=== PATIENT | male | born 1935 | race Caucasian/White ===

== ENCOUNTER → 2017-09-17 | Outpatient (CLI) | payer MEDICARE ==
[~2017-09-17] MED LIST: ASPIRIN325 MG PO; COLACE100 MG PO; CRESTOR10 MG PO; IRBESARTAN150 MG PO; JANUVIA100 MG PO; MULTIVITAMINS1 EAC7 PO; VITAMIN D1000 UNI1 PO
--- NOTE | 2017-09-17 14:45 | Diagnostic Imaging Report ---
PROCEDURE: CT ABDOMEN AND PELVIS WITHOUT CONTRAST COMPARISON:[facility], CT, CT ABDOMEN/PELVIS WO, 08/06/2016, 13:46. INDICATIONS:RIGHT FLANK PAIN. RENAL STONES TECHNIQUE: Axial CT images through the abdomen and pelvis were obtained without contrast. Coronal and sagittal reformations were created. DLP: 611.14 mGY-cm FINDINGS: Right kidney: 3 mm calculus in the upper pole measured less than 1 mm on previous exam. Pixel-sized calculus in the lower pole is new. No renal mass or hydronephrosis. Left kidney: Multiple clustered calculi in the interpolar region with the largest calculus measuring 8 mm. These are new. Lower pole calculus measures 6 x 6 mm and is larger. No hydronephrosis or perinephric inflammation. The exophytic cyst in the anterior upper pole measures 2.5 x 3.6 cm and is stable. Bladder/ureters: The ureters are normal in diameter throughout their course without calculus. The bladder is partially distended but otherwise normal. Liver: Normal attenuation. No mass. Spleen: Normal size. No mass. Biliary: Present and is normal. No biliary ductal dilatation. Pancreas: Diffuse fatty atrophy without mass or ductal dilatation. Adrenal Glands: No mass. Vasculature: The aorta is normal in diameter. Scattered calcifications are present. GI: Small hiatal hernia. The stomach appears normal. Small bowel and large bowel are normal in diameter with normal wall thickness. There are scattered diverticula in the large bowel without associated inflammation. The appendix is normal. Peritoneum/Retroperitoneum: No free fluid or fluid collection. Lymph nodes: No enlarged abdominal retroperitoneal lymph nodes. Reproductive organs: Prostate gland and seminal vesicles are normal in morphology. MSK: Median sternotomy is well healed. No focal osseous lesions. Lung bases: No mass or infiltrate. Stable bibasilar reticulation. Small pleural effusions have resolved. CONCLUSION: 1. New and enlarging calculi in each kidney. No obstructive uropathy. 2. Resolved pleural effusions. 3. Other findings as described above are stable. Dictated by: Chavez Morales M.D. on 09/17/2017 at 14:50 Electronically approved by: Chavez Morales M.D. on 09/17/2017 at 14:50
== END ==
LOC: CT 12:43
PROVIDERS: ATTEND Urology
DX: N20.0 Calculus of kidney (principal)
CPT/HCPCS: 74176

== ENCOUNTER → 2017-12-13 | Outpatient (CLI) | payer MEDICARE | LOC: RAD 08:33 | PROVIDERS: ATTEND Internal Medicine Cardiovascular Disease | DX: R07.9 Chest pain, unspecified (principal); I25.10 Atherosclerotic heart disease of native coronary artery without angina pectoris ==

== ENCOUNTER 2018-01-02 12:57 | Observation (INO) | payer MEDICARE ==
[~2018-01-02] VITALS: Ht 180.3 cm; Wt 95.3 kg
--- OUTSIDE RECORDS SUMMARY | 2018-01-02 12:59 | XMS REPORT | Summary of Care ---
Author Author INDY CHOWDHURY M.D. Organization Unknown Address [facility] Phone Unavailable Care Team Providers Care Engineering Associate Name Role Phone INDY CHOWDHURY M.D. Unavailable Unavailable HOLLAND SOTO DO Unavailable Unavailable Unavailable Unavailable Functional Status Name Dates Details Functional status health issues are not documented Status: Name Dates Details Cognitive status health issues are not documented Status: Problems Name Dates Details High blood pressure (401.9, I10) Status: Active Excessive ear wax (380.4, H61.20) Status: Active Medications Name Dates Details Aleve TABS Active Aspirin TABS * Refills: 0 Active Benadryl Allergy TABS * Refills: 0 Active Centrum TABS * Refills: 0 Active Atorvastatin Calcium TABS * Refills: 0 Active Furosemide TABS * Refills: 0 Active Valsartan TABS * Refills: 0 Active Metoprolol Tartrate TABS * Refills: 0 Active Tradjenta TABS * Refills: 0 Active Januvia TABS * Refills: 0 Active Vitamin D CAPS * Refills: 0 Active Oxybutynin Chloride TABS * Refills: 0 Active Tamsulosin HCl CAPS * Refills: 0 Active Allergies and Adverse Reactions Name Dates Details No Known Allergies (Allergy) Status: Active Past Medical History Name Dates Details History of arthritis (V13.4, Z87.39) Status: Resolved History of Depressive disorder (311, F32.9) Status: Resolved Procedures Procedure Dates Details History of Heart Surgery Completed Immunization Name Dates Details Immunizations not documented Family History Name Dates Details No pertinent family history Comments: Other Status: Active Social History Name Dates Details - Status: Name Dates Details Never smoker Vital Signs Date Test Result Details :42 BP Systolic 116 mm[Hg] Status: BP Diastolic 77 mm[Hg] Status: Height 70 in Status: Weight 205 lb Status: Body Mass Index Calculated 29.41 kg/m2 Status: Body Surface Area Calculated 2.11 m2 Status: Heart Rate 87 /min Status: Results Date Description Value Details Results not documented Plan of Care Name Dates Details Planned Observations Planned Goals not documented Planned Encounters Appointment; INDY CHOWDHURY M.D. On: 06-Jan-2018 11:00 Interventions Provided Plan* 1. Cerumen removed. Fu in 6 months. Instructions Name Dates Details Instructions not documented Encounters Appointment; INDY CHOWDHURY M.D. Encounter Diagnosis: Problem not documented On: 20-Mar-2016 13:30 Appointment; INDY CHOWDHURY M.D. Encounter Diagnosis: Problem not documented On: 18-Sep-2016 13:30 Appointment; INDY CHOWDHURY M.D. Encounter Diagnosis: Problem not documented On: 12-Oct-2016 10:30 Appointment; INDY CHOWDHURY M.D. Encounter Diagnosis: Problem not documented On: 09-Jul-2017 8:15
--- OUTSIDE RECORDS SUMMARY | 2018-01-02 12:59 | XMS REPORT ---
Author Author [facility] Address Unknown Phone Unavailable Care Team Providers Care Exchange Mechanic Name Role Phone Dion GOODEN Unavailable Unavailable HAMPEL, DISHA Unavailable Unavailable Problems This patient has no known problems. Allergies, Adverse Reactions, Alerts This patient has no known allergies or adverse reactions. Medications This patient has no known medications. Results Test Description Test Time Test Comments Text Results Atomic Results Result Comments Stress Test - Treadmill ONLY 2017-12-17 16:13:00 [place] [id number] Patient Name : GILDARDO PENA MR #: [id number] : 1935 Age/Sex: 82/M Adm Physician : RAS GOODEN MD Admit Date : Location : RAD Room/Bed : REPORT: Cardiology Report DATE OF STUDY: December 17, 2017 NUCLEAR STRESS TEST PROCEDURE INDICATIONS: Chest pain, history of CAD, preoperative evaluation. INTERPRETING AND SUPERVISING PHYSICIAN: Ras Oneal MD, Interventional Cardiology. INTERPRETATION: At rest, heart rate was 56, blood pressure 134/77. Resting EKG was normal sinus rhythm, normal EKG. After Lexiscan was administered, the heart rate nolan to a peak of 77 beats per minute, and the blood pressure decreased to 116/66. There were no significant ST changes or arrhythmias. Myocardial perfusion revealed normal rest and stress perfusion. Gated images demonstrated preserved left ventricular systolic function, normal regional wall motion, with left ventricular ejection fraction of 62%. CONCLUSIONS 1. Normal hemodynamic response to Lexiscan stress. 2. Normal electrocardiographic response to Lexiscan stress. 3. Normal myocardial perfusion at rest and at stress. 4. Preserved left ventricular systolic function with left ventricular ejection fraction of 62%. Job#: [id number] Signature Date Dictated By: RAS ANSARI MD Transcribed By: SMEDS on 12/17/17 <Electronically signed by RAS ANSARI MD><<Signature on File>>12/19/17 [id number] COPY TO: CT ABDOMEN/PELVIS WO 2017-09-17 14:50:00 [place] [id number] Patient Name: GILDARDO PENA MR #: [id number] : 1935 Age/Sex: 81/M Req #: [id number] Adm Physician: Ordered by: DISHA TAPIA MD Report #: [id number] Location: CT Room/Bed: Procedure: [id number] CT/CT ABDOMEN/PELVIS WO Exam Date: 09/17/17 Exam Time: 1326 REPORT STATUS: Signed PROCEDURE: CT ABDOMEN AND PELVIS WITHOUT CONTRAST COMPARISON: [facility], CT, CT ABDOMEN/PELVIS WO, 08/06/2016, 13:46. INDICATIONS: RIGHT FLANK PAIN. RENAL STONES TECHNIQUE: Axial CT images through the abdomen and pelvis were obtained without contrast. Coronal and sagittal reformations were created. DLP: 611.14 mGY-cm FINDINGS: Right kidney: 3 mm calculus in the upper pole measured less than 1 mm on previous exam. Pixel- sized calculus in the lower pole is new. No renal mass or hydronephrosis. Left kidney: Multiple clustered calculi in the interpolar region with the largest calculus measuring 8 mm. These are new. Lower pole calculus measures 6 x 6 mm and is larger. No hydronephrosis or perinephric inflammation. The exophytic cyst in the anterior upper pole measures 2.5 x 3.6 cm and is stable. Bladder/ureters: The ureters are normal in diameter throughout their course without calculus. The bladder is partially distended but otherwise normal. Liver: Normal attenuation. No mass. Spleen: Normal size. No mass. Biliary: Present and is normal. No biliary ductal dilatation. Pancreas: Diffuse fatty atrophy without mass or ductal dilatation. Adrenal Glands: No mass. Vasculature: The aorta is normal in diameter. Scattered calcifications are present. GI: Small hiatal hernia. The stomach appears normal. Small bowel and large bowel are normal in diameter with normal wall thickness. There are scattered diverticula in the large bowel without associated inflammation. The appendix is normal. Peritoneum/Retroperitoneum: No free fluid or fluid collection. Lymph nodes: No enlarged abdominal retroperitoneal lymph nodes. Reproductive organs: Prostate gland and seminal vesicles are normal in morphology. MSK: Median sternotomy is well healed. No focal osseous lesions. Lung bases: No mass or infiltrate. Stable bibasilar reticulation. Small pleural effusions have resolved. CONCLUSION: 1. New and enlarging calculi in each kidney. No obstructive uropathy. 2. Resolved pleural effusions. 3. Other findings as described above are stable. Dictated by: Yaima Morales M.D. on 09/17/2017 at 14:50 Electronically approved by: Yaima Morales M.D. on 09/17/2017 at 14:50 Dictated By: YAIMA MORALES MD 1450 Transcribed By: DEANNA on 09/17/17 1450 COPY TO: DISHA TAPIA MD
[2018-01-02 13:52] LABS: BASOPHILS % 0.1 % (0.0-1.0); EOSINOPHILS # (AUTO) 0.1 (0.0-0.4); EOSINOPHILS % 0.9 % (0.0-6.0); HEMATOCRIT 38.3 % (38.2-49.6); HEMOGLOBIN 12.5 g/dL (14.0-18.0); LYMPHOCYTES # (AUTO) 0.7 (1.0-3.2); MEAN CORPUSCULAR HEMOGLOBIN 29.5 pg (28-32); MEAN CORPUSCULAR HGB CONC 32.6 g/dL (31-35); MEAN CORPUSCULAR VOLUME 90.3 fL (81-99); MONOCYTES # (AUTO) 1.1 (0.2-0.8); MONOCYTES % 10.7 % (4.4-11.3); NEUTROPHILS # (AUTO) 8.6 (2.1-6.9); NEUTROPHILS % 80.9 % (38.7-80.0); PLATELET COUNT 131 x10e3/uL (140-360); RED BLOOD COUNT 4.24 x10e6/uL (4.3-5.7); RED CELL DISTRIBUTION WIDTH 13.2 % (11.7-14.4)
[2018-01-02 14:03] LABS: INR 1.06; PARTIAL THROMBOPLASTIN TIME 34.8 seconds (23.8-35.5); PROTHROMBIN TIME 14.8 seconds (11.9-14.5)
[2018-01-02 14:10] LABS: ALBUMIN 3.7 g/dL (3.5-5.0); ANION GAP 13.2 mmol/L (8-16); CREATININE, SERUM 2.09 mg/dL (0.72-1.25); POTASSIUM 4.2 mmol/L (3.5-5.1)
[2018-01-02 14:17] LABS: CREATINE KINASE MB 1.9 ng/mL (0-5.0)
--- NOTE | 2018-01-02 14:32 | Diagnostic Imaging Report ---
EXAMINATION: CHEST SINGLE (PORTABLE) COMPARISON: None INDICATION: Leg swelling, stone DISCUSSION: Frontal view of the chest obtained at 1410 hours. HEART AND MEDIASTINUM: The heart is enlarged. The aorta is mildly ectatic. There are postoperative changes suggestive of bypass LINES: None. LUNGS: Mild hyperinflation. No mass or infiltrate. No pneumonia or pulmonary edema. PLEURA: No pleural effusion or pneumothorax. BONES AND SOFT TISSUES: Median sternotomy wires are intact. The soft tissues are normal. IMPRESSION: Cardiomegaly without vascular congestion. No acute pulmonary process. Signed by: Dr. Chavez Morales MD on 01/02/2018 2:28 PM
[2018-01-02] MEDS ORDERED: KETOROLAC TROMETHAMINE 30 MG/ML VIAL IV ONE (15:00)
--- NOTE | 2018-01-02 15:00 | Diagnostic Imaging Report ---
CT Abdomen and Pelvis without contrast INDICATION: Renal stones, abdominal pain TECHNIQUE: Thin collimation axial images obtained from the diaphragm to the level of the pubic symphysis without nonionic intravenous contrast. RADIATION DOSE: Total DLP: 612.7 mGy*cm Estimated effective dose: (DLP x 0.015 x size factor) mSv CTDIvol has been reviewed. It is below the limits set by the Radiation Protocol Committee (RPC). COMPARISON: CT abdomen/pelvis 09/17/2017. ABDOMEN FINDINGS: Lung Bases: Mild hyperinflation. Reticulation of the middle lobe is stable. New subsegmental atelectasis of the left lung base. There is a small hiatal hernia. Liver: Normal in attenuation without mass. Gallbladder: Present and appears normal. No ductal dilatation. Pancreas: Diffusely atrophic. No mass or ductal dilatation. Spleen: Measures 13 cm in length. No mass. Adrenal Glands: No evidence for mass. Kidneys: Right: Calculus in the upper pole measures 4 mm. No collecting system dilatation. No cortical mass. Left: Diffusely edematous with perinephric inflammation. Multiple intrarenal calculi, the largest measuring 10 mm. Upper pole cyst measures 3.3 cm and is stable. The collecting system is dilated. Lymph Nodes: No enlarged abdominal or retroperitoneal lymph nodes.. Aorta: Normal in diameter. PELVIS FINDINGS: Bowel: Stomach: Normal. Small Bowel: Normal in caliber with normal wall thickness. Large Bowel: Scattered diverticula. No associated inflammation. Mild to moderate stool burden. Appendix: Normal. Bladder: Normal. Ureters: Calculus in the proximal/mid left ureter measures 8 mm. No calculus in the remainder of the ureter. Right ureter is normal in diameter throughout its course without calculus. Prostate gland and seminal vesicles are normal. No free fluid or fluid collection. Bones: Mild degenerative changes of the spine. No compression fractures. Trace anterolisthesis of L4 on L5 is stable without pars defects. Bone island in the L4 vertebral body is stable. Soft tissues: Unremarkable. IMPRESSION: 1. Obstructing calculus in the proximal/mid left ureter. 2. Bilateral intrarenal calculi, the largest in the left kidney. Stable left renal cyst. 3. Diverticulosis coli. Small hiatal hernia. Signed by: Dr. Chavez Morales MD on 01/02/2018 2:56 PM
[2018-01-02] MEDS ORDERED: MORPHINE SULFATE 2 MG/ML SYR IV PRN (16:00)
[2018-01-02] MEDS: SODIUM CHLORIDE 0.9% 1000ML 1,000 ML IV SCH (17:10)
[2018-01-02] MEDS: CEFTRIAXONE SOD 1 GM VIAL IV SCH (17:10)
[2018-01-02 17:43] LABS: BILIRUBIN,URINE NEGATIVE (NEGATIVE); CLARITY,URINE CLEAR (CLEAR); COLOR,URINE YELLOW (YELLOW); KETONES,URINE NEGATIVE (NEGATIVE); LEUKOCYTE ESTERASE ,URINE NEGATIVE (NEGATIVE); NITRITE,URINE NEGATIVE (NEGATIVE); PROTEIN,URINE DIPSTICK 1+ (NEGATIVE); URINE UROBILINOGEN 0.2 mg/dL (0.2 - 1)
[2018-01-02 17:46] LABS: AMORPHOUS SEDIMENT,URINE MODERATE (FEW); EPITHELIAL CELLS,URINE RARE /LPF; RBC,URINE 0-5 /HPF (0-5); WBC,URINE (MAN) 0-5 /HPF (0-5)
[2018-01-02 20:00] VITALS: BP 148/64
[2018-01-02 21:00] VITALS: BP 148/64
[2018-01-03] VITALS (9 sets, daily range): BP systolic 102–176; BP diastolic 55–77
[2018-01-03] MEDS: SODIUM CHLORIDE 0.9% 1000ML 1,000 ML IV SCH ×3 (01:15→12:30)
[2018-01-03 06:16] LABS: BASOPHILS % 0.2 % (0.0-1.0); EOSINOPHILS # (AUTO) 0.2 (0.0-0.4); EOSINOPHILS % 1.7 % (0.0-6.0); HEMATOCRIT 34.7 % (38.2-49.6); HEMOGLOBIN 11.3 g/dL (14.0-18.0); LYMPHOCYTES # (AUTO) 0.7 (1.0-3.2); LYMPHOCYTES % 8.2 % (18.0-39.1); MEAN CORPUSCULAR HEMOGLOBIN 29.6 pg (28-32); MEAN CORPUSCULAR HGB CONC 32.6 g/dL (31-35); MEAN CORPUSCULAR VOLUME 90.8 fL (81-99); MONOCYTES % 11.8 % (4.4-11.3); NEUTROPHILS # (AUTO) 6.7 (2.1-6.9); NEUTROPHILS % 77.6 % (38.7-80.0); PLATELET COUNT 110 x10e3/uL (140-360); RED BLOOD COUNT 3.82 x10e6/uL (4.3-5.7); RED CELL DISTRIBUTION WIDTH 13.2 % (11.7-14.4)
[2018-01-03 06:38] LABS: ANION GAP 12.9 mmol/L (8-16); CALCIUM 8.8 mg/dL (8.4-10.2); CREATININE, SERUM 1.9 mg/dL (0.72-1.25); POTASSIUM 3.9 mmol/L (3.5-5.1)
[2018-01-03] MEDS ORDERED: IOPAMIDOL 610MG/1ML 300 MG/ML VIAL IV ONE (06:53)
--- NOTE | 2018-01-03 07:50 | History and Physical ---
PRIMARY CARE PHYSICIAN: Dr. Packer CHIEF COMPLAINT: Left flank pain. HISTORY OF PRESENT ILLNESS: This is an 82-year-old man with a history of ureterolithiasis, now developing left flank pain in addition to severe deconditioning and difficulty with walking requiring assistance with even standing. The patient has increased fluid retention in his lower extremities combined with the flank pain. He came to the hospital for further evaluation and management. Here he was found to have an 8 mm left ureteral stone, which is in the midproximal region and obstructive. Urology was consulted. He was admitted for further evaluation and management. The patient also had a fall 3 days ago due to his ambulatory dysfunction and difficulties. PAST MEDICAL HISTORY: Hypertension, hyperlipidemia, coronary artery disease, status post coronary artery bypass grafting, diabetes mellitus, type 2, unstable angina, obesity, sepsis secondary to urinary tract infection in May of 2016, acute kidney injury, complicated urinary tract infection with left ureteral stone, left ureterolithiasis, left hydroureter and hydronephrosis, overweight state. PAST SURGICAL HISTORY: Coronary artery bypass grafting and right wrist. ALLERGIES: PER ELECTRONIC MEDICAL RECORD. FAMILY HISTORY/SOCIAL HISTORY: Patient is single. He has 3 children. No alcohol, illicits or cigarettes. MEDICATIONS: Per electronic medical record. REVIEW OF SYSTEMS: Denies any dizziness, chest pain, shortness of breath. Denies any fever, chills, sweats. Denies any headache, vision changes, leg pain. PHYSICAL EXAMINATION VITAL SIGNS: Have been reviewed. GENERAL: A tired-appearing man resting in bed. HEENT: Anicteric. His left eye is opaque. CARDIOVASCULAR: Normal S1 and S2. LUNGS: Moderate breath sounds. ABDOMEN: Soft and nondistended. Minimal tenderness in the left abdominal region. EXTREMITIES: He has 1+ leg edema bilaterally. SKIN: Dry. PSYCHIATRIC: Flat affect. NEUROLOGIC: He is alert and appropriate. He moves all extremities. LABS: Reviewed. MEDICATIONS: Reviewed. ASSESSMENT: An 82-year-old man with: 1. Left ureterolithiasis. 2. Left flank pain. 3. Diabetes mellitus, type 2. 4. Coronary artery disease. 5. Acute kidney injury. 6. Hyperbilirubinemia. 7. Obstructive uropathy. 8. Hyperbilirubinemia. 9. Diverticulosis. 10. Hiatal hernia. PLAN 1. Urology consultation. 2. Rehydrate the patient. 3. Ambulate the patient. 4. Physical therapy consultation. 5. Skilled facility placement consultation per family request. 6. Will continue with SCDs. Will continue with antibiotics empirically. Follow up urology recommendations. Job#: [id number] RI
[2018-01-03] MEDS ORDERED: FENTANYL CITRATE/PF 100MCG/2 ML INJ ONE ×2 (08:38→17:14)
[2018-01-03] MEDS: PHENAZOPYRIDINE HCL 100 MG TAB PO SCH ×3 (10:42→17:48)
[2018-01-03] MEDS: MORPHINE SULFATE INJ 4 MG/ML INJ IV PRN ×2 (14:10→19:17)
[2018-01-03] MEDS: ONDANSETRON HCL INJ 2 MG/ML VIAL IV PRN (14:11)
[2018-01-03] MEDS ORDERED: SEVOFLURANE INHAL SOLN 250 ML PEN BTL ONE (17:09)
[2018-01-03] MEDS ORDERED: LIDOCAINE HCL 2% LOCAL INJ 5 ML SDV VIAL INJ ONE (17:09)
[2018-01-03] MEDS ORDERED: ONDANSETRON HCL INJ 2 MG/ML VIAL ONE (17:09)
[2018-01-03] MEDS ORDERED: PROPOFOL IV EMULSION 10 MG/ML 20 ML VIAL ONE (17:09)
[2018-01-03] MEDS ORDERED: DEXAMETHASONE SOD PHOS INJ 4 MG/ML VIAL ONE (17:09)
[2018-01-03] MEDS: CEFTRIAXONE SOD 1 GM VIAL IV SCH (17:48)
[2018-01-04] VITALS (8 sets, daily range): BP systolic 127–164; BP diastolic 58–85
[2018-01-04] MEDS: MORPHINE SULFATE INJ 4 MG/ML INJ IV PRN (01:21)
[2018-01-04 06:24] LABS: BASOPHILS % 0.3 % (0.0-1.0); EOSINOPHILS # (AUTO) 0.1 (0.0-0.4); EOSINOPHILS % 0.8 % (0.0-6.0); HEMATOCRIT 33.6 % (38.2-49.6); HEMOGLOBIN 11.2 g/dL (14.0-18.0); LYMPHOCYTES # (AUTO) 0.8 (1.0-3.2); LYMPHOCYTES % 10.2 % (18.0-39.1); MEAN CORPUSCULAR HEMOGLOBIN 29.7 pg (28-32); MEAN CORPUSCULAR HGB CONC 33.3 g/dL (31-35); MEAN CORPUSCULAR VOLUME 89.1 fL (81-99); MONOCYTES # (AUTO) 0.7 (0.2-0.8); MONOCYTES % 9.9 % (4.4-11.3); NEUTROPHILS # (AUTO) 5.8 (2.1-6.9); NEUTROPHILS % 78.5 % (38.7-80.0); PLATELET COUNT 110 x10e3/uL (140-360); RED BLOOD COUNT 3.77 x10e6/uL (4.3-5.7); RED CELL DISTRIBUTION WIDTH 12.9 % (11.7-14.4)
[2018-01-04 06:41] LABS: CALCIUM 8.8 mg/dL (8.4-10.2); CREATININE, SERUM 1.41 mg/dL (0.72-1.25)
[2018-01-04] MEDS: PHENAZOPYRIDINE HCL 100 MG TAB PO SCH ×3 (08:40→17:15)
[2018-01-04] MEDS: SODIUM CHLORIDE 0.9% 1000ML 1,000 ML IV SCH ×3 (08:40→16:00)
--- NOTE | 2018-01-04 09:44 | Diagnostic Imaging Report ---
PROCEDURE:X-RAY ABDOMEN - KUB COMPARISON:CT scan of the abdomen and pelvis dated 1027 2017. INDICATIONS:CALCULUS OF KIDNEY FINDINGS: There is a double-J ureteral stent overlying the left kidney with the inferior portion not visualized due to positioning. There is a non-obstructed bowel-gas pattern. Several calcifications overlie the left kidney. There are no acute osseous abnormalities. CONCLUSION: Left renal lithiasis with a partially visualized left double-J ureteral stent. Dawson Hernandez D.O. Dictated by: Dawson Hernandez D.O. on 01/04/2018 at 9:53 Electronically approved by: Dawson Hernandez D.O. on 01/04/2018 at 9:53
[2018-01-04] MEDS ORDERED: MAGNESIUM HYDROXIDE 30 ML UDC PO ONE (12:00)
[2018-01-04] MEDS: HYDRALAZINE HCL 25 MG TAB PO SCH ×2 (15:00→21:46)
[2018-01-04] MEDS: SENNA-S TABLET PO SCH (17:00)
[2018-01-04] MEDS: CEFTRIAXONE SOD 1 GM VIAL IV SCH (17:15)
[2018-01-05] MEDS: SODIUM CHLORIDE 0.9% 1000ML 1,000 ML IV SCH (00:01)
[2018-01-05 00:28] VITALS: BP 159/78
[2018-01-05] MEDS: ONDANSETRON HCL INJ 2 MG/ML VIAL IV PRN (02:36)
[2018-01-05] MEDS: MORPHINE SULFATE INJ 4 MG/ML INJ IV PRN (02:37)
[2018-01-05 05:15] VITALS: BP 151/73
[2018-01-05 07:31] LABS: ANION GAP 10.7 mmol/L (8-16); BLOOD UREA NITROGEN 20 mg/dL (7-26); BUN/CREATININE RATIO 19 (6-25); CALCIUM 8.6 mg/dL (8.4-10.2); CARBON DIOXIDE 27 mmol/L (22-29); CHLORIDE 105 mmol/L (98-107); CREATININE, SERUM 1.05 mg/dL (0.72-1.25); EST GLOMERULAR FILTRATION RATE > 60 ML/MIN (60-); GLUCOSE 99 mg/dL (74-118); POTASSIUM 3.7 mmol/L (3.5-5.1); SODIUM 139 mmol/L (136-145)
[2018-01-05 08:29] VITALS: BP 149/76
[2018-01-05 08:48] VITALS: BP 149/76
[2018-01-05] MEDS: HYDRALAZINE HCL 25 MG TAB PO SCH ×2 (08:48→16:40)
[2018-01-05] MEDS: PHENAZOPYRIDINE HCL 100 MG TAB PO SCH ×3 (08:48→17:10)
[2018-01-05] MEDS: SENNA-S TABLET PO SCH ×2 (08:48→17:09)
[2018-01-05] MEDS ORDERED: DOCUSATE SODIUM 100 MG CAP PO SCH (09:00)
[2018-01-05 12:39] VITALS: BP 139/58
[2018-01-05 17:05] VITALS: BP 134/95
[2018-01-05] MEDS: CEFTRIAXONE SOD 1 GM VIAL IV SCH (17:10)
[2018-01-14] MEDS ORDERED: PHENAZOPYRIDIN100 MG PO (06:49)
[2018-01-14] MEDS ORDERED: [UNRECOGNIZED DRUG - OTHER] PO (06:49)
[2018-01-14] MEDS ORDERED: NORCO 10-325 T1 EACH PO (06:49)
[2018-01-14] MEDS ORDERED: HYDRALAZINE HCL25 MG PO (06:49)
[2018-01-14] MEDS ORDERED: COMBIVENT RESPIM4 GM IH (06:49)
[2018-01-14] MEDS ORDERED: POTASSIUM CHLO10 ME1 PO (06:49)
[2018-01-14] MEDS ORDERED: DOCUSATE SODIU100 MG PO (06:49)
[2018-01-14] MEDS ORDERED: MULTI-VITAMIN1 EACH (06:49)
[2018-01-14] MEDS ORDERED: LASIX20 MG PO (06:49)
[2018-01-14] MEDS ORDERED: SENNA LAX8.6 MG PO (06:49)
--- NOTE | 2018-02-10 02:51 | Operative Report ---
DATE OF PROCEDURE: January 03, 2018 PREOPERATIVE DIAGNOSES 1. Left hydronephrosis due to stone. 2. Acute renal insufficiency. POSTOPERATIVE DIAGNOSES 1. Left hydronephrosis due to stone. 2. Acute renal insufficiency. OPERATIONS PERFORMED 1. Cystourethroscopy with bilateral ureteral catheterization and retrograde ureteropyelography (separate procedure performed for the renal failure). 2. Interpretation of retrograde ureteropyelography. 3. Supervision of fluoroscopy. No radiologist present. 4. Cystourethroscopy with insertion of left indwelling ureteral stent (separate procedure performed to relieve the hydronephrosis). ANESTHESIA: General. COMPLICATIONS: None. CLINICAL SUMMARY: Alex Leiva is an 82-year-old man with complicated urological history. He has an obstructing stone in the left ureter and hydronephrosis. He needs multiple additional procedures. He is an ill man and requires fairly significant monitoring. He is aware of the risks of bleeding infection injury to adjacent structures, need for additional procedures and elected to proceed. OPERATIVE PROCEDURE IN DETAIL: Informed consent was verified. Alex Leiva was properly identified, taken to operating room, placed on the cystoscopy table in supine position. Anesthesia was uneventfully begun. The patient was then carefully and gently repositioned in dorsal lithotomy position with all pressure points well padded. His genitalia were prepared and draped in usual sterile fashion. The 22.5-Hungarian cystoscope sheath with the visual obturator in place was atraumatically inserted into the patient's urethra. It was guided down to the relatively unremarkable urethra through the normal sphincteric region through the prostate bed, which exhibited BPH. We entered the patient's bladder. We identified yellowish sand within the bladder. Normally positioned and configured ureteral orifices were identified. There were trabeculations noted. A ureteral catheter was used to cannulate each ureter and retrograde ureteropyelography was performed. Interpretation of retrograde ureteropyelography: Contrast was instilled in retrograde fashion bilaterally. There were no tumors, no stones, no diverticula on the right hand side. The left hand side exhibited a left ureteral stone that was obstructing. There were multiple left-sided renal filling defects consistent with radiolucent stones or at least poorly calcified stones. With the utilization of a hydrophilic guidewire, we were able to pass by the ureteral stone. Subsequently, were able to negotiate an indwelling ureteral stent. It was coiled in patient's kidney, as well as patient's bladder. The retaining suture was cut short. The patient's bladder was then drained. The cystoscope was withdrawn and the patient was uneventfully reversed from anesthesia and taken to recovery room in stable condition. Plans will be to proceed with routine postoperative care once the patient is stable, will plan on performing next stage of his stone management. It will include either an ESWL or a ureteroscopic procedure. Job#: [id number] CQ
== END 2018-01-05 18:31 ==
LOC: ER 12:57 → ERHOLD 16:00 → MED/SURG 18:50
PROVIDERS: ADMIT Internal Medicine; ATTEND Internal Medicine
DX: N13.2 Hydronephrosis with renal and ureteral calculous obstruction (principal); I25.10 Atherosclerotic heart disease of native coronary artery without angina pectoris; Z95.1 Presence of aortocoronary bypass graft; E11.9 Type 2 diabetes mellitus without complications; E78.5 Hyperlipidemia, unspecified; Z82.49 Family history of ischemic heart disease and other diseases of the circulatory system; Z91.81 History of falling; I10 Essential (primary) hypertension; N17.9 Acute kidney failure, unspecified; E80.6 Other disorders of bilirubin metabolism; N13.9 Obstructive and reflux uropathy, unspecified; K57.90 Diverticulosis of intestine, part unspecified, without perforation or abscess without bleeding; K44.9 Diaphragmatic hernia without obstruction or gangrene; D64.9 Anemia, unspecified; N40.0 Benign prostatic hyperplasia without lower urinary tract symptoms
CPT/HCPCS: 36415 ×4; 51700; 52332; 71045; 74018; 74176; 74420; 80048 ×3; 80053; 81001; 82550; 82553; 82948 ×4; 83880; 83970; 84484; 84550; 85025 ×3; 85610; 85730; 87086 ×2; 93005; 97116 ×3; 97139 ×3; 97161; 99284; C2617; G0378 ×4; G8978; G8979; J0696 ×4; J1100; J1885; J2001; J2270 ×4; J2405 ×2; J2704; J7030 ×4; Q9967

== ENCOUNTER → 2018-01-14 | Day surgery (SDC) | payer MEDICARE ==
[~2018-01-14] MED LIST changes: +CEFTRIAXONE SOD 1 GM VIAL ONE; +COMBIVENT RESPIM4 GM IH; +DEXAMETHASONE SOD PHOS INJ 4 MG/ML VIAL ONE; +DOCUSATE SODIU100 MG PO; +EPHEDRINE SULFATE INJ 50 MG/10 ML SYR ONE; +FENTANYL CITRATE/PF 100MCG/2 ML INJ ONE; +HYDRALAZINE HCL25 MG PO; +IOPAMIDOL 610MG/1ML 300 MG/ML VIAL IV ONE; +LASIX20 MG PO; +LIDOCAINE HCL 2% LOCAL INJ 5 ML SDV VIAL INJ ONE; +MIDAZOLAM HCL 2 MG/2 ML VIAL ONE; +MULTI-VITAMIN1 EACH; +NORCO 10-325 T1 EACH PO; +ONDANSETRON HCL INJ 2 MG/ML VIAL ONE; +PHENAZOPYRIDIN100 MG PO; +POTASSIUM CHLO10 ME1 PO; +PROPOFOL IV EMULSION 10 MG/ML 20 ML VIAL ONE; +SENNA LAX8.6 MG PO; +SEVOFLURANE INHAL SOLN 250 ML PEN BTL ONE; +[UNRECOGNIZED DRUG - OTHER] PO
--- NOTE | 2018-01-14 07:43 | Diagnostic Imaging Report ---
Abdomen, 2 views dated 01/14/2018. History: Renal stones Comparison: KUB dated 01/04/[address] of the abdomen and pelvis dated 01/02/2018 Findings: The small intrarenal stones visualized on the prior CT are not readily apparent on this study due to overlying bowel gas interference. There is a left double-J ureteral stent present. Stones around the pigtail within the renal pelvis are noted. The intestinal gas pattern is nonobstructive. There no masses. The osseous structures are intact. IMPRESSION: 1. No acute abdominal abnormality. 2. Left double-J ureteral stent has been placed with apparent stones around the pigtail in the renal pelvis. Signed by: Dr. Dawson Hernandez DO on 01/14/2018 7:39 AM
[2018-01-14 12:40] VITALS: BP 155/82
--- NOTE | 2018-02-14 06:47 | Operative Report ---
DATE OF PROCEDURE: January 14, 2018 PREOPERATIVE DIAGNOSIS: Left nephrolithiasis. POSTOPERATIVE DIAGNOSIS: Left nephrolithiasis. OPERATIONS PERFORMED 1. Left-sided extracorporeal shock wave lithotripsy (staged procedure). 2. Supervision of fluoroscopy. No radiologist presents. ANESTHESIA: General. COMPLICATIONS: None. CLINICAL SUMMARY: Alex Leiva is an 82-year-old complicated patient. He has a stent in place. He is brought for lithotripsy. He is aware of the risks of bleeding, infection, injury to adjacent structures, need for additional procedures, and elected proceed. OPERATIVE PROCEDURE IN DETAIL: Informed consent was verified. Alex Leiva was properly identified and taken to the operating room and placed on the lithotripsy table in the supine position. Anesthesia was uneventfully begun. The patient's left midpole stone was identified by biplanar fluoroscopy, and 2000 shocks were delivered to this 10-mm stone with excellent fragmentation. I could not visualize a stone in the lower pole, and I could not visualize a stone within the ureter. The stent was in good position. The patient was then uneventfully reversed from anesthesia and taken to the recovery room in stable condition. There were no complications to the procedure. He tolerated the procedure well. Plans will be to return the patient to the operating room to perform a left ureteroscopy with laser standing by, and remove his stent. Job#: [id number] KENNETH
== END | disposition home or self-care (01) ==
LOC: OR 05:36
PROVIDERS: ATTEND Urology
DX: N20.0 Calculus of kidney (principal); Z96.0 Presence of urogenital implants; I25.709 Atherosclerosis of coronary artery bypass graft(s), unspecified, with unspecified angina pectoris; I10 Essential (primary) hypertension; E11.9 Type 2 diabetes mellitus without complications; E03.9 Hypothyroidism, unspecified; E78.5 Hyperlipidemia, unspecified; Z79.82 Long term (current) use of aspirin; Z79.84 Long term (current) use of oral hypoglycemic drugs; Z95.1 Presence of aortocoronary bypass graft
CPT/HCPCS: 36415; 50590; 74018; 82948; J0696; J1100; J2001; J2250; J2405; J2704

== ENCOUNTER 2018-02-06 16:05 | Emergency (ER) | payer MEDICARE ==
[~2018-02-06] VITALS: Ht 180.3 cm; Wt 95.3 kg
[~2018-02-06 16:05] MED LIST changes: -CEFTRIAXONE SOD 1 GM VIAL ONE; -DEXAMETHASONE SOD PHOS INJ 4 MG/ML VIAL ONE; -EPHEDRINE SULFATE INJ 50 MG/10 ML SYR ONE; -FENTANYL CITRATE/PF 100MCG/2 ML INJ ONE; -IOPAMIDOL 610MG/1ML 300 MG/ML VIAL IV ONE; -LIDOCAINE HCL 2% LOCAL INJ 5 ML SDV VIAL INJ ONE; -MIDAZOLAM HCL 2 MG/2 ML VIAL ONE; -ONDANSETRON HCL INJ 2 MG/ML VIAL ONE; -PROPOFOL IV EMULSION 10 MG/ML 20 ML VIAL ONE; -SEVOFLURANE INHAL SOLN 250 ML PEN BTL ONE
--- NOTE | 2018-02-06 17:37 | Diagnostic Imaging Report ---
Examination: CT head without contrast Clinical Indication: Fall. Head injury. Technique: Transaxial noncontrast images from the skull base through the vertex were obtained. Sagittal and coronal reformatted images were done. Dose modulation, iterative reconstruction, and/or weight based adjustment of the mA/kV was utilized to reduce the radiation dose to as low as reasonably achievable. Comparison: None. Findings: Scalp: There is a small left frontal scalp hematoma. Bones: Intact. No fractures. No blastic or lytic lesions. Brain sulci: Mild volume loss for patient's age. Ventricles: No hydrocephalus. Extra-axial space: No abnormalities. Parenchyma: There are confluent areas of low-attenuation within subcortical and periventricular white matter, nonspecific, but could represent microvascular ischemic disease. A chronic lacunar infarct is demonstrated in the right thalamus. No masses, hemorrhage, or acute or chronic cortical based vascular insults. Suprasellar region: No abnormalities. Craniocervical junction: The foramen magnum is patent. No Chiari one malformation. Incidental findings: Atherosclerotic calcification of the cavernous and supraclinoid internal carotid and V4 segments of the bilateral vertebral arteries. Impression: 1. Small left frontal scalp hematoma. 2. No associated fracture or acute intracranial hemorrhage. 3. Mild chronic microvascular ischemic change and mild volume loss. 4. 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 Signed by: Dr. Martha Saleem M.D. on 02/06/2018 5:34 PM
--- NOTE | 2018-02-06 17:39 | Diagnostic Imaging Report ---
Examination: CT CERVICAL SPINE WITHOUT HISTORY:Neck injury after fall. COMPARISON:None. TECHNIQUE: Multidetector helical axial images were obtained without contrast from the foramen magnum to T1. Coronal and sagittal reformatted images were done. Bone and soft tissue windows were evaluated. Dose modulation, iterative reconstruction, and/or weight based adjustment of the mA/kV was utilized to reduce the radiation dose to as low as reasonably achievable. FINDINGS: Alignment:Normal alignment and lordosis. Vertebrae: Normal height and density. No acute fracture, infection or neoplasm. Disc space heights: Normal height. Caliber of spinal canal: Developmentally normal. Posterior fossa and craniocervical junction: Foramen magnum patent. No Chiari 1 malformation. Soft tissues: Atherosclerotic calcification of the bilateral carotid bifurcations. Degenerative changes: Severe joint space narrowing at C1-C2. No disc bulge/ herniation or foraminal or canal stenosis. IMPRESSION: No acute abnormalities. Signed by: Dr. Matrha Saleem M.D. on 02/06/2018 5:35 PM
[2018-02-06 19:15] VITALS: BP 160/85
== END 2018-02-06 18:30 | disposition home or self-care (01) ==
LOC: ER 16:05
DX: S00.81XA Abrasion of other part of head, initial encounter (principal); S50.312A Abrasion of left elbow, initial encounter; S80.212A Abrasion, left knee, initial encounter; S80.211A Abrasion, right knee, initial encounter; W01.0XXA Fall on same level from slipping, tripping and stumbling without subsequent striking against object, initial encounter; Y93.01 Activity, walking, marching and hiking; Y92.480 Sidewalk as the place of occurrence of the external cause; I10 Essential (primary) hypertension; E11.9 Type 2 diabetes mellitus without complications; I25.10 Atherosclerotic heart disease of native coronary artery without angina pectoris
CPT/HCPCS: 70450; 72125; 99283

== ENCOUNTER → 2018-03-02 | Day surgery (SDC) | payer MEDICARE ==
[2018-02-25 12:50] LABS: BASOPHILS % 0.3 % (0.0-1.0); EOSINOPHILS # (AUTO) 0.1 (0.0-0.4); EOSINOPHILS % 1.9 % (0.0-6.0); HEMATOCRIT 38.6 % (38.2-49.6); HEMOGLOBIN 12.5 g/dL (14.0-18.0); LYMPHOCYTES # (AUTO) 0.9 (1.0-3.2); LYMPHOCYTES % 16.3 % (18.0-39.1); MEAN CORPUSCULAR HEMOGLOBIN 29.3 pg (28-32); MEAN CORPUSCULAR HGB CONC 32.4 g/dL (31-35); MEAN CORPUSCULAR VOLUME 90.4 fL (81-99); MONOCYTES # (AUTO) 0.6 (0.2-0.8); MONOCYTES % 9.5 % (4.4-11.3); NEUTROPHILS # (AUTO) 4.1 (2.1-6.9); NEUTROPHILS % 71.7 % (38.7-80.0); PLATELET COUNT 147 x10e3/uL (140-360); RED BLOOD COUNT 4.27 x10e6/uL (4.3-5.7); RED CELL DISTRIBUTION WIDTH 13.3 % (11.7-14.4)
--- NOTE | 2018-02-25 13:35 | Diagnostic Imaging Report ---
EXAM: Abdomen 2 Views INDICATION: ^PRE OP ^[id number] ^[id number] ^ ORDERS COMPARISON: KUB dated 01/14/2018 FINDINGS: Nonobstructive bowel gas pattern. Mild gaseous distention of bowel loops throughout the abdomen. Left nephroureteral stent in unchanged position. Unchanged left pelvic phlebolith. Partially seen median sternotomy wires and surgical clips overlying left lung base. Degenerative changes of spine. IMPRESSION: 1. Nonobstructive bowel gas pattern. 2. No significant interval change from prior exam. 3. Stable position of double-J left nephroureteral stent. Signed by: Dr. Hai Casey MD on 02/25/2018 1:32 PM
[2018-02-25 13:46] LABS: ALANINE AMINOTRANSFERASE 16 IU/L (0-55); ALBUMIN 3.6 g/dL (3.5-5.0); ALKALINE PHOSPHATASE 92 IU/L (40-150); ANION GAP 15.1 mmol/L (8-16); BLOOD UREA NITROGEN 17 mg/dL (7-26); BUN/CREATININE RATIO 18 (6-25); CALCIUM 9.2 mg/dL (8.4-10.2); CARBON DIOXIDE 26 mmol/L (22-29); CHLORIDE 103 mmol/L (98-107); CREATININE, SERUM 0.92 mg/dL (0.72-1.25); EST GLOMERULAR FILTRATION RATE > 60 ML/MIN (60-); GLUCOSE 87 mg/dL (74-118); POTASSIUM 4.1 mmol/L (3.5-5.1); SODIUM 140 mmol/L (136-145)
[~2018-03-02] MED LIST changes: +ATORVASTATIN CA80 MG PO; +BELLADONNA/OPIUM 30 MG SUPP RC ONE; +BENADRYL25 M1 PO; +DEXAMETHASONE SOD PHOS INJ 4 MG/ML VIAL ONE; +EPHEDRINE SULFATE INJ 50 MG/10 ML SYR ONE; +FENTANYL CITRATE/PF 100MCG/2 ML INJ ONE; +FISH OIL GUMMIES PO; +FLOMAX0.4 MG PO; +FLUOCINONIDE15 GM TOP; +GLYCOPYRROLATE INJ 1MG/ 5 ML SYR ONE; +IOPAMIDOL 610MG/1ML 300 MG/ML VIAL IV ONE; +LIDOCAINE HCL 2% LOCAL INJ 5 ML SDV VIAL INJ ONE; +METOPROLOL SUCC50 MG PO; +ONDANSETRON HCL INJ 2MG/ML 2ML 2 MG/ML VIAL ONE; +OXYBUTYNIN CHLO15 MG PO; +PIPERACILLIN/TAZO 2.25 GM 50 ML IV ONE; +PROPOFOL IV EMULSION 10 MG/ML 20 ML VIAL ONE; +SEVOFLURANE INHAL SOLN 250 ML PEN BTL ONE; +TRADJENTA5 MG PO; +ZETIA10 MG PO
--- NOTE | 2018-03-02 07:15 | NUR ---
SPIRITUAL CARE - Pre-Surgery Assessment: Pt in bed. Pt's partner at bedside. Pt reported supportive attention from family and friends. Intervention: I provided pastoral presence, hospitality, and sympathetic listening. I acquainted pt with availability of livestock nutrition territory manager while hospitalized. Outcome: Pt expressed appreciation for visit. No need for follow up indicated at this time. GORDON Loulain Spiritual Care Department O: [phone] Pager: [phone] ([phone] number calling from)
[2018-03-02 10:50] VITALS: BP 160/73
--- NOTE | 2018-04-19 05:00 | Operative Report ---
DATE OF PROCEDURE: March 02, 2018 PREOPERATIVE DIAGNOSES 1. Left nephrolithiasis. 2. Left indwelling ureteral stent. POSTOPERATIVE DIAGNOSES 1. Left nephrolithiasis. 2. Left indwelling ureteral stent. OPERATIONS PERFORMED: Note these are all staged procedures as part of multistage, multistep process of managing the patient's urolithiasis. 1. Cystourethroscopy with complicated removal of left indwelling ureteral stent (separate procedure performed for the diagnosis of stent). 2. Left ureteroscopy with extensive Holmium laser lithotripsy and extraction of stones (separate procedure performed for the very large residual amount of left nephrolithiasis done with insertion of a stent). 3. Radiological services for interpretation of ureteroscopy. 4. Interpretation of retrograde ureteropyelography. 5. Supervision of fluoroscopy. No radiologist present. ANESTHESIA: General. COMPLICATIONS: None. CLINICAL SUMMARY: Alex Leiva is an 82-year-old man with nephrolithiasis. He underwent ureteral stenting and underwent ESWL. He has residual stones and is brought for management. He is aware of the risks of bleeding, infection, injury to adjacent structures, need for additional procedures and elected to proceed. OPERATIVE PROCEDURE IN DETAIL: Informed consent was verified. Alex Leiva was properly identified and taken to the operating room and placed on the cystoscopy table in the supine position. Anesthesia was uneventfully begun. The patient was then carefully and gently repositioned in the dorsal lithotomy position with all pressure points well-padded. His genitalia were prepared and draped in the usual sterile fashion. The 22.5-Samoan cystoscope sheath with the visual obturator in place was atraumatically inserted in the patient's urethra. It was guided down the unremarkable urethra, through the normal sphincteric region, through the prostate bed, which was significant for visually obstructing BPH and into the patient's bladder. We identified sand throughout the bladder and a stent that was mildly encrusted emerging from left ureteral orifice. A guidewire was then placed alongside the stent and guided to the level of the patient's kidney. The stent was then grasped, completely removed and discarded. Semi-rigid ureteroscopy was then performed. The ureteroscope was brought into the left distal ureter. No stones were identified. A secondary guidewire was placed. Utilizing the a flexible ureteroscopy sheath, we brought the flexile urethroscope up into the level of the patient's kidney. We identified numerous stones. Some of these stones were very large. We performed Holmium laser lithotripsy. This was a rather extensive procedure on numerous smaller stones. Once we whittled all the stones down to a smaller size, we utilized a Nitinol tipless basket to extract the largest of the stones. We had a copious amount of fine sand remaining. The sand cannot be extracted with the basket because it is too small. Once all stone burden was pulverized and extracted, with cystoscopic and fluoroscopic guidance, an indwelling ureteral stent was then placed. It was coiled in the patient's kidney, as well as the patient's bladder. The retaining suture was cut short. Interpretation of retrograde ureteropyelography. Contrast was instilled in a retrograde fashion via the ureteroscope. There was chronic appearing mild fullness of the collecting system. There was no extravasation. The ureter was sharp and delicate. There were no obvious lesions noted. The stent was in good position, coiled in the patient's kidney, as well as the patient's bladder at the end of the case. Patient's bladder was drained. Cystoscope was withdrawn. A belladonna and opium suppository was placed. The patient was uneventfully reversed from anesthesia and taken to the recovery room in stable condition. Explicit postoperative instructions were given. Will plan to return the patient back to the operating room in several weeks to remove his stent, perform ureteroscopy and hopefully render the patient stent-free and stone-free at that time. Job#: [id number] KENNETH
== END | disposition home or self-care (01) ==
LOC: OR 06:06
PROVIDERS: ATTEND Urology
DX: N20.0 Calculus of kidney (principal); Z46.6 Encounter for fitting and adjustment of urinary device; N40.1 Benign prostatic hyperplasia with lower urinary tract symptoms; N13.8 Other obstructive and reflux uropathy; I25.709 Atherosclerosis of coronary artery bypass graft(s), unspecified, with unspecified angina pectoris; J44.9 Chronic obstructive pulmonary disease, unspecified; E11.9 Type 2 diabetes mellitus without complications; E78.6 Lipoprotein deficiency; E03.9 Hypothyroidism, unspecified; Z01.812 Encounter for preprocedural laboratory examination; Z79.82 Long term (current) use of aspirin; Z95.1 Presence of aortocoronary bypass graft
CPT/HCPCS: 36415 ×2; 52356; 74018; 74420; 80053; 82948; 85025; 87086; 88300; C1766; C2617; J1100; J2001; J2405; J2543; J2704; J3490; Q9967

== ENCOUNTER → 2018-04-13 | Day surgery (SDC) | payer MEDICARE ==
[~2018-04-13] MED LIST changes: +CEFTRIAXONE SOD 1 GM/NS 50 ML 50 ML IV ONE; -GLYCOPYRROLATE INJ 1MG/ 5 ML SYR ONE; -PIPERACILLIN/TAZO 2.25 GM 50 ML IV ONE
--- NOTE | 2018-04-13 09:10 | Diagnostic Imaging Report ---
EXAM: Abdomen 2 Views INDICATION: Pre-op COMPARISON: KUB 02/25/2018, CT Abdomen/Pelvis 01/02/18. FINDINGS: Left internal ureteral stent with proximal pigtail overlying the left kidney and distal pigtail overlying the bladder. The kidneys are partially obscured by bowel gas. The renal stones noted on CT abdomen from 01/02/18 are not well visualized by radiograph. Nonobstructive bowel gas pattern. No acute osseous abnormality. Degenerative changes of the lower lumbar spine. IMPRESSION: Left internal ureteral stent in place. The kidneys are partially obscured by bowel gas. The renal stones noted on CT abdomen from 01/02/18 are not well visualized by radiograph. Signed by: Dr. Cirilo Browning MD on 04/13/2018 9:06 AM
[2018-04-13 11:20] VITALS: BP 145/91
--- NOTE | 2018-05-02 11:28 | Operative Report ---
DATE OF PROCEDURE: 04/13/2018 SURGEON: Dre Ellis MD PREOPERATIVE DIAGNOSES: 1. Left nephrolithiasis. 2. Left indwelling ureteral stents. POSTOPERATIVE DIAGNOSES: 1. Left nephrolithiasis. 2. Left indwelling ureteral stents. OPERATIONS PERFORMED: Note, these were all staged procedures as part of a multi-stage and multi-step process in managing the patient's urolithiasis. 1. Cystourethroscopy with complicated removal of left indwelling ureteral stents (surgery performed for the diagnosis of the stent). 2. Left ureteroscopy with stone manipulation (surgery performed for the left nephrolithiasis). 3. Radiological services for supervision and interpretation of ureteroscopy. 4. Interpretation of retrograde ureteropyelography. 5. Supervision of fluoroscopy, no radiologist is present. ANESTHESIA: General. COMPLICATIONS: None. CLINICAL SUMMARY: Alex Leiva is an 82-year-old man with a stent in place. He has undergone multiple procedures. He is brought to the operating room in hopes of rendering him stent free and stone free. He and his are aware of the risks of bleeding, infection, injury to the adjacent structures, need for additional procedures, and elected to proceed. PROCEDURE IN DETAIL: Informed consent was verified. Alex Leiva was properly identified, taken to the operating room, and placed on the cystoscopy table in the supine position. Anesthesia was uneventfully begun. The patient was then carefully and gently repositioned in a dorsal lithotomy position with all pressures points well padded. His genitalia were prepared and draped in the usual sterile fashion. A 22.5 Stateless cystoscope sheath with the visual obturator in place was atraumatically inserted into the patient's urethra. It was guided on a normal distal urethra significant bulbous urethral stricture and through the normal sphincteric region and through the prostate bed with significant with small median lobe and into the patient's bladder where we identified a stent emerging from the left ureteral orifice and there was some encrustation on the stent. A guidewire was in place alongside of the stent and guided to the level of the patient's kidney. was then grasped, completely removed, and discarded. Semi-rigid uteroscope was then placed alongside of the guidewire and guided into the distal left ureter. There was some sand noted within the ureter, but no stones. We utilized a basket to sweep down the ureter and in hopes of catching and clearing any significantly sized stone, but all the stones manipulated were below the threshold of what the basket could capture. Flexible ureteroscope was then placed over the guidewire and guided at the level of the patient's kidney. Panendoscopy revealed sand in the kidney as well. No significantly sized stones were identified. We utilized the basket to try to sweep out the sand that we identified. We also vigorously irrigated in order to loosen any sand that was present. No significantly sized stones remained. We carefully reexamined the ureters have exited. There were no obstructing stones. There was sand present that we irrigated. Interpretation of Retrograde Ureteropyelography: Contrast was instilled in a retrograde fashion on the left hand side. There was chronic appearing fullness of the collecting system. There were no obvious filling defects. Unobstructed drainage was observed fluoroscopically. The patient's bladder was drained and cystoscope was withdrawn. Belladonna and Opium suppository was placed revealing a larger than 40 g prostate that is smooth, nonfunctional without any nodules. The patient was then uneventfully reversed from anesthesia and taken to the recovery room in stable condition. There were no complications during the procedure. He tolerated the procedure well. Exclusive postoperative instructions were given and we will follow the patient up in the office at which point in time we will plan on performing sonography. MD NITIN Mccurdy/ANDRES /[id number]
== END | disposition home or self-care (01) ==
LOC: OR 07:31
PROVIDERS: ATTEND Urology
DX: N20.0 Calculus of kidney (principal); Z46.6 Encounter for fitting and adjustment of urinary device; N35.912 Unspecified bulbous urethral stricture, male; I25.810 Atherosclerosis of coronary artery bypass graft(s) without angina pectoris; R25.1 Tremor, unspecified; E78.5 Hyperlipidemia, unspecified; E03.9 Hypothyroidism, unspecified; E11.9 Type 2 diabetes mellitus without complications; I51.7 Cardiomegaly; R03.0 Elevated blood-pressure reading, without diagnosis of hypertension; Z79.82 Long term (current) use of aspirin; Z95.1 Presence of aortocoronary bypass graft
CPT/HCPCS: 36415; 52352; 74420; 82948; 88300; C1758; J0696; J1100; J2001; J2405; J2704; Q9967; 74018

== ENCOUNTER 2018-07-27 15:21 | Emergency (ER) | payer MEDICARE ==
[~2018-07-27] VITALS: Ht 180.3 cm; Wt 90.3 kg
[~2018-07-27 15:21] MED LIST changes: -BELLADONNA/OPIUM 30 MG SUPP RC ONE; -CEFTRIAXONE SOD 1 GM/NS 50 ML 50 ML IV ONE; -DEXAMETHASONE SOD PHOS INJ 4 MG/ML VIAL ONE; -EPHEDRINE SULFATE INJ 50 MG/10 ML SYR ONE; -FENTANYL CITRATE/PF 100MCG/2 ML INJ ONE; -IOPAMIDOL 610MG/1ML 300 MG/ML VIAL IV ONE; -LIDOCAINE HCL 2% LOCAL INJ 5 ML SDV VIAL INJ ONE; -ONDANSETRON HCL INJ 2MG/ML 2ML 2 MG/ML VIAL ONE; -PROPOFOL IV EMULSION 10 MG/ML 20 ML VIAL ONE; -SEVOFLURANE INHAL SOLN 250 ML PEN BTL ONE
--- NOTE | 2018-07-27 18:09 | Diagnostic Imaging Report ---
EXAMINATION: Bilateral hands, 3 views each. CLINICAL HISTORY: Status post fall, hand pain. COMPARISON: None. . DISCUSSION: Right hand: There is normal bone mineralization. Negative for acute, displaced fracture or dislocation. Joint spaces are preserved. Well-corticated 2.5 mm bony fragment projecting in the ulnar aspect of the distal metaphysis of the third finger proximal phalanx likely represents ligamentous calcification. No cystic erosive changes.No soft tissue swelling. Left hand: There is normal bone mineralization. Negative for acute, displaced fracture or dislocation. Joint spaces are relatively preserved. Minimal ulnar subluxation of the fifth metacarpophalangeal joint. No cystic erosive changes.No soft tissue swelling. IMPRESSION: No acute abnormalities. The staff physician below has personally reviewed this exam on the date of dictation. Signed by: Dr. Garyson Lr M.D. on 07/27/2018 6:05 PM
--- NOTE | 2018-07-27 18:11 | Diagnostic Imaging Report ---
EXAMINATION: Bilateral Hip Films CLINICAL HISTORY:Status post fall, hip pain COMPARISON: None. DISCUSSION: Right: The bones are well-mineralized. No acute, displaced fractures or dislocations. Mild degenerative changes in the right hip joint. No gross soft tissue abnormalities. No osteolytic or osteoblastic lesions. Soft tissues are unremarkable. Left: The bones are well-mineralized. No acute, displaced fractures or dislocations. Mild degenerative changes in the left hip joint. No gross soft tissue abnormalities. No osteolytic or osteoblastic lesions. Soft tissues are unremarkable. AP pelvis shows vascular calcifications and pelvic phleboliths. No acute, displaced fracture or dislocation. IMPRESSION: 1. No acute abnormalities. Signed by: Dr. Grayson Lr M.D. on 07/27/2018 6:07 PM
== END 2018-07-27 20:05 | disposition home or self-care (01) ==
LOC: ER 15:21
DX: S70.01XA Contusion of right hip, initial encounter (principal); W01.0XXA Fall on same level from slipping, tripping and stumbling without subsequent striking against object, initial encounter; Y93.01 Activity, walking, marching and hiking; Y92.008 Other place in unspecified non-institutional (private) residence as the place of occurrence of the external cause
CPT/HCPCS: 73523; 99283

== ENCOUNTER → 2018-10-11 | Outpatient (CLI) | payer MEDICARE ==
[~2018-10-11] MED LIST changes: +TYLENOL WITH C1 EACH PO
--- NOTE | 2018-10-11 11:57 | Diagnostic Imaging Report ---
EXAM: CT Abdomen and Pelvis WITHOUT intravenous contrast INDICATION: Renal calculi COMPARISON: CT abdomen pelvis of 01/02/2018 TECHNIQUE: Abdomen and pelvis were scanned utilizing a multidetector helical scanner from the lung base to the pubic symphysis without administration of IV contrast. Coronal and sagittal reformations were obtained. IV CONTRAST: None ORAL CONTRAST: None COMPLICATIONS: None RADIATION DOSE: Total DLP: 578.9 mGy*cm Dose modulation, iterative reconstruction, and/or weight based adjustment of the mA/kV was utilized to reduce the radiation dose to as low as reasonably achievable. FINDINGS: LOWER THORAX: Bibasilar dependent subsegmental atelectasis. Patulous fluid containing distal esophagus. HEPATOBILIARY: No focal hepatic lesions. No biliary ductal dilatation. The gallbladder appears unremarkable. SPLEEN: No splenomegaly. PANCREAS: No focal masses or ductal dilatation. ADRENALS: No adrenal nodules. KIDNEYS/URETERS: Nonobstructive renal calculi measure up to 6 mm at the left renal upper pole, 7 mm at the left renal lower pole, and 1 mm at the right renal lower pole. Previously visualized left ureteral calculus is no longer seen. No hydronephrosis. PELVIC ORGANS/BLADDER: Unremarkable. PERITONEUM / RETROPERITONEUM: No free air or fluid. LYMPH NODES: No lymphadenopathy. VESSELS: Scattered atherosclerotic calcifications of the nonaneurysmal abdominal aorta and major branches. GI TRACT: Colonic diverticulosis. No CT evidence of diverticulitis. No abnormal bowel wall thickening. No bowel obstruction. Normal appendix. BONES AND SOFT TISSUES: Diffuse osteopenia. No acute osseous injury. No suspicious lytic or blastic lesions. Mild degenerative changes of the visualized spine. IMPRESSION: Non-obstructive 6mm left upper pole and 7mm left lower pole renal calculi. 1mm right lower pole non-obstructive calculus. No hydronephrosis. Signed by: Joey Merritt MD on 10/11/2018 11:54 AM
== END ==
LOC: CT 10:11
PROVIDERS: ATTEND Urology
DX: N20.0 Calculus of kidney (principal)
CPT/HCPCS: 74176

== ENCOUNTER 2018-10-13 05:46 | Inpatient (IN) | payer MEDICARE ==
[~2018-10-13] VITALS: Ht 177.8 cm; Wt 90.3 kg
[~2018-10-13 05:46] MED LIST changes: -TYLENOL WITH C1 EACH PO
--- NOTE | 2018-10-13 08:26 | Diagnostic Imaging Report ---
EXAMINATION: HIP RIGHT 2-3 VW (+/- PELVIS) INDICATION: Fall COMPARISON: None FINDINGS: 3 views of the right hip and pelvis demonstrate no acute fracture or dislocation. Alignment is anatomic. Moderate degenerative changes of both right and left hip joints with joint space narrowing and osteophyte formation. Degenerative changes of the lower lumbar spine. Phleboliths in the pelvis. Stool and air throughout the visualized colon. IMPRESSION: No acute osseous injury. Moderate degenerative changes of both hip joints. Signed by: Joey Merritt MD on 10/13/2018 8:22 AM
[2018-10-13 08:47] LABS: BASOPHILS % 0.1 % (0.0-1.0); EOSINOPHILS # (AUTO) 0.1 (0.0-0.4); EOSINOPHILS % 1.7 % (0.0-6.0); HEMATOCRIT 41.6 % (38.2-49.6); HEMOGLOBIN 13.9 g/dL (14.0-18.0); LYMPHOCYTES # (AUTO) 0.8 (1.0-3.2); LYMPHOCYTES % 10.8 % (18.0-39.1); MEAN CORPUSCULAR HEMOGLOBIN 29.3 pg (28-32); MEAN CORPUSCULAR HGB CONC 33.4 g/dL (31-35); MEAN CORPUSCULAR VOLUME 87.6 fL (81-99); MONOCYTES # (AUTO) 0.6 (0.2-0.8); MONOCYTES % 8.9 % (4.4-11.3); NEUTROPHILS # (AUTO) 5.5 (2.1-6.9); NEUTROPHILS % 78.1 % (38.7-80.0); PLATELET COUNT 150 x10e3/uL (140-360); RED BLOOD COUNT 4.75 x10e6/uL (4.3-5.7); RED CELL DISTRIBUTION WIDTH 12.8 % (11.7-14.4)
[2018-10-13 08:57] LABS: INR 0.95; PROTHROMBIN TIME 13.2 seconds (11.9-14.5)
[2018-10-13 08:58] LABS: PARTIAL THROMBOPLASTIN TIME 31.6 seconds (23.8-35.5)
--- NOTE | 2018-10-13 09:00 | NUR ---
Pt changed into a gown and cortisone cream applied to left shoulder blade for itch that he has on his back that he is taking the cortisone for.
[2018-10-13 09:09] LABS: ALANINE AMINOTRANSFERASE 14 IU/L (0-55); ALBUMIN 3.7 g/dL (3.5-5.0); ALBUMIN/GLOBULIN RATIO 1.1 (0.8-2.0); ALKALINE PHOSPHATASE 91 IU/L (40-150); ANION GAP 15.6 mmol/L (8-16); BLOOD UREA NITROGEN 14 mg/dL (7-26); BUN/CREATININE RATIO 13 (6-25); CALCIUM 9.3 mg/dL (8.4-10.2); CARBON DIOXIDE 27 mmol/L (22-29); CHLORIDE 100 mmol/L (98-107); CREATINE KINASE 195 IU/L (30-200); CREATININE, SERUM 1.09 mg/dL (0.72-1.25); EST GLOMERULAR FILTRATION RATE > 60 ML/MIN (60-); GLUCOSE 100 mg/dL (74-118); MAGNESIUM 2.4 MG/DL (1.3-2.1); POTASSIUM 3.6 mmol/L (3.5-5.1); SODIUM 139 mmol/L (136-145)
--- NOTE | 2018-10-13 09:10 | Diagnostic Imaging Report ---
EXAMINATION: CHEST SINGLE (PORTABLE) INDICATION: Fall, shortness of breath COMPARISON: None FINDINGS: LINES/TUBES:Sternotomy wires intact. LUNGS:Patient had positioning obscures evaluation of the left lung apex. The lungs are moderately inflated. No focal consolidation or pulmonary edema. PLEURA:No pleural effusion or pneumothorax. MEDIASTINUM:The cardiomediastinal silhouette appears normal in size and shape. BONES/SOFT TISSUES:No displaced rib fractures. ABDOMEN:No free air under the diaphragm. IMPRESSION: No evidence of acute traumatic injury to the thorax. No focal pneumonia or pulmonary edema. Signed by: Joey Merritt MD on 10/13/2018 9:06 AM
[2018-10-13 09:28] LABS: THYROID STIMULATING HORMONE 0.827 uIU/mL (0.350-4.940)
[2018-10-13 10:09] LABS: BILIRUBIN,URINE NEGATIVE (NEGATIVE); CLARITY,URINE CLEAR (CLEAR); COLOR,URINE YELLOW (YELLOW); KETONES,URINE NEGATIVE (NEGATIVE); LEUKOCYTE ESTERASE ,URINE NEGATIVE (NEGATIVE); NITRITE,URINE NEGATIVE (NEGATIVE); PROTEIN,URINE DIPSTICK NEGATIVE (NEGATIVE); URINE UROBILINOGEN 2 mg/dL (0.2 - 1)
[2018-10-13 10:31] LABS: BACTERIA,URINE FEW /HPF; EPITHELIAL CELLS,URINE RARE /LPF; RBC,URINE 0-5 /HPF (0-5); WBC,URINE (MAN) 0-5 /HPF (0-5)
[2018-10-13] MEDS ORDERED: FUROSEMIDE INJ 10 MG/ML 4 ML VIAL IV NR (11:15)
[2018-10-13] MEDS ORDERED: DEXTROSE 50% SYRINGE 50 ML IV PRN (11:15)
[2018-10-13] MEDS ORDERED: ONDANSETRON HCL INJ 2MG/ML 2ML 2 MG/ML VIAL IV PRN (11:15)
[2018-10-13] MEDS: INSULIN LISPRO 100 UNIT/1 ML 3ML VIAL SQ SCH ×3 (11:38→21:00)
[2018-10-13] MEDS ORDERED: MORPHINE SULFATE INJ 4 MG/ML INJ 1ML IV PRN ×2 (11:45→19:45)
[2018-10-13 13:48] VITALS: BP 134/75
--- NOTE | 2018-10-13 14:30 | NUR ---
Pt given turkey sandwich tray, tolerating well at this time, informed primary nurse JINA Méndez; will continue to monitor.
--- NOTE | 2018-10-13 15:37 | NUR ---
Report to JINA Cobos
--- NOTE | 2018-10-13 17:35 | NUR ---
pt arrived to room resp even and unlabored at this time, pt has no c/o pain when asked, pt was oriented to room and call light, call light in reach, bed in lowest position, rails up x2.
[2018-10-13] MEDS: FUROSEMIDE 40 MG TAB PO SCH (17:39)
[2018-10-13] MEDS ORDERED: HYDROCORTISONE 1% CREAM 30 GM TUBE TOP PRN (18:00)
[2018-10-13] MEDS ORDERED: DIPHENHYDRAMINE HCL 30 GM TUBE TOP PRN (18:00)
[2018-10-13] MEDS ORDERED: MORPHINE SULFATE 2 MG/ML SYR 1ML IV PRN (18:15)
[2018-10-13 19:05] LABS: CREATINE KINASE MB 2.7 ng/mL (0-5.0)
--- NOTE | 2018-10-13 19:26 | NUR ---
report given to oncoming nurse, pt stable at this time.
--- NOTE | 2018-10-13 19:35 | NUR ---
Patient received lying in bed. AAO x 3. Admission history obtained. Initial physical assessment performed. Patient had no complaints of pain. Respirations even and non-labored. Patient oriented to room, call light and plan of care. Fall precautions implemented. Patient instructed to call for assistance when needed. Call light within reach.
[2018-10-13 20:00] VITALS: BP 179/90
--- NOTE | 2018-10-13 20:45 | NUR ---
Dr. Oneal called to confirm being placed as a 'Consult' for patient. informed of elevated BP (179/90). New order received for Metoprolol Succinate 50 mg (PO) once.
[2018-10-13 21:00] VITALS: BP 179/90
[2018-10-13] MEDS ORDERED: NON-FORMULARY MEDICATION (Atorvastatin Calcium 80 MG) PO SCH (21:00)
[2018-10-13] MEDS ORDERED: METOPROLOL SUCCINATE 50 MG TAB XL PO ONE (21:00)
[2018-10-13] MEDS: ATORVASTATIN 40 MG TAB PO SCH (21:16)
[2018-10-14] VITALS (9 sets, daily range): BP systolic 111–158; BP diastolic 54–80
[2018-10-14 03:42] LABS: BASOPHILS % 0.2 % (0.0-1.0); EOSINOPHILS # (AUTO) 0.1 (0.0-0.4); EOSINOPHILS % 1.2 % (0.0-6.0); HEMATOCRIT 41.9 % (38.2-49.6); HEMOGLOBIN 13.9 g/dL (14.0-18.0); LYMPHOCYTES # (AUTO) 0.7 (1.0-3.2); LYMPHOCYTES % 9.1 % (18.0-39.1); MEAN CORPUSCULAR HEMOGLOBIN 29.1 pg (28-32); MEAN CORPUSCULAR HGB CONC 33.2 g/dL (31-35); MEAN CORPUSCULAR VOLUME 87.7 fL (81-99); MONOCYTES # (AUTO) 0.6 (0.2-0.8); MONOCYTES % 7.6 % (4.4-11.3); NEUTROPHILS # (AUTO) 6.6 (2.1-6.9); NEUTROPHILS % 81.5 % (38.7-80.0); PLATELET COUNT 136 x10e3/uL (140-360); RED BLOOD COUNT 4.78 x10e6/uL (4.3-5.7); RED CELL DISTRIBUTION WIDTH 12.7 % (11.7-14.4)
[2018-10-14 03:56] LABS: ALANINE AMINOTRANSFERASE 13 IU/L (0-55); ALBUMIN 3.4 g/dL (3.5-5.0); ALBUMIN/GLOBULIN RATIO 1.1 (0.8-2.0); ALKALINE PHOSPHATASE 91 IU/L (40-150); ANION GAP 12.7 mmol/L (8-16); BLOOD UREA NITROGEN 15 mg/dL (7-26); BUN/CREATININE RATIO 16 (6-25); CARBON DIOXIDE 28 mmol/L (22-29); CHLORIDE 101 mmol/L (98-107); CREATININE, SERUM 0.91 mg/dL (0.72-1.25); EST GLOMERULAR FILTRATION RATE > 60 ML/MIN (60-); GLUCOSE 118 mg/dL (74-118); POTASSIUM 3.7 mmol/L (3.5-5.1); SODIUM 138 mmol/L (136-145)
[2018-10-14 04:27] LABS: CREATINE KINASE 111 IU/L (30-200)
[2018-10-14] MEDS ORDERED: TYLENOL WITH C1 EACH PO (04:40)
[2018-10-14] MEDS: FUROSEMIDE 40 MG TAB PO SCH ×2 (05:46→17:22)
--- NOTE | 2018-10-14 07:00 | NUR ---
Patient resting comfortably . Walking rounds done. Shift report given to oncoming nurse.
--- NOTE | 2018-10-14 07:00 | NUR ---
BEDSIDE SHIFT REPORT RECEIVED FROM THE ATTENDANT SALES RN. PT DENIES NEEDS AT THIS TIME. BED IS AT THE LOWEST POSITION AND LOCKED. BED ALARM IS ON. INSTRUCTED PT TO USE CALL LIGHT FOR ANY NEEDS.
[2018-10-14] MEDS: INSULIN LISPRO 100 UNIT/1 ML 3ML VIAL SQ SCH ×4 (07:30→21:10)
[2018-10-14 07:43] LABS: LYMPHOCYTES % (MANUAL) 10 % (19-48); MONOCYTES % (MANUAL) 8 % (3.4-9.0); NEUTROPHILS % (MANUAL) 82 % (40-74); PLATELET ESTIMATE SLIGHTLY DECREASED; PLATELET MORPHOLOGY COMMENT NORMAL; RBC MORPHOLOGY COMMENT NORMAL
[2018-10-14] MEDS: FAMOTIDINE 20 MG TAB PO SCH ×2 (08:15→17:22)
[2018-10-14] MEDS: LINAGLIPTIN 5 MG PO SCH (08:57)
[2018-10-14] MEDS: ASPIRIN 325 MG TAB PO SCH (08:58)
[2018-10-14] MEDS: DIPHENHYDRAMINE HCL 25 MG CAP PO SCH (08:59)
[2018-10-14] MEDS: DOCUSATE SODIUM 100 MG CAP PO SCH ×2 (08:59→17:22)
[2018-10-14] MEDS: TAMSULOSIN HCL 0.4 MG CAP PO SCH (09:00)
[2018-10-14] MEDS: EZETIMIBE 10 MG TAB PO SCH (09:00)
[2018-10-14] MEDS ORDERED: FUROSEMIDE 20 MG TAB PO SCH (09:00)
[2018-10-14] MEDS: OXYBUTYNIN CHLORIDE 5 MG TAB PO SCH (09:00)
[2018-10-14] MEDS ORDERED: ASPIRIN 81 MG ENTERIC COATED PO SCH (09:00)
[2018-10-14] MEDS: POTASSIUM CHLORIDE 10MEQ EA PO SCH (09:01)
[2018-10-14] MEDS: METOPROLOL SUCCINATE 50 MG TAB XL PO SCH (09:01)
--- NOTE | 2018-10-14 10:00 | NUR ---
INFORMED PT REGARDING PT STATUS AND THE NEED FOR EVALUATION.
--- NOTE | 2018-10-14 10:34 | NUR ---
EDUCATED ABOUT HALL, SIGNED, FILED IN CHART, WITH COPY LEFT WITH FAMILY AT BEDSIDE.
--- NOTE | 2018-10-14 12:00 | NUR ---
PT LOOKS CONFUSED AND INFORMED DARÍO ARMENTA REGARDING PT STATUS.
--- NOTE | 2018-10-14 13:26 | NUR ---
Informed PT in barrier rounds that pt's discharge is pending their recommendations. Informed that pt is in observation status.
--- NOTE | 2018-10-14 14:00 | NUR ---
PT AT BEDSIDE TO EVALUATE THE PT.
--- NOTE | 2018-10-14 14:45 | NUR ---
RENAL NURSE AT BEDSIDE. PT CAREGIVER VOICED CONCERN REGARDING PT CONFUSED STATUS. INFORMED THE SAME TO DARÍO ARMENTA
--- NOTE | 2018-10-14 15:57 | NUR ---
FAXED CLINICALS TO [facility]
[2018-10-14 16:35] LABS: CREATINE KINASE MB 1.8 ng/mL (0-5.0)
--- NOTE | 2018-10-14 19:00 | NUR ---
BEDSIDE SHIFT REPORT GIVEN TO THE LEARNING AND DEVELOPMENT ADMINISTRATOR RN. PT DENIES NEEDS AT THIS TIME.
--- NOTE | 2018-10-14 19:10 | NUR ---
URINE CULTURE GIVEN TO THE LAB
--- NOTE | 2018-10-14 19:48 | Diagnostic Imaging Report ---
EXAMINATION: Head CT without contrast. HISTORY:Confusion. COMPARISON:CT head from 02/06/2018. TECHNIQUE: Multidetector axial images were obtained from the foramen magnum to the vertex without contrast. The images were reconstructed using brain and bone algorithms. Thin section brain images were reformatted into coronal and sagittal planes. Dose modulation, iterative reconstruction, and/or weight based adjustment of the mA/kV was utilized to reduce the radiation dose to as low as reasonably achievable. Intravenous contrast: None IMAGE QUALITY: Suboptimal evaluation due to motion artifacts. FINDINGS: Skull/scalp: No lytic or blastic. lesions. No surgical changes. Parenchyma: Nonspecific few, scattered supratentorial white matter patchy hypodensity are likely related to small vessel ischemic changes. 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 No acute hemorrhage, mass or acute major vascular territorial infarct. Arteries: No density suggestive of thrombosis. Atherosclerotic calcification in bilateral carotid siphon and V4 segment of vertebral arteries. Dural sinuses: No abnormal density suggestive of thrombosis. Ventricles: No hydrocephalus or displacement. Mild compensated dilatation due to volume loss. Extra-axial spaces: No abnormal density. Brain volume: Generalized age-related cerebral volume loss. Craniocervical junction: No mass, Chiari malformation, or basilar invagination. Sella: No mass. Paranasal/mastoid sinuses: Small polyp/retention cyst in right maxillary sinus. IMPRESSION: Suboptimal evaluation due to motion artifacts, despite the limitation no gross acute intracranial abnormality. Mild supratentorial white matter microvascular ischemic changes. Generalized age-related cerebral volume loss. Signed by: Dr. Consuelo Schroeder M.D. on 10/14/2018 7:45 PM
[2018-10-14 20:02] LABS: BILIRUBIN,URINE NEGATIVE (NEGATIVE); CLARITY,URINE SL CLOUDY (CLEAR); COLOR,URINE YELLOW (YELLOW); KETONES,URINE NEGATIVE (NEGATIVE); LEUKOCYTE ESTERASE ,URINE NEGATIVE (NEGATIVE); NITRITE,URINE NEGATIVE (NEGATIVE); PROTEIN,URINE DIPSTICK NEGATIVE (NEGATIVE); URINE UROBILINOGEN 1 mg/dL (0.2 - 1)
--- NOTE | 2018-10-14 20:18 | NUR ---
Seen by Jah Garcia covering for Dr. Oneal. New order for Bilateral Carotid Doppler received and suggested to have neuro consult if ok with attending. notified of CT scan result and Project Management Director suggestion for Neuro consult. New orders received.
[2018-10-14 20:24] LABS: EPITHELIAL CELLS,URINE RARE /LPF
[2018-10-14 20:25] LABS: AMORPHOUS SEDIMENT,URINE RARE (FEW)
--- NOTE | 2018-10-14 20:25 | NUR ---
Message left via voicemail for Dr. Lemus regarding this consultation.
[2018-10-14] MEDS: ATORVASTATIN 40 MG TAB PO SCH (21:09)
[2018-10-15] VITALS (7 sets, daily range): BP systolic 99–166; BP diastolic 56–77
--- NOTE | 2018-10-15 01:45 | Consultation ---
DATE OF CONSULTATION: 10/14/2018 Cardiology Consultation HISTORY OF PRESENT ILLNESS: The patient is an 83-year-old gentleman with several comorbidities including coronary artery disease, status post CABG; hypertension; diabetes; hyperlipidemia; and kidney stones, who initially presented after a fall and hip injury. The patient was scheduled to go home earlier this morning, however, he was noted to be altered by family and nursing staff, so discharge was held. The patient is unable to provide detailed history and history was obtained from care trainer at bedside. She reports the patient has never behaved in this manner and is still confused and also at present where he is grabbing and hallucinating; grabbing at things in the air and speaking incoherently. Unable to assess if the patient has any symptoms of chest pain or shortness of breath. The patient is unable to follow commands or provide any additional history at this time. PAST MEDICAL HISTORY: 1. Significant for coronary artery disease, status post CABG 3 years ago. 2. Hypertension. 3. Diabetes. 4. Hyperlipidemia. 5. Kidney stones. PAST SURGICAL HISTORY: Coronary artery bypass 3 years ago. ALLERGIES: NO KNOWN DRUG ALLERGIES. MEDICATIONS: Cardiac mediations include; 1. Lasix 40 mg. 2. Potassium chloride 20 mEq daily. 3. Metoprolol succinate 50 mg daily. 4. Zetia 10 mg daily. 5. Aspirin 325 mg daily. 6. Lipitor 80 mg q.h.s. SOCIAL HISTORY: Unable to obtain. FAMILY HISTORY: Noncontributory. OBJECTIVE FINDINGS: VITAL SIGNS: Temperature 98.1, heart rate 68, blood pressure is 138/61, respirations 16, and he is satting 95% on room air. GENERAL: The patient is mildly agitated and confused. HEENT: EOMI. PERRLA. Moist mucous membranes. NECK: Flat neck veins. CARDIOVASCULAR: Regular rate and rhythm with occasional ectopy. Normal S1 and S2. LUNGS: Shallow respirations otherwise clear. ABDOMEN: Soft, nontender, and nondistended. Positive bowel sounds. EXTREMITIES: Trace lower extremity edema. SKIN: Clean, dry, and intact. LABORATORY DATA: First set of troponins are negative. Hemoglobin is 13.9, white count is 8.15, and platelets are 136. Echo completed showing preserved ejection fraction with EF of 60% to 65% with impaired relaxation and mild concentric hypertrophy. Arslan CT showed that it was a suboptimal exam with significant motion artifact, however, no acute intracranial abnormality noted. Mild supratentorial white matter microvascular ischemic changes was seen along with generalized age related cerebral volume loss. ASSESSMENT AND PLAN: 1. The patient is an 83-year-old man with acute altered mental status. 2. Possible transient ischemic attack versus stroke versus metabolic encephalopathy. 3. Coronary artery disease, status post coronary artery bypass graft. 4. Hypertension. 5. Diabetes. 6. Hyperlipidemia. 7. Kidney stones. RECOMMENDATIONS: 1. Consider Neurology consult for possible MRI if indicated. We will obtain bilateral carotid dopplers to exclude obstructive disease. Check labs in the a.m. to exclude metabolic derangements. 2. Echocardiogram completed showing preserved LVEF and mild concentric hypertrophy. 3. Continue supportive care for fall and hip pain noted on admission. 4. DVT prophylaxis. Further recommendations to follow as clinical course progresses. Thank you for consult. We will continue to follow the patient with you. Cross cover for Dr. Ras Perales. MD WILFRID Miranda/ANDRES /[id number]
[2018-10-15] MEDS: FUROSEMIDE 40 MG TAB PO SCH ×2 (05:43→18:00)
--- NOTE | 2018-10-15 06:31 | NUR ---
Dr. Lemus Notified that the consultation has been cancelled by the attending.
[2018-10-15 06:42] LABS: BASOPHILS % 0.3 % (0.0-1.0); EOSINOPHILS # (AUTO) 0.2 (0.0-0.4); EOSINOPHILS % 2.2 % (0.0-6.0); HEMATOCRIT 40.1 % (38.2-49.6); HEMOGLOBIN 13.6 g/dL (14.0-18.0); LYMPHOCYTES # (AUTO) 0.8 (1.0-3.2); LYMPHOCYTES % 10.3 % (18.0-39.1); MEAN CORPUSCULAR HEMOGLOBIN 29.8 pg (28-32); MEAN CORPUSCULAR HGB CONC 33.9 g/dL (31-35); MEAN CORPUSCULAR VOLUME 87.7 fL (81-99); MONOCYTES # (AUTO) 0.7 (0.2-0.8); MONOCYTES % 9.6 % (4.4-11.3); NEUTROPHILS # (AUTO) 5.6 (2.1-6.9); NEUTROPHILS % 77.2 % (38.7-80.0); PLATELET COUNT 139 x10e3/uL (140-360); RED BLOOD COUNT 4.57 x10e6/uL (4.3-5.7); RED CELL DISTRIBUTION WIDTH 12.7 % (11.7-14.4)
[2018-10-15 06:54] LABS: ANION GAP 12.6 mmol/L (8-16); BLOOD UREA NITROGEN 17 mg/dL (7-26); BUN/CREATININE RATIO 15 (6-25); CALCIUM 9.2 mg/dL (8.4-10.2); CARBON DIOXIDE 31 mmol/L (22-29); CHLORIDE 99 mmol/L (98-107); CREATININE, SERUM 1.15 mg/dL (0.72-1.25); EST GLOMERULAR FILTRATION RATE > 60 ML/MIN (60-); GLUCOSE 130 mg/dL (74-118); POTASSIUM 3.6 mmol/L (3.5-5.1); SODIUM 139 mmol/L (136-145)
[2018-10-15 06:57] LABS: CHOL/HDL RATIO 3.6 (3.9-4.7)
--- NOTE | 2018-10-15 07:00 | NUR ---
BEDSIDE SHIFT REPORT RECEIVED FROM THE RECORD LABEL INTERNSHIP RN. BED IS AT THE LOWEST POSITION AND LOCKED. BED ALARM IS ON. FALL SAFETY PRECAUTIONS IMPLEMENTED. EDUCATED PT ABOUT FALL PRECAUTIONS. FALL PREVENTION YELLOW SOCKS ARE ON WITH PT . CALL LIGHT WITH IN EASY REACH. INSTRUCTED PT TO USE CALL LIGHT FOR ANY NEEDS. PT VERBALIZED UNDERSTANDING. PT DENIES NEEDS AT THIS TIME.
[2018-10-15 07:01] LABS: B-TYPE NATRIURETIC PEPTIDE2 83.1 pg/mL (0-100)
[2018-10-15] MEDS: INSULIN LISPRO 100 UNIT/1 ML 3ML VIAL SQ SCH ×4 (08:15→21:00)
[2018-10-15] MEDS: FAMOTIDINE 20 MG TAB PO SCH ×2 (08:20→17:30)
[2018-10-15] MEDS: LINAGLIPTIN 5 MG PO SCH (09:00)
[2018-10-15] MEDS: ASPIRIN 325 MG TAB PO SCH (09:06)
[2018-10-15] MEDS: DIPHENHYDRAMINE HCL 25 MG CAP PO SCH (09:06)
[2018-10-15] MEDS: TAMSULOSIN HCL 0.4 MG CAP PO SCH (09:07)
[2018-10-15] MEDS: DOCUSATE SODIUM 100 MG CAP PO SCH ×2 (09:07→18:00)
[2018-10-15] MEDS: OXYBUTYNIN CHLORIDE 5 MG TAB PO SCH (09:07)
[2018-10-15] MEDS: METOPROLOL SUCCINATE 50 MG TAB XL PO SCH (09:09)
[2018-10-15] MEDS: EZETIMIBE 10 MG TAB PO SCH (09:09)
[2018-10-15] MEDS: POTASSIUM CHLORIDE 10MEQ EA PO SCH (09:10)
--- NOTE | 2018-10-15 12:30 | NUR ---
DR. KIDD AT BEDSIDE. PT FAMILY VOICED CONCERN OF PT MENTAL STATUS. INFORMED THE SAME TO DARÍO ARMENTA. NEW ORDER FOR MRI BRAIN RECEIVED.
--- NOTE | 2018-10-15 13:17 | Progress Note ---
DATE: 10/15/2018 Cardiology Progress Note SUBJECTIVE: The patient's mentation is much improved today. Caregiver is at bedside and believes that morphine caused the patient's confusion and increased agitation, however, the patient is not completely back to baseline. OBJECTIVE: VITAL SIGNS: Temperature 95.8, heart rate 81, blood pressure 166/77, and respirations 18. GENERAL: No acute distress. The patient is calm and follows commands. HEENT: EOMI. PERRLA. Moist mucous membranes. NECK: Flat neck veins. CARDIOVASCULAR: Regular rate and rhythm with occasional ectopy. Normal S1 and S2. LUNGS: Shallow inspirations, otherwise clear. ABDOMEN: Soft, nontender, and nondistended. Positive bowel sounds. EXTREMITIES: Trace lower extremity edema. SKIN: Clean, dry, and intact. LABORATORY DATA: Hemoglobin is 13.6. Echocardiogram completed showing preserved ejection fraction with EF of 60% to 65% with impaired relaxation and mild concentric hypertrophy. Brain CT showed that it was a suboptimal exam with significant motion artifact, however, no acute intracranial abnormality was noted. Mild supratentorial white matter microvascular ischemic change was seen along with generalized age-related cerebral volume loss. ASSESSMENT AND PLAN: 83-year-old man with acute altered mental status. 1. Possible transient ischemic attack versus stroke versus metabolic encephalopathy versus adverse reaction to morphine. 2. Coronary artery disease, status post coronary artery bypass graft. 3. Hypertension. 4. Diabetes. 5. Hyperlipidemia. 6. Kidney stones. RECOMMENDATIONS: 1. Consider neurology consult for possible MRI if indicated. Avoid morphine and continue to monitor mentation. Carotid Dopplers are pending to exclude obstructive disease. 2. Echocardiogram completed showing preserved LVEF and mild concentric hypertrophy. Continue current medications. 3. Continue supportive care for fall and hip pain noted on admission. 4. DVT prophylaxis. 5. We will continue to follow patient with you. Cross cover for Dr. Ras Oneal. MD WILFRID Miranda/ANDRES /[id number]
--- NOTE | 2018-10-15 14:44 | Diagnostic Imaging Report ---
MRI BRAIN WO HISTORY: Altered mental status COMPARISON: Head CT 10/14/2018 TECHNIQUE: Axial T2, multiplanar T1, axial T2/FLAIR, axial gradient echo (or susceptibility weighted), and axial diffusion weighted MR images of the brain were obtained without contrast. Motion, alias, and noise artifacts obscure some details. DISCUSSION: Scalp/bone marrow: Unremarkable. Brain sulci: Prominent. Ventricles: Compensatory dilatation. Extra-axial spaces: No masses or fluid collections. Parenchyma: Scattered T2/FLAIR hyperintense foci throughout the supratentorial white matter are likely chronic microvascular ischemic changes. Otherwise, no mass, hemorrhage, or acute vascular insults. Vessels: Normal flow voids in major arteries and veins. Sellar/Suprasellar region: No abnormalities. Craniocervical junction: No abnormalities. Incidental findings: The right ocular lens is thinned. IMPRESSION: 1. No acute intracranial abnormalities. 2. Mild supratentorial chronic microvascular ischemic change. 3. Mild generalized cerebral volume loss. Signed by: Dr. Braeden Franco M.D. on 10/15/2018 2:40 PM
--- NOTE | 2018-10-15 19:00 | NUR ---
BEDSIDE SHIFT REPORT GIVEN TO THE FOREIGN LANGUAGE TEACHER RN. PT FAMILY AT BEDSIDE. PT DENIED FURTHER NEEDS.
[2018-10-15] MEDS: ATORVASTATIN 40 MG TAB PO SCH (22:15)
[2018-10-16] VITALS (7 sets, daily range): BP systolic 94–135; BP diastolic 57–62
[2018-10-16 03:34] LABS: BASOPHILS % 0.3 % (0.0-1.0); EOSINOPHILS # (AUTO) 0.2 (0.0-0.4); EOSINOPHILS % 3.4 % (0.0-6.0); HEMATOCRIT 38.7 % (38.2-49.6); HEMOGLOBIN 13.1 g/dL (14.0-18.0); LYMPHOCYTES # (AUTO) 0.7 (1.0-3.2); LYMPHOCYTES % 9.8 % (18.0-39.1); MEAN CORPUSCULAR HEMOGLOBIN 29.2 pg (28-32); MEAN CORPUSCULAR HGB CONC 33.9 g/dL (31-35); MEAN CORPUSCULAR VOLUME 86.4 fL (81-99); MONOCYTES # (AUTO) 0.6 (0.2-0.8); MONOCYTES % 8.8 % (4.4-11.3); NEUTROPHILS # (AUTO) 5.5 (2.1-6.9); NEUTROPHILS % 77.3 % (38.7-80.0); PLATELET COUNT 135 x10e3/uL (140-360); RED BLOOD COUNT 4.48 x10e6/uL (4.3-5.7); RED CELL DISTRIBUTION WIDTH 12.8 % (11.7-14.4)
[2018-10-16 03:51] LABS: ANION GAP 13.8 mmol/L (8-16); BLOOD UREA NITROGEN 22 mg/dL (7-26); BUN/CREATININE RATIO 22 (6-25); CALCIUM 8.9 mg/dL (8.4-10.2); CARBON DIOXIDE 28 mmol/L (22-29); CHLORIDE 101 mmol/L (98-107); CREATININE, SERUM 1.01 mg/dL (0.72-1.25); EST GLOMERULAR FILTRATION RATE > 60 ML/MIN (60-); GLUCOSE 124 mg/dL (74-118); POTASSIUM 3.8 mmol/L (3.5-5.1); SODIUM 139 mmol/L (136-145)
[2018-10-16] MEDS ORDERED: ACETAMINOPHEN/CODEINE 300MG - 30MG TAB PO PRN (05:00)
[2018-10-16] MEDS: FUROSEMIDE 40 MG TAB PO SCH ×2 (05:22→17:26)
--- NOTE | 2018-10-16 07:00 | NUR ---
RCD PT AT BED PT IS ALERT AND ORIENTED RESTING ON BED NO SIGNS OF ANY DISTRESS NOTED IV PATENT BY SALINE FLUSH BED LOW AND LOCKED CALL LIGHT IN REACH
[2018-10-16] MEDS: INSULIN LISPRO 100 UNIT/1 ML 3ML VIAL SQ SCH ×4 (07:30→21:00)
[2018-10-16] MEDS: FAMOTIDINE 20 MG TAB PO SCH ×2 (07:30→16:30)
[2018-10-16] MEDS: EZETIMIBE 10 MG TAB PO SCH (09:00)
[2018-10-16] MEDS: DOCUSATE SODIUM 100 MG CAP PO SCH ×2 (09:00→17:00)
[2018-10-16] MEDS: LINAGLIPTIN 5 MG PO SCH (09:00)
[2018-10-16] MEDS: TAMSULOSIN HCL 0.4 MG CAP PO SCH (09:00)
[2018-10-16] MEDS: OXYBUTYNIN CHLORIDE 5 MG TAB PO SCH (09:00)
[2018-10-16] MEDS: ASPIRIN 325 MG TAB PO SCH (09:00)
[2018-10-16] MEDS: METOPROLOL SUCCINATE 50 MG TAB XL PO SCH (09:00)
[2018-10-16] MEDS: POTASSIUM CHLORIDE 10MEQ EA PO SCH (09:00)
--- NOTE | 2018-10-16 12:27 | Progress Note ---
DATE: 10/16/2018 Cardiology Progress Note SUBJECTIVE: The patient was stable overnight and his mentation continues to improve. OBJECTIVE: VITAL SIGNS: Temperature is 98.7, heart rate 69, blood pressure 103/69, and respirations 18. GENERAL: No acute distress. The patient is calm. HEENT: EOMI. PERRLA. Moist mucous membranes. NECK: Flat neck veins. CARDIOVASCULAR: Regular rate and rhythm with occasional ectopy. Normal S1, S2. LUNGS: Shallow inspirations, otherwise clear. ABDOMEN: Soft, nontender, nondistended. Positive bowel sounds. EXTREMITIES: Trace lower extremity edema. Skin: Clean, dry, and intact. LABORATORY DATA: Hemoglobin is 13.1. Potassium is 3.8. Echocardiogram completed showing ejection fraction of 60-65% with impaired relaxation and mild concentric hypertrophy. Carotid Doppler ultrasound showed moderate stenosis in the right carotid bulb around 50-60%. MRI of the brain was completed showing no acute intracranial abnormalities. No acute abnormalities. ASSESSMENT: 1. An 83-year-old man with acute altered mental status, now improved. 2. Possible transient ischemic attack versus metabolic encephalopathy due to adverse reaction to morphine. 3. Coronary artery disease status post bypass graft. 4. Hypertension. 5. Diabetes. 6. Hyperlipidemia. 7. Kidney stones. RECOMMENDATIONS: 1. Continue supportive care. Carotid Dopplers completed showing moderate disease in the right carotid bulb. Recommend continue medical management. 2. Blood pressure and heart rate are stable. Continue current medications. 3. Continue supportive care for fall and hip pain noted on admission. 4. DVT prophylaxis. We will continue to follow the patient with you. Cross cover for Dr. Ras Perales. MD WILFRID Miranda/ANDRES /[id number]
[2018-10-16 12:36] LABS: EOSINOPHILS % (MANUAL) 3 % (0-7); NEUTROPHILS % (MANUAL) 79 % (40-74)
[2018-10-16 12:37] LABS: LYMPHOCYTES % (MANUAL) 9 % (19-48); MONOCYTES % (MANUAL) 9 % (3.4-9.0)
[2018-10-16 12:39] LABS: PLATELET ESTIMATE SLIGHTLY DECREASED; PLATELET MORPHOLOGY COMMENT NORMAL
[2018-10-16 12:40] LABS: RBC MORPHOLOGY COMMENT NORMAL
--- NOTE | 2018-10-16 13:04 | NUR ---
AC TO DR BRADLEY PATIENT CAN GO HOME
[2018-10-16] MEDS ORDERED: SODIUM CHLORIDE 0.9% 100 ML 100 ML ONE (15:40)
[2018-10-16] MEDS ORDERED: IOPAMIDOL 370 MG/ML 200 ML INFUS..BTL INJ ONE (15:40)
--- NOTE | 2018-10-16 16:16 | Diagnostic Imaging Report ---
CTA NECK HISTORY: Abnormal carotid Doppler COMPARISON: Carotid ultrasound 10/15/2018 and MRI of the brain 10/15/2018 TECHNIQUE: CTA of the neck was performed with intravenous iodine based contrast. Coronal, sagittal, 3-D, and oblique maximum intensity projection reformations were created. One or more of the following dose reduction techniques were used: Automated exposure control, adjustment of the mA and/or kV according to patient size, and/or utilization of iterative reconstruction technique. DISCUSSION: If present, any cervical carotid stenosis will be measured as a percentage relative to the [place] artery distal to the stenosis (NASCET). CERVICAL CTA: Mild calcifications are seen in the aortic arch and proximal great vessels Right Carotid: Moderate calcified plaque at the right carotid bulb causes 50-69% focal stenosis in the proximal right internal carotid artery. Mild calcified plaque in the upper cervical right internal carotid artery does not cause significant stenosis. Left Carotid: Mild to moderate calcified plaque at the left carotid bulb causes less than 50% focal stenosis in the proximal left internal carotid artery. Mild calcified plaque in the upper cervical left internal carotid artery also does not cause significant stenosis. Right vertebral artery: Mild calcified plaque at the right vertebral artery ostium causes at least mild focal stenosis. Left vertebral artery: Mild calcified plaque at the left vertebral artery ostium causes at least mild focal stenosis. The intracranial arterial vasculature is partially visualized. Mild bilateral carotid siphon calcifications are present without significant stenosis. Additional findings: Right ocular lens replacement. CABG changes and coronary artery calcifications are partially visualized. There are mild degenerative changes throughout the spine. Mild bilateral maxillary sinus mucosal thickening is seen. IMPRESSION: 1. Approximately 50-69% focal stenosis in the proximal right internal carotid artery due to calcified plaque. 2. Mild to moderate scattered calcified plaque in the left carotid bulb and bilateral upper cervical internal carotid arteries without significant stenosis. 3. At least mild focal stenosis at the bilateral vertebral artery ostia due to mild calcified plaque. 4. No other cervical CTA abnormalities. Signed by: Dr. Braeden Franco M.D. on 10/16/2018 4:13 PM
--- NOTE | 2018-10-16 17:04 | Consultation ---
DATE OF CONSULTATION: 10/16/2018 Neurology Consult Note HISTORY OF PRESENT ILLNESS: Mr. Leiva is an 83-year-old man with past medical history significant for hypertension, hyperlipidemia, diabetes mellitus, coronary artery disease with prior myocardial infarction, and chronic low back and right hip pain, admitted to [facility] on October 13, 2018, status post fall. A Neurology consultation is requested for evaluation and treatment of encephalopathy. On the morning of October 13, 2018, the patient tripped over his dogs while walking to the bathroom. Mr. Leiva reports falling forward and landing on his right side. He did not hit his head. There was no loss of consciousness. Following his fall, the patient experienced [id number]-[id number] right hip pain. Emergency Medical Services were notified and Mr. Leiva was brought to the emergency center at [facility] for further evaluation of his symptoms. Upon arrival in the emergency center, the patient was afebrile with a blood pressure of 122/73 and a pulse of 71 beats per minute. The patient's neurological examination was documented as being nonfocal. Specifically, Mr. Leiva was noted to be oriented to person, place, and time. While in the emergency center, x-rays of the patient's right hip were performed. There is no evidence of acute osseous injury. Mr. Leiva was admitted to [facility] for further evaluation and treatment of pain status post fall. While hospitalized, the patient received morphine 1 mg intravenously for treatment of his pain. This medication was given on October 13, 2018. Following treatment with this medication, Mr. Leiva became confused and experienced visual hallucinations. Treatment with morphine was subsequently discontinued, and the patient's confusion and visual hallucinations resolved over a period of approximately 48 hours. At present, neither the patient nor family member, who is at the bedside endorsed confusion or hallucinations. REVIEW OF SYSTEMS: Pain in the right hip ([id number]), confusion, low back pain (chronic), fall. Otherwise, a 12-point review of systems is negative. PAST MEDICAL HISTORY: Hypertension, hyperlipidemia, diabetes mellitus, coronary artery disease with prior myocardial infarction, kidney stones, chronic low back and right hip pain. PAST SURGICAL HISTORY: CABG, lithotripsy x4, left eye surgery (remote). PAST HOSPITALIZATIONS: Surgeries/procedures as listed, multiple hospitalizations for nephrolithiasis and falls. FAMILY MEDICAL HISTORY: Mr. Leiva's father is from coronary artery disease with a myocardial infarction. His mother from natural causes. The patient has one brother, who is alive. He has a history of coronary artery disease with a myocardial infarction. Mr. Leiva's brother is status post pacemaker placement. Mr. Leiva has three children, two sons and one daughter, all of whom are alive and healthy. SOCIAL HISTORY: Mr. Leiva is . He is retired. The patient does not report current or prior tobacco or recreational drug use. He endorses rare alcohol use. HOME MEDICATIONS: Tylenol with codeine 300 mg by mouth every 8 hours, aspirin 325 mg by mouth daily, atorvastatin 80 mg by mouth at bedtime daily, vitamin D3 of 2000 units by mouth daily, Benadryl 25 mg by mouth daily, Colace 100 mg by mouth twice daily, Zetia 10 mg by mouth daily, Lasix 20 mg by mouth daily, linagliptin 5 mg by mouth daily, metoprolol 50 mg by mouth daily, multivitamin 1 tablet by mouth daily, oxybutynin 15 mg by mouth daily, potassium chloride 20 mEq by mouth daily, tamsulosin 0.4 mg by mouth daily, fish oil gummies 2 gummies by mouth daily, fluocinonide 15 g cream 5 mg topically daily. HOSPITAL MEDICATIONS: Tylenol No. 3, aspirin, Lipitor, Benadryl, Colace, Zetia, Pepcid, Lasix, hydrocortisone cream, sliding scale insulin, linagliptin, Zofran, oxybutynin, potassium chloride, and tamsulosin. ALLERGIES: NO KNOWN DRUG ALLERGIES. NO KNOWN FOOD ALLERGIES. NO KNOWN ALLERGIES TO LATEX. NO KNOWN ALLERGIES TO IODINE OR OTHER CONTRAST MATERIALS. PHYSICAL EXAMINATION: VITAL SIGNS: Height 70 inches, weight 203 pounds, BMI 29.1 kg/m2, blood pressure 134/75 mmHg, pulse 69 beats per minute, respiratory rate 20 breaths per minute, and oxygen saturation 97% on room air. GENERAL: The patient is awake and alert, does not appear distressed. Overweight. HEENT: Normocephalic, atraumatic. The left pupil is cloudy. The right pupil is round and reactive to light. Moist mucous membranes. NECK: Supple. No appreciable thyromegaly. No appreciable carotid bruits. CARDIOVASCULAR: S1, S2, regular rate and rhythm. No murmurs, rubs, or gallops. RESPIRATORY: Clear to auscultation bilaterally. No wheezes, rhonchi, or rales. EXTREMITIES: The skin is warm and dry. No clubbing or cyanosis. Trace pretibial pitting edema. The posterior tibial and dorsalis pedis pulses are 1+ and symmetric. SKIN: No rashes or lesions. NEUROLOGIC: Memory/Attention: The patient is awake and alert, oriented to person, place (hospital, city, state), time (date, day of the week, month, season, year), and situation. Cranial Nerves: Cranial nerve I - not tested. Cranial nerve II, III, IV, and - the left pupil is cloudy. The right pupil is round and reactive to light (from 4 mm to 2 mm). Extraocular movements intact. No nystagmus. Cranial nerve V - sensation to light touch is intact in the bilateral V1 through V3 distributions. Strength in the temporalis and masseter muscles are within normal limits. Cranial nerve VII - the face is symmetric as are all facial movements. Strength is within normal limits. Cranial nerve VIII - hearing is diminished to finger rub bilaterally. Cranial nerve IX, X - the soft palate elevates equally and symmetrically. Cranial nerve XI - normal strength of the bilateral sternocleidomastoid and trapezius muscles. Cranial nerve XII - the tongue protrudes midline and moves symmetrically from [id number]. Strength: Bulk is normal. Strength is 5/5 in the bilateral deltoids, biceps, triceps, wrist flexors and extensors, finger flexors and extensors, intrinsic hand muscles, hip flexors, knee flexors and extensors, ankle dorsiflexion and plantar flexion, and intrinsic foot muscles. Tone is normal. DTRs: Deep tendon reflexes are 1+ and symmetric at the triceps and biceps. Deep tendon reflexes are trace and symmetric at the brachioradialis. Deep tendon reflexes are absent and symmetric at the patellas and Achilles. Plantar responses are flexor bilaterally. Sensation: Sensation is intact to light touch in both arms and both legs. Cerebellar: Zpugzh-fgrw-ntvgez and heel-coulter movements are intact without dysmetria or other impairment. Gait: Deferred. Speech: Spontaneous speech is normal without appreciable dysarthria or aphasia. Repetition is intact. Involuntary movements: None. Pronator Drift: None. LABORATORY DATA: A basic metabolic panel is significant only for an elevated serum glucose of 124. A liver function panel collected on October 13, 2018, is within normal limits. B-natriuretic peptide 103.7, 83.1. Cardiac enzymes are negative x4. Ammonia 36. TSH 0.827. Hemoglobin A1c 5.8. Total cholesterol 141, triglycerides 82, LDL cholesterol 86, HDL cholesterol 39. The CBC with differential and platelets reveals a white blood cell count of 7.05 with a left shift with 77.3% neutrophils, 9.8% lymphocytes, 8.8% monocytes, 3.4% eosinophils, and 0.3% basophils. The hemoglobin and hematocrit are 13.1 and 38.7, respectively. The platelet count is 135. The coagulation profile is unremarkable. A urinalysis collected on October 14, 2018 revealed slightly cloudy urine. The urine culture collected on October 13, 2018, revealed no growth at 36 to 48 hours. DIAGNOSTIC STUDIES: Electrocardiogram 10/13/2018: Sinus rhythm at 69 beats per minute with sinus arrhythmia with occasional premature ventricular complexes. Hip x-ray 10/13/2018: No acute osseous injury. Moderate degenerative changes of both hip joints. Chest x-ray 10/13/2018: No evidence of acute traumatic injury to the thorax. No focal pneumonia or pulmonary edema. CT of the brain without contrast 10/14/2018: Suboptimal evaluation due to motion artifacts. However, despite this limitation, there is no evidence of recent large territorial ischemia, hemorrhage, mass, or mass effect. A remote lacunar infarct is seen in the right thalamus. There is diffuse cerebral atrophy with compensatory dilatation of the ventricles, normal for the patient's age. Their findings compatible with [id number] chronic small-vessel ischemic disease. Echocardiogram 10/14/2018: Ejection fraction 60% to 64%. Left ventricular hypertrophy. Left atrial enlargement. Trace tricuspid regurgitation. Bilateral carotid artery ultrasound with Doppler 10/15/2018: There is atherosclerosis without hemodynamically significant stenosis at the bilateral carotid bulbs, bilateral carotid bifurcations, and left internal carotid artery. Flow is antegrade in the bilateral vertebral arteries. MRI of brain without contrast 10/15/2018: On my review, there is no evidence of recent large territorial ischemia, hemorrhage, mass, or mass effect. There is diffuse cerebral atrophy with compensatory dilatation of the ventricles, normal for the patient's age. There are scattered T2/FLAIR hyperintense foci throughout the supratentorial white matter compatible with mild chronic small vessel ischemic disease. ASSESSMENT AND PLAN: Mr. Leiva is an 83-year-old man with past medical history as detailed admitted to [facility] status post fall with pain affecting the right hip. During his hospitalization, the patient received a dose of morphine, which caused confusion and visual hallucinations. Morphine was held and those symptoms have since resolved. At present, the patient's neurological examination is nonfocal. His laboratory data and other diagnostic studies have been reviewed and are documented above. In my opinion, the patient's confusion and visual hallucinations were side effects of treatment with morphine. RECOMMENDATIONS: Are as follows: 1. Avoid sedative/hypnotic and pain medications as these will alter the patient's sensorium. 2. Utilize environmental cues to limit delirium. 3. Defer treatment of the remaining medical comorbidities to the primary and other services following the patient. Thank you for this consultation. There are no other recommendations from Neurology at this time. Mr. Leiva may be discharged per the primary service. TIME SPENT: 70 minutes. Jenni Lemus MD CP/ANDRES /[id number] MTDD
--- NOTE | 2018-10-16 19:04 | NUR ---
PT RESTING ON BED BED SIDE REPORT GIVEN TO ONCOMING NURSE
[2018-10-16] MEDS: ATORVASTATIN 40 MG TAB PO SCH (21:03)
[2018-10-17] VITALS (8 sets, daily range): BP systolic 116–163; BP diastolic 56–71
[2018-10-17] MEDS: FUROSEMIDE 40 MG TAB PO SCH ×2 (06:15→16:38)
[2018-10-17] MEDS: INSULIN LISPRO 100 UNIT/1 ML 3ML VIAL SQ SCH ×5 (07:30→21:21)
[2018-10-17] MEDS: LINAGLIPTIN 5 MG PO SCH (08:31)
[2018-10-17] MEDS: OXYBUTYNIN CHLORIDE 5 MG TAB PO SCH (08:36)
[2018-10-17] MEDS: POTASSIUM CHLORIDE 10MEQ EA PO SCH (08:36)
[2018-10-17] MEDS: ASPIRIN 325 MG TAB PO SCH (08:36)
[2018-10-17] MEDS: TAMSULOSIN HCL 0.4 MG CAP PO SCH (08:36)
[2018-10-17] MEDS: DOCUSATE SODIUM 100 MG CAP PO SCH ×2 (08:36→16:38)
[2018-10-17] MEDS: FAMOTIDINE 20 MG TAB PO SCH ×2 (08:38→16:38)
[2018-10-17] MEDS: EZETIMIBE 10 MG TAB PO SCH (08:38)
[2018-10-17] MEDS: METOPROLOL SUCCINATE 50 MG TAB XL PO SCH (08:38)
--- NOTE | 2018-10-17 11:37 | Progress Note ---
DATE: 10/17/2018 Cardiology Progress Note SUBJECTIVE: No complaints. Denies chest pain or shortness of breath. Mentation improved. OBJECTIVE: VITAL SIGNS: Temperature 97.3, heart rate 56, respiratory rate 18, blood pressure 129/61, O2 saturation 94%. GENERAL: In no acute distress, alert. NECK: No JVD. CHEST: Clear to auscultation. CARDIOVASCULAR: Regular rate and rhythm. Normal S1, S2. No S3, no S4. ABDOMEN: Soft, nontender. EXTREMITIES: Trace edema. CARDIOVASCULAR MEDICATIONS: Reviewed. Furosemide 40 mg b.i.d., metoprolol succinate 50 mg daily, aspirin 325 mg daily, atorvastatin 80 mg at bedtime, tamsulosin 0.4 mg daily, Zetia 10 mg daily. STUDIES: Reviewed. Sodium 139, potassium 3.8, chloride 101, bicarbonate 28, BUN 22, creatinine 1.01, glucose 124. White blood cells 7.05, hemoglobin 13.1, platelets 135. INR 0.95, PT 13.2, PTT 31.6. AST 17, ALT 13, alkaline phosphatase 91, total bilirubin 1.5. ASSESSMENT: 1. An 83-year-old man presents with altered mental status, suspected related to opiate side effect and delirium, now improved. 2. Right internal carotid artery 50% to 69% asymptomatic stenosis noted on CT. 3. Coronary artery disease, status post aortocoronary bypass. 4. Diabetes mellitus. 5. Hypertension. 6. Dyslipidemia. 7. Chronic kidney disease. RECOMMENDATIONS: 1. Continue current cardiovascular medications. 2. Overall mentation seems to have improved. 3. Okay to discharge from a cardiovascular standpoint with outpatient followup advised in 4 to 6 weeks. Ras Perales MD AFV/MODL /[id number]
--- NOTE | 2018-10-17 12:16 | NUR ---
SPOKE WITH [facility] ABOUT [facility], THEY STATE DID NOT GET THE CLINICALS SO SENT REP TO COME ORAL THERAPIST UPDATED AND SUBMIT. ALSO ASKED FOR TODAYS PT NOTE, NOT IN SYSTEM YET AND NEED TO GET FOR AUTH. WILL SEND WHEN GET UPDATE.
--- NOTE | 2018-10-17 12:16 | NUR ---
EDUCATED ABOUT IMM, SIGNED, FILED IN CHART, WITH COPY LEFT WITH FAMILY AT BEDSIDE.
--- NOTE | 2018-10-17 19:20 | NUR ---
Report given to oncoming nurse of patient's status. Resting in bed. NO s/s of acute distress noted. Side rails upx3, call light within reach, bed alarm on.
--- NOTE | 2018-10-17 21:11 | NUR ---
RECEIVED PT IN BED AOX3 .DENIES PAIN NO ACUTE DISTRESS NOTED RT AC 20G S/L.CALL LIGHT WITH IN REACH .CONTINUE TO MONITOR
[2018-10-17] MEDS: ATORVASTATIN 40 MG TAB PO SCH (21:20)
[2018-10-18] VITALS: BP 158/86
[2018-10-18 04:00] VITALS: BP 142/86
[2018-10-18 04:41] LABS: BASOPHILS % 0.4 % (0.0-1.0); EOSINOPHILS # (AUTO) 0.3 (0.0-0.4); EOSINOPHILS % 4.4 % (0.0-6.0); HEMATOCRIT 39.2 % (38.2-49.6); HEMOGLOBIN 12.9 g/dL (14.0-18.0); LYMPHOCYTES # (AUTO) 0.9 (1.0-3.2); LYMPHOCYTES % 12.4 % (18.0-39.1); MEAN CORPUSCULAR HEMOGLOBIN 29.1 pg (28-32); MEAN CORPUSCULAR HGB CONC 32.9 g/dL (31-35); MEAN CORPUSCULAR VOLUME 88.3 fL (81-99); MONOCYTES # (AUTO) 0.6 (0.2-0.8); MONOCYTES % 8.4 % (4.4-11.3); NEUTROPHILS # (AUTO) 5.2 (2.1-6.9); NEUTROPHILS % 74.1 % (38.7-80.0); PLATELET COUNT 143 x10e3/uL (140-360); RED BLOOD COUNT 4.44 x10e6/uL (4.3-5.7); RED CELL DISTRIBUTION WIDTH 12.6 % (11.7-14.4)
[2018-10-18 04:59] LABS: ANION GAP 13.7 mmol/L (8-16); BLOOD UREA NITROGEN 25 mg/dL (7-26); BUN/CREATININE RATIO 23 (6-25); CALCIUM 9.2 mg/dL (8.4-10.2); CARBON DIOXIDE 28 mmol/L (22-29); CHLORIDE 102 mmol/L (98-107); CREATININE, SERUM 1.07 mg/dL (0.72-1.25); EST GLOMERULAR FILTRATION RATE > 60 ML/MIN (60-); GLUCOSE 133 mg/dL (74-118); POTASSIUM 3.7 mmol/L (3.5-5.1); SODIUM 140 mmol/L (136-145)
--- NOTE | 2018-10-18 05:28 | NUR ---
PT RESTING .NO ACUTE DISTRESS NOTED .CALL LIGHT WITH IN REACH .CONTINUE TO MONITOR
[2018-10-18] MEDS: FUROSEMIDE 40 MG TAB PO SCH (06:00)
--- NOTE | 2018-10-18 07:21 | NUR ---
BEDSIDE REPORT GIVEN TO THE ONCOMING NURSE
[2018-10-18] MEDS: INSULIN LISPRO 100 UNIT/1 ML 3ML VIAL SQ SCH ×2 (07:30→11:30)
[2018-10-18] MEDS: LINAGLIPTIN 5 MG PO SCH (08:05)
[2018-10-18 08:11] VITALS: BP 164/78
[2018-10-18] MEDS: ASPIRIN 325 MG TAB PO SCH (08:11)
[2018-10-18] MEDS: METOPROLOL SUCCINATE 50 MG TAB XL PO SCH (08:11)
[2018-10-18] MEDS: TAMSULOSIN HCL 0.4 MG CAP PO SCH (08:11)
[2018-10-18] MEDS: POTASSIUM CHLORIDE 10MEQ EA PO SCH (08:11)
[2018-10-18] MEDS: DOCUSATE SODIUM 100 MG CAP PO SCH (08:11)
[2018-10-18] MEDS: FAMOTIDINE 20 MG TAB PO SCH (08:11)
[2018-10-18] MEDS: OXYBUTYNIN CHLORIDE 5 MG TAB PO SCH (08:11)
[2018-10-18] MEDS: EZETIMIBE 10 MG TAB PO SCH (08:11)
[2018-10-18 08:39] VITALS: BP 164/78
[2018-10-18 11:27] VITALS: BP 144/67
--- NOTE | 2018-10-18 12:10 | NUR ---
attempted to call report to [facility] with no answer
--- NOTE | 2018-10-18 12:30 | NUR ---
Per litigation legal secretary from [facility], "Sharlene is the nurse who will be taking report, she will be calling you back"
--- NOTE | 2018-10-18 12:42 | NUR ---
Shannon Blanco, patient's , aware [facility] will [facility]. Voiced understanding.
--- NOTE | 2018-10-18 13:05 | NUR ---
Report called to [facility] and given to Riana STRONGN of patient's status.
[2018-10-18 15:28] VITALS: BP 124/67
--- NOTE | 2018-10-18 15:42 | NUR ---
Right AC IV discontinued. 2x2 gauze and tape placed. Taken via stretcher by [facility]. AAOX3 to time, person,place. Respirations even and unlabored. Transfer package given to EMS. All personal belongings taken with patient's .
--- NOTE | 2018-10-19 05:29 | Discharge Summary ---
ADMISSION DIAGNOSES: Ambulatory dysfunction, status post trip and fall; hypertension; hyperlipidemia; urinary retention/benign prostatic hypertrophy; bilateral buttock/sacral rash and scratches; type 2 diabetes. DISHCARGE DIAGNOSES: Ambulatory dysfunction, status post trip and fall; hypertension; hyperlipidemia; urinary retention/benign prostatic hypertrophy; bilateral buttock/sacral rash and scratches; type 2 diabetes. HISTORY: The patient has a history of hypertension, hyperlipidemia, CAD, type 2 diabetes, kidney stones, and chronic right hip pain. SURGICAL HISTORY: CABG. FAMILY HISTORY: The patient's brother and mother both have diabetes. The patient's uncle had cancer. The patient's father had a stroke. SOCIAL HISTORY: Noncontributory. HOSPITAL COURSE: An 83-year-old male tripped over one of his dogs on the day of admission and was brought to the hospital per EMS. He landed on his right hip. He denies loss of consciousness, hitting his head, or syncope. On admission, hip x-ray was done on the right hip, which showed no fracture. Chest x-ray showed no acute evidence to the thorax. Bilateral carotid Doppler showed possible significant stenosis on the right with carotid disease without significant stenosis on the left. Echo showed an EF of 55%. UA was negative x2. The patient became confused about 2 or 3 days into the hospital stay. Ammonia level was checked, which was negative. CT of the brain was negative. MRI of the brain was negative. The patient's became very concerned, so Neurology was consulted, who also said the patient did not have a stroke or TIA. It was likely due to the morphine he was being given for pain near the beginning of hospitalization. CTA of the neck showed 50% to 69% focal stenosis in the proximal right internal carotid, [id number] scattered calcified plaque in the left carotid bulb, and bilateral upper cervical internal carotid artery without significant stenosis. [facility] patient and 's request. The patient understands discharge instructions and agrees to plan. Vital signs stable, the patient afebrile. Dictated by Noris Bui NP MD VELASQUEZ Galvez/MODL /[id number]
== END 2018-10-18 15:43 | DRG 604 ==
LOC: ER 05:46 → ERHOLD 11:14 → MED/SURG2 15:54 → OBSVTOIN 10-15 09:06
PROVIDERS: ADMIT Internal Medicine; ATTEND Internal Medicine
DX: S70.01XA Contusion of right hip, initial encounter (principal); G92 Toxic encephalopathy; W01.0XXA Fall on same level from slipping, tripping and stumbling without subsequent striking against object, initial encounter; E78.5 Hyperlipidemia, unspecified; I10 Essential (primary) hypertension; I25.10 Atherosclerotic heart disease of native coronary artery without angina pectoris; E11.9 Type 2 diabetes mellitus without complications; S30.810A Abrasion of lower back and pelvis, initial encounter; G89.29 Other chronic pain; I65.23 Occlusion and stenosis of bilateral carotid arteries; I25.2 Old myocardial infarction; Z95.1 Presence of aortocoronary bypass graft; T40.2X5A Adverse effect of other opioids, initial encounter
CPT/HCPCS: 36415; 70450; 70498; 70551; 71045; 80048; 80053; 80061; 81001; 82140; 82550; 82553; 82948; 83036; 83735; 83880; 84443; 84484; 85025; 85610; 85730; 87086; 93005; 93306; 93880; 97139; 99284; G0378; J2270; Q9967

== ENCOUNTER 2018-12-07 15:16 | Observation (INO) | payer MEDICARE ==
[~2018-12-07] VITALS: Ht 177.8 cm; Wt 91.2 kg
[~2018-12-07 15:16] MED LIST changes: +TYLENOL WITH C1 EACH PO
--- NOTE | 2018-12-07 16:36 | Diagnostic Imaging Report ---
EXAMINATION: HIPS BILAT TWO VWS(+/- PELVIS) INDICATION: Trauma COMPARISON: None FINDINGS: AP and frog-leg views of both hips and AP view of the pelvis were obtained. No acute fracture or dislocation. Moderate degenerative changes of both hip joints and of the partially visualized lower lumbar spine. Phleboliths in the pelvis. Nonobstructive bowel gas pattern. Atherosclerotic arterial calcifications. IMPRESSION: No acute osseous injury. Degenerative changes as above. Signed by: Joey Merritt MD on 12/07/2018 4:33 PM
--- NOTE | 2018-12-07 16:36 | NUR ---
PER PT HE HAS DNR
--- NOTE | 2018-12-07 16:38 | Diagnostic Imaging Report ---
EXAMINATION: CHEST SINGLE (NOT PORTABLE) INDICATION: Trauma COMPARISON: None FINDINGS: LINES/TUBES:None LUNGS:The lungs are moderately inflated. No focal consolidation or pulmonary edema. PLEURA:No pleural effusion or pneumothorax. MEDIASTINUM:The cardiomediastinal silhouette appears normal in size and shape. BONES/SOFT TISSUES:No acute osseous injury. Postsurgical changes of prior CABG. ABDOMEN:No free air under the diaphragm. IMPRESSION: No focal pneumonia or pulmonary edema. No radiographic evidence of acute traumatic injury to the thorax. Signed by: Joey Merritt MD on 12/07/2018 4:34 PM
[2018-12-07 16:46] LABS: BASOPHILS % 0.3 % (0.0-1.0); EOSINOPHILS # (AUTO) 0.2 (0.0-0.4); EOSINOPHILS % 2.4 % (0.0-6.0); HEMATOCRIT 38.8 % (38.2-49.6); HEMOGLOBIN 12.9 g/dL (14.0-18.0); LYMPHOCYTES # (AUTO) 0.8 (1.0-3.2); LYMPHOCYTES % 11.4 % (18.0-39.1); MEAN CORPUSCULAR HEMOGLOBIN 29.5 pg (28-32); MEAN CORPUSCULAR HGB CONC 33.2 g/dL (31-35); MEAN CORPUSCULAR VOLUME 88.8 fL (81-99); MONOCYTES # (AUTO) 0.7 (0.2-0.8); NEUTROPHILS # (AUTO) 5.4 (2.1-6.9); NEUTROPHILS % 75.1 % (38.7-80.0); PLATELET COUNT 139 x10e3/uL (140-360); RED BLOOD COUNT 4.37 x10e6/uL (4.3-5.7); RED CELL DISTRIBUTION WIDTH 13.2 % (11.7-14.4)
[2018-12-07 16:50] LABS: BILIRUBIN,URINE NEGATIVE (NEGATIVE); CLARITY,URINE SL CLOUDY (CLEAR); COLOR,URINE YELLOW (YELLOW); KETONES,URINE NEGATIVE (NEGATIVE); LEUKOCYTE ESTERASE ,URINE NEGATIVE (NEGATIVE); NITRITE,URINE NEGATIVE (NEGATIVE); PROTEIN,URINE DIPSTICK TRACE (NEGATIVE); URINE UROBILINOGEN 0.2 mg/dL (0.2 - 1)
[2018-12-07 17:01] LABS: ALANINE AMINOTRANSFERASE 19 IU/L (0-55); ALBUMIN 3.4 g/dL (3.5-5.0); ALKALINE PHOSPHATASE 97 IU/L (40-150); ANION GAP 12.2 mmol/L (8-16); BLOOD UREA NITROGEN 19 mg/dL (7-26); BUN/CREATININE RATIO 17 (6-25); CALCIUM 9.3 mg/dL (8.4-10.2); CARBON DIOXIDE 29 mmol/L (22-29); CHLORIDE 100 mmol/L (98-107); CREATINE KINASE 99 IU/L (30-200); CREATININE, SERUM 1.11 mg/dL (0.72-1.25); EST GLOMERULAR FILTRATION RATE > 60 ML/MIN (60-); GLUCOSE 126 mg/dL (74-118); POTASSIUM 4.2 mmol/L (3.5-5.1); SODIUM 137 mmol/L (136-145)
[2018-12-07 17:03] LABS: BACTERIA,URINE MODERATE /HPF; EPITHELIAL CELLS,URINE FEW /LPF; WBC,URINE (MAN) 0-5 /HPF (0-5)
--- NOTE | 2018-12-07 17:40 | Diagnostic Imaging Report ---
History:Fall, weakness Comparison studies:MRI brain 10/15/2018 Technique: Axial images were obtained from the skull base to the vertex. Coronal and sagittal images reconstructed from the axial data. Intravenous contrast: None Dose modulation, iterative reconstruction, and/or weight based adjustment of the mA/kV was utilized to reduce the radiation dose to as low as reasonably achievable. Findings: Scalp/skull: No abnormalities. Extra-axial spaces: No masses. No fluid collections. Brain sulci: Mildly prominent. Ventricles: Mild compensatory dilatation. No hydrocephalus. Parenchyma: Few hypodensities in the supratentorial white matter are small vessel ischemic changes. No masses, hemorrhage, acute or chronic cortical vascular insults. Sellar/suprasellar region: No abnormalities. Craniocervical junction: Patent foramen magnum. No Chiari one malformation. Incidental findings: Atherosclerotic calcifications in the carotid siphons . Impression: No acute abnormalities. Chronic findings: 1. Mild generalized volume loss. 2. Mild supratentorial white matter small vessel ischemic changes. Signed by: DR Jun De Jesus M.D. on 12/07/2018 5:36 PM
[2018-12-07] MEDS ORDERED: CIPROFLOXACIN 400 MG/D5W 200ML 200 ML IV SCH (17:45)
[2018-12-07 21:55] VITALS: BP 138/66
[2018-12-07 22:07] VITALS: BP 138/66
--- NOTE | 2018-12-07 23:06 | NUR ---
PT ARRIVED TO FLOOR VIA STRETCHER. PT APPEARS IN NO DISTRESS. VSS. PT A&OX3. TREMORS NOTED. 3+ PITTING EDEMA TO BILATERAL LOWER EXTREMITIES. GENERALIZED RED PATCHES TO BODY. REDNESS TO GROIN. STAGE 2 PRESENT ON ARRIVAL TO INNER GLUTEAL FOLD. SKIN CRACKING AND REDNESS TO FOLD UNDER LEFT CHEST. BILATERAL HEELS RED AND CRACKING. HEEL PROTECTORS APPLIED BILATERALLY. ALLEVYN FOAM PATCH APPLIED TO SACRUM. PT LEFT EYE SHUT, PER PT IT DOES NOT OPEN, HAD IODINE SPLASHED IN IT AT AGE 14. FACIAL FLUSHING NOTED. PT ORIENTED TO ROOM AND CALL LIGHT. BED ALARM APPLIED. PT EDUCATED TO NOT GET OUT OF BED AND TO CALL FOR ANY ASSISTANCE NEEDED. CALL LIGHT IS IN REACH.
[2018-12-07 23:39] VITALS: BP 138/66
[2018-12-08] VITALS (8 sets, daily range): BP systolic 105–146; BP diastolic 51–68
[2018-12-08 03:15] LABS: CREATINE KINASE MB 2.4 ng/mL (0-5.0)
[2018-12-08] MEDS ORDERED: HYDRALAZINE HCL 20 MG/ML VIAL IV PRN (04:00)
[2018-12-08] MEDS ORDERED: ONDANSETRON HCL INJ 2MG/ML 2ML 2 MG/ML VIAL IV PRN (04:00)
[2018-12-08] MEDS ORDERED: ACETAMINOPHEN 325 MG TAB PO PRN (04:00)
[2018-12-08] MEDS: ACETAMINOPHEN/CODEINE 300MG - 30MG TAB PO PRN ×2 (04:40→12:37)
[2018-12-08] MEDS ORDERED: SODIUM CHLORIDE 0.9% 250ML 250 ML ONE (04:40)
[2018-12-08] MEDS: CEFTRIAXONE SOD 1 GM/NS 50 ML 50 ML IV SCH (05:10)
[2018-12-08 06:24] LABS: CREATINE KINASE MB 3.5 ng/mL (0-5.0)
[2018-12-08 06:44] LABS: CHOL/HDL RATIO 5.3 (3.9-4.7)
--- NOTE | 2018-12-08 07:37 | NUR ---
BEDSIDE REPORT GIVEN TO JINA GILL.
[2018-12-08] MEDS ORDERED: FUROSEMIDE 20 MG TAB PO SCH (09:00)
[2018-12-08] MEDS: POTASSIUM CHLORIDE 20 MEQ TAB CR PO SCH (09:59)
[2018-12-08] MEDS: EZETIMIBE 10 MG TAB PO SCH (09:59)
[2018-12-08] MEDS: DOCUSATE SODIUM 100 MG CAP PO SCH ×2 (09:59→17:42)
[2018-12-08] MEDS: FAMOTIDINE 20 MG TAB PO SCH ×2 (09:59→17:42)
[2018-12-08] MEDS: METOPROLOL SUCCINATE 50 MG TAB XL PO SCH (09:59)
[2018-12-08] MEDS: TAMSULOSIN HCL 0.4 MG CAP PO SCH (09:59)
[2018-12-08] MEDS: OXYBUTYNIN CHLORIDE XL 5 MG TAB PO SCH (09:59)
[2018-12-08] MEDS: ASPIRIN 325 MG TAB PO SCH (09:59)
[2018-12-08] MEDS ORDERED: ACETAMINOPHEN/CODEINE 300MG - 30MG TAB PO PRN (19:00)
--- NOTE | 2018-12-08 20:41 | NUR ---
RECEIVED PT IN BED AOX3 RESPIRATIONS ARE EVEN AND UNLABORED .SATGE 2 AT SACRUM .DENIES PAIN .CALL LIGHT WITH IN REACH ..CONTINUE TO MONITOR
[2018-12-08] MEDS: ATORVASTATIN 40 MG TAB PO SCH (21:00)
[2018-12-09] VITALS (10 sets, daily range): BP systolic 100–148; BP diastolic 50–67
[2018-12-09] MEDS ORDERED: SODIUM CHLORIDE 0.9% 250ML 250 ML ONE (03:51)
[2018-12-09] MEDS: CEFTRIAXONE SOD 1 GM/NS 50 ML 50 ML IV SCH (04:15)
[2018-12-09 05:56] LABS: BASOPHILS % 0.2 % (0.0-1.0); EOSINOPHILS # (AUTO) 0.1 (0.0-0.4); EOSINOPHILS % 1.1 % (0.0-6.0); HEMATOCRIT 39.6 % (38.2-49.6); HEMOGLOBIN 13.2 g/dL (14.0-18.0); LYMPHOCYTES # (AUTO) 0.8 (1.0-3.2); LYMPHOCYTES % 9.4 % (18.0-39.1); MEAN CORPUSCULAR HEMOGLOBIN 29.3 pg (28-32); MEAN CORPUSCULAR HGB CONC 33.3 g/dL (31-35); MEAN CORPUSCULAR VOLUME 87.8 fL (81-99); MONOCYTES # (AUTO) 0.7 (0.2-0.8); MONOCYTES % 7.9 % (4.4-11.3); NEUTROPHILS # (AUTO) 6.8 (2.1-6.9); PLATELET COUNT 142 x10e3/uL (140-360); RED BLOOD COUNT 4.51 x10e6/uL (4.3-5.7); RED CELL DISTRIBUTION WIDTH 12.9 % (11.7-14.4)
[2018-12-09 06:12] LABS: ANION GAP 13.1 mmol/L (8-16); BLOOD UREA NITROGEN 18 mg/dL (7-26); BUN/CREATININE RATIO 18 (6-25); CALCIUM 9.1 mg/dL (8.4-10.2); CARBON DIOXIDE 25 mmol/L (22-29); CHLORIDE 101 mmol/L (98-107); EST GLOMERULAR FILTRATION RATE > 60 ML/MIN (60-); GLUCOSE 122 mg/dL (74-118); POTASSIUM 4.1 mmol/L (3.5-5.1); SODIUM 135 mmol/L (136-145)
--- NOTE | 2018-12-09 07:14 | NUR ---
BEDSIDE REPORT GIVEN TO THE ON COMING NURSE
[2018-12-09] MEDS: FAMOTIDINE 20 MG TAB PO SCH ×2 (07:30→16:58)
[2018-12-09] MEDS ORDERED: POTASSIUM CHLORIDE 10MEQ EA PO SCH (09:00)
--- NOTE | 2018-12-09 09:00 | NUR ---
Patient with delirium, seeing things on the [place] and floor and attempted to reorient but still presents confused
[2018-12-09] MEDS: FUROSEMIDE INJ 10 MG/ML 4 ML VIAL IV SCH (09:02)
[2018-12-09] MEDS: OXYBUTYNIN CHLORIDE XL 5 MG TAB PO SCH (09:02)
[2018-12-09] MEDS: TAMSULOSIN HCL 0.4 MG CAP PO SCH (09:02)
[2018-12-09] MEDS: ASPIRIN 325 MG TAB PO SCH (09:02)
[2018-12-09] MEDS: DOCUSATE SODIUM 100 MG CAP PO SCH ×2 (09:02→16:58)
[2018-12-09] MEDS: POTASSIUM CHLORIDE 20 MEQ TAB CR PO SCH (09:02)
[2018-12-09] MEDS: EZETIMIBE 10 MG TAB PO SCH (09:03)
[2018-12-09] MEDS: METOPROLOL SUCCINATE 50 MG TAB XL PO SCH (09:04)
--- NOTE | 2018-12-09 09:05 | NUR ---
Patient alert and responsive, no resp distress, orders per Noris to d/c KCL 10meq entered this morning, patient already has KCL 20meq on profile.
--- NOTE | 2018-12-09 09:25 | NUR ---
WOUNDCARE CONSULT 83 YO MALE ADMITTED FOR GENERAL WEAKNESS WOUNDCARE CONSULTED FOR SACRAL STAGE 2 UPON FULL SKIN ASSESSMENT ONLY PALOMA SKIN IRRITATION WHICH HE USES BARRIER PASTE FOR PROTECTION ALSO SACRAL BLANCHABLE REDDNESS NOTED ALLEVYN FOAM IN PLACE FOR SHEER PROTECTION AND PATIENT ON CONSERVATIVE PUP R/T 19 TYSHAWN SCORE CAREGIVER AT BEDSIDE AND SEEMS WELL VERSED IN PT CARE AND SKIN PROTECTION NURSING TO RECONSULT WOUNDCARE FOR ANY FUTURE SKIN PROTECTION OR WOUND CONCERNS Addendum: 12/09/18 at 0932 by Geoff De Guzman RN Amended: Links added.
--- NOTE | 2018-12-09 09:47 | NUR ---
Nutrition Screen Note RD Recommendation for Physician: -Continue current diet per MD. -Consider 1800 ADA diet if glucose trends high per MD. Plan of Care: RD following, monitoring for tolerance and adequacy. Glucerna once per day. Nutrition reason for involvement: MST-2 Primary Diagnose(s): Generalized weakness PMH: hypertension, hyperlipidemia, diabetes mellitus, coronary artery disease with prior myocardial infarction, and chronic low back and right hip pain, Ht: 70 in Wt:210 lb BMI: 30.1 kg/m2 IBW: [address] Assessment: (12/09) 83 YOM admitted for generalized weakness with PMH listed above. Pt is currently confused, seen taking his pills with nurse at bedside. Pt could not answer any questions; could not retrieve weight/nutrition hx. There was no family at bedside. Pts breakfast tray was lying next to him. Pt was recently here in Oct and was 199 lbs suggesting the pt has had weight gain. Per wound assessment, pt had a stage II pressure ulcer on sacrum, wound care has not seen the pt yet but has been consulted. Recommend Glucerna supplement to help supply the pt with additional protein. Pt consumed 75% of his breakfast this morning per meal assessment. LBM: 12/09. Chart reviewed. Labs and meds reviewed. Current Diet: Cardiac Malnutrition Evaluation (12/09) The patient does not meet criteria for a specified degree of malnutrition at this time. Will re-evaluate at follow-up as appropriate. Diet Education Needs Assessment: Diet education indicated, pt is inappropriate to educate at this time. Nutrition Care Level: low Signed: Lorna Zelaya RD, STEVIE Addendum: 12/09/18 at 0949 by Lorna Zelaya DIET nutrition care level: mod*
--- NOTE | 2018-12-09 10:00 | NUR ---
Patient's here, states she is not comfortable with patient leaving today due to confusion and delirium, she states this has occurred within the last 48 hours and it is not patient's baseline.
--- NOTE | 2018-12-09 10:30 | NUR ---
Patient picked up for CTA and came back this morning
--- NOTE | 2018-12-09 14:00 | NUR ---
Patient with griffin episode, checked patient and was deep asleep, able to respond to verbal stimuli, stated he was fine, assisted with incontinence care and checked again, HR at 59, BP 100/55, will monitor.
--- NOTE | 2018-12-09 15:30 | NUR ---
Patient alert and responsive, had an episode of griffin and notified DARÍO Hamm and she stated 'Ok'.
[2018-12-09] MEDS ORDERED: IOPAMIDOL 370 MG/ML 200 ML INFUS..BTL INJ ONE (15:46)
[2018-12-09] MEDS ORDERED: SODIUM CHLORIDE 0.9% 100 ML 100 ML ONE (15:46)
--- NOTE | 2018-12-09 18:00 | NUR ---
Patient assisted with meals and ate about 75% of meals, good po fluid intake, remains stable and VSS, still appears confused with some delirium. Bed alarms in place, will monitor.
--- NOTE | 2018-12-09 18:53 | Diagnostic Imaging Report ---
History: AMS, generalized weakness, carotid stenosis Comparison studies:None Technique: Axial images were obtained from the thoracic inlet. 3-D reconstructions and maximum intensity projection reformats were performed. Coronal and sagittal images reconstructed from the axial data. Intravenous contrast: 100 cc of Omnipaque 300. Dose modulation, iterative reconstruction, and/or weight based adjustment of the mA/kV was utilized to reduce the radiation dose to as low as reasonably achievable. Findings: Limited evaluation due to patient positioning. Percentage of stenosis will be based on the NASCET criteria. Aortic arch and major vessels: Patent. Nonstenotic atherosclerotic calcifications. Common carotid arteries: Patent. No abnormalities. Right internal carotid artery: Calcified and noncalcified atherosclerotic plaque at the bulb results 60-70% stenosis. Left internal carotid artery: Calcified and noncalcified atherosclerotic plaque results in less than 30 % stenosis. Right vertebral artery: Patent. No abnormalities. Left vertebral artery: Patent. No abnormalities. Degenerative changes of the cervical spine IMPRESSION: Suboptimal study due to patient positioning. High-grade stenosis of the right carotid bulb is suspected. Mild stenosis of the left carotid bulb. The remaining neck vessels showed no high-grade stenosis. 1. Signed by: DR Jun De Jesus M.D. on 12/09/2018 6:50 PM
--- NOTE | 2018-12-09 19:17 | NUR ---
Rounds completed and patient alert and responsive, at bedside.
[2018-12-09] MEDS: ATORVASTATIN 40 MG TAB PO SCH (20:31)
[2018-12-10] MEDS: CEFTRIAXONE SOD 1 GM/NS 50 ML 50 ML IV SCH (03:15)
[2018-12-10 03:48] LABS: BASOPHILS % 0.5 % (0.0-1.0); EOSINOPHILS # (AUTO) 0.1 (0.0-0.4); EOSINOPHILS % 2.4 % (0.0-6.0); HEMATOCRIT 37.1 % (38.2-49.6); HEMOGLOBIN 12.1 g/dL (14.0-18.0); LYMPHOCYTES # (AUTO) 0.5 (1.0-3.2); MEAN CORPUSCULAR HEMOGLOBIN 29.2 pg (28-32); MEAN CORPUSCULAR HGB CONC 32.6 g/dL (31-35); MEAN CORPUSCULAR VOLUME 89.6 fL (81-99); MONOCYTES # (AUTO) 0.5 (0.2-0.8); MONOCYTES % 8.3 % (4.4-11.3); NEUTROPHILS # (AUTO) 4.7 (2.1-6.9); NEUTROPHILS % 79.1 % (38.7-80.0); PLATELET COUNT 129 x10e3/uL (140-360); RED BLOOD COUNT 4.14 x10e6/uL (4.3-5.7)
[2018-12-10 03:56] LABS: BLOOD UREA NITROGEN 21 mg/dL (7-26); BUN/CREATININE RATIO 20 (6-25); CALCIUM 8.7 mg/dL (8.4-10.2); CARBON DIOXIDE 24 mmol/L (22-29); CHLORIDE 105 mmol/L (98-107); CREATININE, SERUM 1.06 mg/dL (0.72-1.25); EST GLOMERULAR FILTRATION RATE > 60 ML/MIN (60-); GLUCOSE 120 mg/dL (74-118); SODIUM 137 mmol/L (136-145)
[2018-12-10 04:00] VITALS: BP 115/56
[2018-12-10 04:54] LABS: EOSINOPHILS % (MANUAL) 3 % (0-7); LYMPHOCYTES % (MANUAL) 12 % (19-48); MONOCYTES % (MANUAL) 10 % (3.4-9.0); NEUTROPHILS % (MANUAL) 75 % (40-74); PLATELET ESTIMATE SLIGHTLY DECREASED; PLATELET MORPHOLOGY COMMENT NORMAL; RBC MORPHOLOGY COMMENT NORMAL
--- NOTE | 2018-12-10 07:18 | NUR ---
Received patient this morning, alert and appears more coherent, making request known and responds to questions appropriately. Delirium resolving, call light within reach and will monitor.
[2018-12-10] MEDS: FAMOTIDINE 20 MG TAB PO SCH ×2 (07:30→16:30)
[2018-12-10 08:32] VITALS: BP 123/58
[2018-12-10] MEDS: METOPROLOL SUCCINATE 50 MG TAB XL PO SCH (09:00)
[2018-12-10] MEDS: TAMSULOSIN HCL 0.4 MG CAP PO SCH (09:16)
[2018-12-10] MEDS: EZETIMIBE 10 MG TAB PO SCH (09:16)
[2018-12-10] MEDS: OXYBUTYNIN CHLORIDE XL 5 MG TAB PO SCH (09:16)
[2018-12-10] MEDS: ASPIRIN 325 MG TAB PO SCH (09:16)
[2018-12-10] MEDS: DOCUSATE SODIUM 100 MG CAP PO SCH (09:16)
[2018-12-10] MEDS: FUROSEMIDE INJ 10 MG/ML 4 ML VIAL IV SCH (09:16)
[2018-12-10] MEDS: POTASSIUM CHLORIDE 20 MEQ TAB CR PO SCH (09:16)
[2018-12-10 09:24] VITALS: BP 123/58
--- NOTE | 2018-12-10 10:13 | NUR ---
Patient more alert, requested for a commode, assisted OOB to commode with 2 assist, had a large BM and also voided, assisted back to bed, will monitor, SCDs in place, air mattress in place, bed alarms on.
--- NOTE | 2018-12-10 11:24 | NUR ---
Rounds by Dr. Lemus at this time and stated she was ok with patient being discharged.
[2018-12-10 11:57] VITALS: BP 137/66
--- NOTE | 2018-12-10 12:29 | NUR ---
[facility] DISCHARGE INFORMATION PATIENT HAS BEEN ACCEPTED TO: [facility] NAME:[facility] ADDRESS:[id number] [facility] , [place] [address] ACCEPTING MD:DR MOTA ROOM:[id number] NURSE CALL REPORT TO: [phone]
--- NOTE | 2018-12-10 13:02 | NUR ---
Patient has [facility] bed [facility], call to DARÍO Hamm for medication review and discharge proceedings, left message and waiting for call back
--- NOTE | 2018-12-10 15:49 | NUR ---
Orders per NURSES SUPERINTENDENT for attending to discharge to SNF, IV line in place, report given to DEEPTI [facility] and ambulance called at this time
--- NOTE | 2018-12-10 15:53 | NUR ---
Call to patient's life partner and updated to patient's transfer.
[2018-12-10 16:34] VITALS: BP 132/60
--- NOTE | 2018-12-10 16:51 | NUR ---
IV line in place for IV ceftriaxone infusion for 12 more days, patient a/ox3, no c/o pains, notified partner of transfer, picked up by production graphic designer. Had a large BM today.
--- NOTE | 2018-12-10 19:43 | Discharge Summary ---
ADMISSION DIAGNOSES: 1. Generalized weakness. 2. Hypertension. 3. Hyperlipidemia. 4. Type 2 diabetes. 5. Urinary tract infection, present on admission. 6. Benign prostatic hyperplasia. DISCHARGE DIAGNOSES: 1. Generalized weakness. 2. Hypertension. 3. Hyperlipidemia. 4. Type 2 diabetes. 5. Urinary tract infection, present on admission. 6. Benign prostatic hyperplasia. 7. Unable to rule out cerebrovascular accident due to refusal of MRI. HISTORY: Hypertension, hyperlipidemia, CAD, type 2 diabetes, kidney stones, chronic right hip pain, and BPH. SURGICAL HISTORY: CABG. FAMILY HISTORY: The patient's mother and brother have diabetes. The patient's uncle had cancer. The patient's dad had a stroke. HOSPITAL COURSE: An 83-year-old male admits with generalized weakness and frequent falls 3 times this week. He admits to weakness, but denies tripping. He uses a cane and walker at home. He denies dysphagia, focal weakness, and dizziness. On admission, CT of the brain was negative. The patient refused an MRI. Neurology was consulted, who had recently cleared the patient on a previous admission just a couple weeks earlier. Carotid Doppler showed possible significant stenosis, so CTA of the neck was done, which showed no significant stenosis of the carotid arteries. Bilateral hip x-ray was negative. Chest x-ray was negative. UA showed moderate bacteria. The urine culture was negative x24 hours prior to discharge. The patient is improving as well as lab with just IV Rocephin. [facility]. The patient and understand discharge instructions and agreed to plan. Vital signs stable. The patient is afebrile. Dictated by Noris Bui NP MD VELASQUEZ Galvez/MODDre /[id number]
== END 2018-12-10 16:40 ==
LOC: ER 15:16 → ERHOLD 17:01 → MED/SURG 21:42 → INTOOBSV 12-10 05:35 → OBSVTOIN 12-10 05:35
PROVIDERS: ADMIT Internal Medicine; ATTEND Internal Medicine
DX: R53.1 Weakness (principal); N30.00 Acute cystitis without hematuria; Z91.81 History of falling; I10 Essential (primary) hypertension; E78.5 Hyperlipidemia, unspecified; I25.10 Atherosclerotic heart disease of native coronary artery without angina pectoris; Z87.442 Personal history of urinary calculi; M25.551 Pain in right hip; N40.0 Benign prostatic hyperplasia without lower urinary tract symptoms; Z95.1 Presence of aortocoronary bypass graft; Z83.3 Family history of diabetes mellitus; Z82.3 Family history of stroke; Z80.9 Family history of malignant neoplasm, unspecified; E11.42 Type 2 diabetes mellitus with diabetic polyneuropathy; Z79.82 Long term (current) use of aspirin; Z79.84 Long term (current) use of oral hypoglycemic drugs
CPT/HCPCS: 36415 ×3; 70450; 70498; 71045; 73521; 80048 ×2; 80053; 80061; 81001; 82140; 82550 ×2; 82553 ×2; 82948 ×3; 83036; 83880; 84443; 84484 ×2; 85025 ×3; 87086; 92610; 93005; 93306; 93880; 97110; 97116 ×2; 97139 ×2; 97162; 97530 ×2; 99284; G0378 ×4; J0696 ×3; J0744; J1940 ×2; J7050 ×2; Q9967

== ENCOUNTER 2019-02-18 13:44 | Observation (INO) | payer MEDICARE ==
[~2019-02-18] VITALS: Ht 177.8 cm; Wt 97.5 kg
[2019-02-18 14:13] LABS: BASOPHILS % 0.3 % (0.0-1.0); EOSINOPHILS # (AUTO) 0.2 (0.0-0.4); EOSINOPHILS % 3.1 % (0.0-6.0); HEMATOCRIT 39.9 % (38.2-49.6); HEMOGLOBIN 13.4 g/dL (14.0-18.0); LYMPHOCYTES % 15.6 % (18.0-39.1); MEAN CORPUSCULAR HEMOGLOBIN 29.7 pg (28-32); MEAN CORPUSCULAR HGB CONC 33.6 g/dL (31-35); MEAN CORPUSCULAR VOLUME 88.5 fL (81-99); MONOCYTES # (AUTO) 0.6 (0.2-0.8); MONOCYTES % 9.3 % (4.4-11.3); NEUTROPHILS # (AUTO) 4.4 (2.1-6.9); NEUTROPHILS % 71.2 % (38.7-80.0); PLATELET COUNT 145 x10e3/uL (140-360); RED BLOOD COUNT 4.51 x10e6/uL (4.3-5.7); RED CELL DISTRIBUTION WIDTH 12.8 % (11.7-14.4)
--- NOTE | 2019-02-18 14:13 | NUR ---
PT STRAIGHT CATH FOR UA PER MD ORDERS VIA ASEPTIC TECHNIQUE; APPOX URINE OUTPUT 150 CC; UA COLLECTED AND SENT TO LAB
[2019-02-18 14:25] LABS: ALANINE AMINOTRANSFERASE 16 IU/L (0-55); ALBUMIN 3.5 g/dL (3.5-5.0); ALKALINE PHOSPHATASE 89 IU/L (40-150); BLOOD UREA NITROGEN 19 mg/dL (7-26); BUN/CREATININE RATIO 17 (6-25); CALCIUM 9.3 mg/dL (8.4-10.2); CARBON DIOXIDE 28 mmol/L (22-29); CHLORIDE 103 mmol/L (98-107); CREATINE KINASE 105 IU/L (30-200); CREATININE, SERUM 1.09 mg/dL (0.72-1.25); EST GLOMERULAR FILTRATION RATE > 60 ML/MIN (60-); GLUCOSE 136 mg/dL (74-118); SODIUM 141 mmol/L (136-145)
[2019-02-18] MEDS ORDERED: DIPHENHYDRAMINE HCL INJ 50 MG/ML VIAL IV ONE (14:30)
[2019-02-18] MEDS ORDERED: ONDANSETRON HCL INJ 2MG/ML 2ML 2 MG/ML VIAL IV PRN (15:30)
[2019-02-18] MEDS ORDERED: ASPIRIN 81 MG CHEW TAB PO ONE (15:30)
--- NOTE | 2019-02-18 15:33 | Diagnostic Imaging Report ---
EXAMINATION: Head CT HISTORY: Dizziness, weakness COMPARISON: None. TECHNIQUE: Multidetector axial images were obtained without contrast from the foramen magnum to the vertex . The images were reconstructed using brain and bone algorithms. Thin section brain images were reformatted into coronal and sagittal planes. Image quality: Motion/streaking artifact limits the evaluation of the skull base and posterior cranial fossa. Dose modulation, iterative reconstruction, and/or weight based adjustment of the mA/kV was utilized to reduce the radiation dose to as low as reasonably achievable. FINDINGS: Parenchyma: 1. A few scattered hypodensities, most likely nonspecific chronic microvascular changes. 2. No mass or hemorrhage. No CT evidence of acute territorial vascular insult. Extra-axial spaces:No abnormal density. No extra-axial fluid collections Brain volume: Normal for age. Ventricles: No hydrocephalus or displacement. Arteries: No density suggestive of thrombus. Dural sinuses: No abnormal density. Extra-axial spaces: No abnormal density. Foramen magnum: No mass, Chiari malformation, or basilar invagination. Sella: No obvious mass. Paranasal/mastoid sinuses: Imaged portions unremarkable. Skull/Scalp: No lytic or blastic lesions. No fractures. IMPRESSION: 1. No acute intracranial hemorrhage or cortical infarcts. 2. Mild white matter chronic microvascular ischemic changes. Signed by: Dr. Neda Mccarthy M.D. on 02/18/2019 3:29 PM
[2019-02-18] MEDS ORDERED: MORPHINE SULFATE INJ 4 MG/ML INJ 1ML IV PRN (15:45)
--- NOTE | 2019-02-18 15:48 | Diagnostic Imaging Report ---
EXAMINATION: CHEST 2 VIEWS INDICATION: ^ORDER PLACED BY ^[id number] ^[id number] ^Y COMPARISON: Chest radiograph 12/07/2018 FINDINGS: PA and lateral views TUBES and LINES: None. LUNGS: Lungs are well inflated. Interval development of bilateral interstitial edema. No new consolidations. PLEURA: No pleural effusion or pneumothorax. HEART AND MEDIASTINUM: Mild enlargement of the cardiac silhouette remains unchanged. BONES AND SOFT TISSUES: Intact median sternotomy wires. Soft tissues are unremarkable. UPPER ABDOMEN: No free air under the diaphragm. IMPRESSION: Interval development of bilateral interstitial edema. Signed by: Dr. Luci Pappas M.D. on 02/18/2019 3:45 PM
[2019-02-18 15:58] LABS: CLARITY,URINE CLEAR (CLEAR); COLOR,URINE YELLOW (YELLOW)
[2019-02-18 16:00] LABS: LEUKOCYTE ESTERASE ,URINE NEGATIVE (NEGATIVE); NITRITE,URINE NEGATIVE (NEGATIVE); PROTEIN,URINE DIPSTICK NEGATIVE (NEGATIVE)
[2019-02-18 16:01] LABS: BILIRUBIN,URINE NEGATIVE (NEGATIVE); KETONES,URINE NEGATIVE (NEGATIVE); URINE UROBILINOGEN 0.2 mg/dL (0.2 - 1)
[2019-02-18] MEDS ORDERED: HYDRALAZINE HCL 20 MG/ML VIAL IV PRN (16:30)
[2019-02-18] MEDS ORDERED: ACETAMINOPHEN 325 MG TAB PO PRN (16:30)
[2019-02-18] MEDS ORDERED: DEXTROSE 50% SYRINGE 50 ML IV PRN (16:30)
[2019-02-18] MEDS ORDERED: MORPHINE SULFATE 2 MG/ML SYR 1ML IV PRN (16:45)
[2019-02-18] MEDS: SODIUM CHLORIDE 0.9% 1000ML 1,000 ML IV SCH ×2 (16:45→19:18)
--- NOTE | 2019-02-18 17:27 | NUR ---
received pt from er . pt placed to bed, family t bedside, full assessment done . pt partner states she does not remeber pt meds at home and will bring list later today or tomorrow morning. pt partner also states she needs to call primary dr to check if pt received flu and pneumonia shot this year
[2019-02-18 17:39] VITALS: BP 134/76
[2019-02-18 18:03] VITALS: BP 134/76
[2019-02-18 18:29] VITALS: BP 134/76
[2019-02-18] MEDS: ENOXAPARIN SOD INJ 40 MG/0.4 ML SYR SC SCH (19:03)
--- NOTE | 2019-02-18 19:05 | NUR ---
report given to next shift, pt resting in bed, ivf started on pump bed alarm on
[2019-02-18 20:00] VITALS: BP 147/70
[2019-02-18 22:02] VITALS: BP 147/70
[2019-02-18 22:05] VITALS: BP 147/70
--- NOTE | 2019-02-18 23:06 | History and Physical ---
CHIEF COMPLAINT: Chest pain. HISTORY OF PRESENT ILLNESS: An 83-year-old male with history of hypertension, hyperlipidemia, type 2 diabetes, urinary tract infections in the past, BPH, history of chronic hip pain, came into the ED with complaints of chest pain. The patient reports he has been having chest pain ongoing for the last 1-2 days. Reports substernal, radiates to the left shoulder and arm. 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 He denies any nausea, vomiting, abdominal pain, cough, or congestion. The patient was seen and evaluated at bedside on the medical floor in the emergency room. He is currently doing well with no complaints. He denies any chest pain at this time. REVIEW OF SYSTEMS: Pertinent positives: Chest pain. Pertinent negatives: Denies any palpitation, nausea, vomiting, diarrhea, dysuria, hematuria, frequency, urgency, lightheadedness, dizziness, abdominal pain, headaches, shortness of breath, cough, congestion, fever, or any other complaints. The rest of 14-point review of systems have been reviewed with the patient and are negative. ALLERGIES: NO KNOWN DRUG ALLERGIES. HOME MEDICATIONS: Tylenol No. 3, aspirin, cholecalciferol, Benadryl, docusate, Zetia, fluocinonide, Lasix, metoprolol, multivitamin, potassium, tamsulosin, atorvastatin, Tradjenta, oxybutynin, fish oil. PAST MEDICAL HISTORY: Hyperlipidemia, hypertension, BPH. PAST SURGICAL HISTORY: Reports none. FAMILY HISTORY: Hypertension and diabetes. SOCIAL HISTORY: No drugs. No alcohol. Does not smoke. He has a partner at home. LABORATORY FINDINGS: Show white count 6.1, hemoglobin 13.4, hematocrit is 39.3, platelets of 145. Chemistry; sodium 141, potassium 4, chloride 103, bicarb 29, anion gap of 14, BUN is 19, creatinine is 1, glucose 136, calcium is 9.3. LFTs within normal range. Troponins were negative. Total protein is 6.9. BNP 23. Urinalysis negative. Microbiology none. CT of brain, no acute intracranial hemorrhage or cortical infarct. Mild white matter chronic microvascular ischemic changes. Chest x-ray, interval development of bilateral interstitial edema. PHYSICAL EXAMINATION: VITAL SIGNS: Temperature is 99.1, pulse 81, respiratory rate 16, blood pressure 120/86, and pulse ox 98% on room air. GENERAL: Not in acute distress. He is bed-bound with a history of weakness. HEENT: Head; normocephalic, atraumatic. Eyes; pupils are equal, round, and reactive to light bilaterally. Extraocular movements intact bilaterally. Throat; no evidence of erythema or exudates in the posterior pharynx. Has poor dentition. NECK: Supple. Good range of motion. PULMONARY: Clear to auscultation bilaterally. No wheezing, rales, or rhonchi. No crackles appreciated. CARDIOVASCULAR: Positive S1 and S2. No murmurs, rubs, or gallops appreciated. ABDOMEN: Soft, nondistended, and nontender to palpation. Bowel sounds present. MUSCULOSKELETAL: He is currently bed-bound. NEUROLOGICAL: Currently bed-bound. SKIN: Intact. Warm to touch. Good cap refill. PSYCHIATRIC: Normal affect and mood. EXTREMITIES: No edema. Good range of motion. IMPRESSION: 1. Chest pain, rule out acute coronary syndrome, likely atypical in nature. 2. Hypertension. 3. Hyperlipidemia. 4. Type 2 diabetes. 5. Oxybutynin. PLAN: At this time, we are going to trend troponins. Continue cardioprotective medications with Cardiology consultation. This sounds more atypical in nature in terms of the chest pain. Resume same home medications. Put him on insulin sliding scale. Resume same antihypertensive medications, p.r.n. hydralazine. PT and OT evaluation. Lovenox for DVT prophylaxis. We will monitor the patient on observation overnight. Once he is cleared by the consultants, we will discharge to home. MD EVANGELINA Reyes/ANDRES /[id number]
[2019-02-19] VITALS (8 sets, daily range): BP systolic 135–179; BP diastolic 66–80
[2019-02-19 00:05] LABS: CREATINE KINASE MB 2.4 ng/mL (0-5.0)
[2019-02-19 06:28] LABS: BASOPHILS % 0.5 % (0.0-1.0); EOSINOPHILS # (AUTO) 0.2 (0.0-0.4); EOSINOPHILS % 3.6 % (0.0-6.0); HEMATOCRIT 36.9 % (38.2-49.6); HEMOGLOBIN 12.1 g/dL (14.0-18.0); LYMPHOCYTES # (AUTO) 0.8 (1.0-3.2); LYMPHOCYTES % 13.7 % (18.0-39.1); MEAN CORPUSCULAR HGB CONC 32.8 g/dL (31-35); MEAN CORPUSCULAR VOLUME 88.5 fL (81-99); MONOCYTES # (AUTO) 0.6 (0.2-0.8); MONOCYTES % 9.9 % (4.4-11.3); NEUTROPHILS % 71.9 % (38.7-80.0); PLATELET COUNT 130 x10e3/uL (140-360); RED BLOOD COUNT 4.17 x10e6/uL (4.3-5.7); RED CELL DISTRIBUTION WIDTH 12.7 % (11.7-14.4)
[2019-02-19 06:58] LABS: CREATINE KINASE MB 2.4 ng/mL (0-5.0)
[2019-02-19 08:37] LABS: ANION GAP 14.7 mmol/L (8-16); BLOOD UREA NITROGEN 17 mg/dL (7-26); BUN/CREATININE RATIO 20 (6-25); CALCIUM 8.7 mg/dL (8.4-10.2); CARBON DIOXIDE 23 mmol/L (22-29); CHLORIDE 105 mmol/L (98-107); CREATININE, SERUM 0.86 mg/dL (0.72-1.25); EST GLOMERULAR FILTRATION RATE > 60 ML/MIN (60-); GLUCOSE 113 mg/dL (74-118); POTASSIUM 3.7 mmol/L (3.5-5.1); SODIUM 139 mmol/L (136-145)
[2019-02-19] MEDS: ASPIRIN 325 MG TAB PO SCH (08:45)
[2019-02-19 08:54] LABS: ANION GAP 11.7 mmol/L (8-16); BLOOD UREA NITROGEN 16 mg/dL (7-26); BUN/CREATININE RATIO 17 (6-25); CALCIUM 8.6 mg/dL (8.4-10.2); CARBON DIOXIDE 26 mmol/L (22-29); CHLORIDE 105 mmol/L (98-107); CREATININE, SERUM 0.96 mg/dL (0.72-1.25); EST GLOMERULAR FILTRATION RATE > 60 ML/MIN (60-); GLUCOSE 107 mg/dL (74-118); POTASSIUM 3.7 mmol/L (3.5-5.1); SODIUM 139 mmol/L (136-145)
[2019-02-19] MEDS: ACETAMINOPHEN/CODEINE 300MG - 30MG TAB PO PRN ×3 (09:38→22:09)
[2019-02-19 09:46] LABS: PLATELET ESTIMATE ADEQUATE; PLATELET MORPHOLOGY COMMENT RARE EDTA CLUMPING; RBC MORPHOLOGY COMMENT NORMAL
[2019-02-19] MEDS ORDERED: NORCO 5-325 TA1 EACH PO (10:30)
--- NOTE | 2019-02-19 13:00 | Progress Note ---
DATE: 02/19/2019 Medicine Progress Note SUBJECTIVE: The patient reports having some visual hallucinations. No reports of any chest pain. He is chronically left-sided weakness from a prior CVA. He reports that he was seeing things last night as well as early this morning. Nursing staff was present throughout this entire conversation with the patient. There are currently no family members. I did consult with Psychiatry and also want caregiver to come by and speak with us to see what the patient's true baseline is. PHYSICAL EXAMINATION: VITAL SIGNS: Temperature is 97.1, pulse 60, respiratory rate is 18, blood pressure 135/66, and pulse ox 97% on room air. GENERAL: Not in acute distress. Alert and oriented x3. He was cooperative on examination. HEENT: Head; normocephalic, atraumatic. Eyes; pupils are equal, round, and reactive to light bilaterally. Extraocular movements intact bilaterally. Throat; no evidence of erythema or exudates in the posterior pharynx. Has poor dentition. NECK: Supple. Good range of motion. PULMONARY: Clear to auscultation bilaterally. No wheezing, no rales, no rhonchi, no crackles appreciated. CARDIOVASCULAR: Positive S1 and S2. No murmurs, rubs, or gallops appreciated. ABDOMEN: Soft, nondistended, and nontender to palpation. Bowel sounds present. MUSCULOSKELETAL: The patient has chronic left-sided weakness. Apparently, this was from the past from a previous CVA. NEUROLOGIC: Still chronic left-sided weakness, bed-bound. Uses a cane occasionally for walking. SKIN: Intact. Warm to touch. Good cap refill. PSYCHIATRIC: Normal affect and mood. EXTREMITIES: No edema. Good range of motion throughout. LABORATORY FINDINGS: Show white count 5.3, hemoglobin 12, hematocrit is 36.9, and platelets of 130. Chemistry; sodium 139, potassium 3.7, chloride 105, bicarb 26, anion gap of 11.7, BUN 16, calcium 8.6, and glucose 107. Troponins were negative. BNP 23. Urinalysis was negative. Chest x-ray showed some mild bilateral interstitial edema. CT brain shows no acute intracranial hemorrhage or cortical infarcts. IMPRESSION: 1. Atypical chest pain. 2. Hypertension. 3. Hyperlipidemia. 4. Type 2 diabetes. 5. 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 6. Visual hallucinations concerning for underlying dementia with behavioral disturbances. PLAN: At this time, I spoke with Cardiology. This is likely atypical in nature. No further workup was needed by Cardiology. Cardiac enzymes were negative. We did continue his same home medications for now. PT/OT evaluation. Lovenox for DVT prophylaxis. As for his visual hallucinations, it seems that this patient has some baseline dementia. I will go ahead and consult Psychiatry to see if they can come and evaluate him further. The patient seems to have chronic left-sided weakness. I do need to speak to the operational assistant to see what this patient's true baseline is. I did discuss this with the patient at bedside. He is currently not having any hallucinations during my evaluation. His UA was negative. His white count was normal. He was afebrile. Source of infection is less likely. We will continue to monitor very closely. I would like to speak to the operational assistant as well. I discussed this plan of care with the nursing staff. MD EVANGELINA Reyes/ANDRES /[id number]
--- NOTE | 2019-02-19 13:10 | Consultation ---
DATE OF CONSULTATION: 02/19/2019 Cardiology Consultation CONSULTING PHYSICIAN: Ras Perales MD, Interventional Cardiology. REASON FOR CONSULTATION: Atypical chest pain. HISTORY OF PRESENT ILLNESS: Mr. Leiva is a pleasant 83-year-old man, well known to me with a history of diabetes mellitus type 2, hypertension, dyslipidemia, coronary artery disease, status post aortic coronary bypass, who presents to the hospital with episodes of visual hallucinations and episodes of confusion, that are getting incrementally worse. He also notices mild discomfort at the sternotomy site, which he describes as burning; this has been ongoing for several months to years since bypass. He underwent myocardial perfusion stress test, which was reassuring with hyperdynamic left ventricular systolic function back in 12/17/2017. He also has a history of nephrolithiasis and follows up with Urology for this. His gait and ambulation have continued to gradually worsen over the last year and with unsteady gait age-assistance requirements have continued to become incrementally more significant. He has no other complaints currently. REVIEW OF SYSTEMS: A 12-system review is negative except for as noted above. ALLERGIES: NO KNOWN DRUG ALLERGIES. PAST MEDICAL HISTORY: Remarkable for aortic coronary bypass 3-vessel in 2014, history of nephrolithiasis related procedure in 2017. FAMILY HISTORY: Remarkable for heart disease in father. SOCIAL HISTORY: No active smoking, alcohol, or drugs. HOME CARDIOVASCULAR MEDICATIONS: Include aspirin 81 mg daily, atorvastatin 80 mg at bedtime, furosemide 40 mg daily, valsartan 40 mg twice a day, Ezetimibe 10 mg daily, metoprolol succinate 50 mg daily, Tradjenta 5 mg daily, oxybutynin 15 mg daily, tamsulosin 0.4 mg daily, potassium chloride 20 mEq p.r.n. PHYSICAL EXAMINATION: VITAL SIGNS: Temperature 97.1, heart rate 60, respiratory rate 18, blood pressure 135/66, and O2 saturation 97% on room air. GENERAL: In no acute distress, alert. NECK: No JVD. No carotid bruit. CHEST: Clear to auscultation. CARDIOVASCULAR: Regular rate and rhythm. Normal S1, S2. 1/6 systolic ejection murmur. No S3, no S4. Sternotomy scar. ABDOMEN: Soft. Bowel sounds positive. EXTREMITIES: 1+ edema in both lower extremities. Warm distal extremities. STUDIES: Sodium 139, potassium 3.7, chloride 105, bicarbonate 26, BUN 16, creatinine 0.9, glucose 107, calcium 8.6. Troponin I negative x3. BNP 23.4. Brain CT, no acute intracranial hemorrhage or cortical infarcts, mild white matter chronic microvascular ischemic changes. Chest x-ray with bilateral interstitial edema, medial sternotomy wires, and mild enlargement of cardiac silhouette. ASSESSMENT AND PLAN: 1. An 83-year-old man presents with visual hallucinations and episodes of confusion, concerning for delirium versus on diagnosed dementia. He has family history of dementia. 2. Coronary artery disease, status post aortocoronary bypass, presenting with atypical chest pain, likely related to post sternotomy incision, chronic discomfort. 3. Diabetes mellitus. 4. Hypertension. 5. Dyslipidemia. 6. History of nephrolithiasis. RECOMMEND: 1. Consider Neurology consultation. 2. Consider Case Management and Rn Wound consultation for evaluation of the patient, need for placement. 3. Resume home cardiovascular medications. 4. Obtain echocardiogram. 5. Resume diuretics for [id number]-[id number] heart failure. MD GIANFRANCO Ball/ANDRES /[id number]
[2019-02-19] MEDS: FUROSEMIDE INJ 10 MG/ML 4 ML VIAL IV SCH (14:54)
[2019-02-19] MEDS: ENOXAPARIN SOD INJ 40 MG/0.4 ML SYR SC SCH (16:35)
--- NOTE | 2019-02-19 19:30 | NUR ---
Assessment done.no resp.distress.no pain voiced.lyeing in the bed.bed alarm on.voided in urinal.bed locked and in lowest position.phone and call light within reach.instructed to call for assistance as needed.
[2019-02-19] MEDS: ATORVASTATIN 40 MG TAB PO SCH (21:06)
[2019-02-20] VITALS (7 sets, daily range): BP systolic 99–157; BP diastolic 52–85
[2019-02-20 06:22] LABS: BASOPHILS % 0.3 % (0.0-1.0); EOSINOPHILS # (AUTO) 0.2 (0.0-0.4); EOSINOPHILS % 2.6 % (0.0-6.0); HEMATOCRIT 39.4 % (38.2-49.6); HEMOGLOBIN 13.3 g/dL (14.0-18.0); LYMPHOCYTES % 14.9 % (18.0-39.1); MEAN CORPUSCULAR HEMOGLOBIN 29.2 pg (28-32); MEAN CORPUSCULAR HGB CONC 33.8 g/dL (31-35); MEAN CORPUSCULAR VOLUME 86.6 fL (81-99); MONOCYTES # (AUTO) 0.6 (0.2-0.8); MONOCYTES % 9.3 % (4.4-11.3); NEUTROPHILS # (AUTO) 4.8 (2.1-6.9); NEUTROPHILS % 72.4 % (38.7-80.0); PLATELET COUNT 131 x10e3/uL (140-360); RED BLOOD COUNT 4.55 x10e6/uL (4.3-5.7); RED CELL DISTRIBUTION WIDTH 12.7 % (11.7-14.4)
[2019-02-20 06:44] LABS: ANION GAP 12.8 mmol/L (8-16); BLOOD UREA NITROGEN 15 mg/dL (7-26); BUN/CREATININE RATIO 16 (6-25); CALCIUM 8.9 mg/dL (8.4-10.2); CARBON DIOXIDE 25 mmol/L (22-29); CHLORIDE 103 mmol/L (98-107); CREATININE, SERUM 0.93 mg/dL (0.72-1.25); EST GLOMERULAR FILTRATION RATE > 60 ML/MIN (60-); GLUCOSE 99 mg/dL (74-118); POTASSIUM 3.8 mmol/L (3.5-5.1); SODIUM 137 mmol/L (136-145)
--- NOTE | 2019-02-20 06:50 | NUR ---
Bed side shift report given to the on coming Rn.stable condition.
--- NOTE | 2019-02-20 07:00 | NUR ---
RECEIVED PATIENT AWAKE RESTING IN BED NO S/S OF DISTRESS. BED LOW, WHEELS LOCKED, SIDE RAILS X2. CALL LIGHT IN REACH WILL CONTINUE TO MONITOR PATIENT.
[2019-02-20] MEDS: EZETIMIBE 10 MG TAB PO SCH (08:48)
[2019-02-20] MEDS: ASPIRIN 325 MG TAB PO SCH (08:48)
[2019-02-20] MEDS: METOPROLOL SUCCINATE 25 MG TAB XL PO SCH (08:48)
[2019-02-20] MEDS: FUROSEMIDE INJ 10 MG/ML 4 ML VIAL IV SCH (08:48)
[2019-02-20] MEDS ORDERED: METOPROLOL SUCCINATE 50 MG TAB XL PO SCH (09:00)
--- NOTE | 2019-02-20 10:15 | NUR ---
PATIENT A/O X 2-3, INTERMITTENT CONFUSION AT TIMES. NO SIGNS OF DISTRESS. LUNG SOUNDS DIMINISHED TO AUSCULTATION, PATIENT ON RA NO SOB. LEFT HAND 20 GAUGE IV SL. IV INTACT AND PATENT. TELEMETRY #13 SR. 1+ NON-PITTING EDEMA TO BLE. PATIENT IS MAX ASSIST TO STAND. NO PAIN AT THIS TIME. CALL LIGHT IN REACH WILL CONTINUE TO MONITOR PATIENT.
--- NOTE | 2019-02-20 11:28 | Progress Note ---
DATE: Cardiology Progress Note SUBJECTIVE: No complaints today. Denies chest pain or shortness of breath. OBJECTIVE: VITAL SIGNS: Temperature 97.5, heart rate 64, blood pressure 142/68, respiratory rate 18, and O2 saturation 97%. GENERAL: In no acute distress, alert. NECK: No JVD. CHEST: Clear to auscultation. CARDIOVASCULAR: Regular rate and rhythm. Normal S1, S2. No S3 or S4. ABDOMEN: Soft. Bowel sounds positive. EXTREMITIES: Trace edema. SKIN: With sternotomy scar. CARDIOVASCULAR MEDICATIONS: Atorvastatin 80 mg at bedtime, Lovenox 40 mg subcu daily, Ezetimibe 10 mg daily, metoprolol succinate 25 mg daily, aspirin 81 mg daily, furosemide 40 mg daily. STUDIES: Reviewed. Creatinine 0.9, hemoglobin 13.3, and platelets 131. ASSESSMENT AND PLAN: An 83-year-old man with cognitive decline, particularly hallucinations and recurrent confusion spells. Past history of coronary artery disease, status post aortocoronary bypass, hypertension, dyslipidemia, and chronic diastolic heart failure. RECOMMEND: 1. Continue diuretics as per volume status continues to improve. 2. Continue current antihypertensive medications as well as statin and antiplatelet therapy. Ras Perales MD AFSuzi/MODDre /[id number]
[2019-02-20] MEDS ORDERED: RISPERIDONE 0.5 MG TAB PO PRN (14:30)
--- NOTE | 2019-02-20 15:36 | NUR ---
Shannon, patient's partner is here. She states she takes care of him at home, has to assist him with moving around, using the bathroom. States it has been going on for > 6 months. States he intermittently has periods where he sees things/hallucinates, for about 4 months, since last hospitalization. She is the only one to care for him - his children are not involved. She works 40 hours a week. This CM gave her info about provider services through [facility] for some relief. Then Shannon gets upset when she asks nursing staff if they have called Dr. Ellis about seeing the patient. Explained to Shannon, he is here for chest pain, dizziness, the doctor did not order a urological consult. She calls Dr. Ellis's office but they just state ask nursing and also there is a KUB to be done outpatient. This CM spoke to Dr. Fay about KUB and mayi and updates, he is not ordering any other consults or tests, patient likely to dc in the AM.
--- NOTE | 2019-02-20 15:44 | Progress Note ---
DATE: Medicine Progress Note SUBJECTIVE: The patient seems to be at his baseline. He is alert, awake, and oriented x4. I took the nurse with me and it seems like he is back to his baseline. No overnight events. No evidence of any visual or auditory hallucinations. PHYSICAL EXAMINATION: VITAL SIGNS: Temperature is 98.8, pulse 61, respiratory rate is 18, blood pressure 99/52, and pulse ox 96% on room air. GENERAL: Not in acute distress. Alert and oriented x3. Cooperative on examination. HEENT: Head; normocephalic, atraumatic. Eyes; pupils are equal, round, and reactive to light bilaterally. Extraocular movements intact bilaterally. Throat; no evidence of erythema or exudates in the posterior pharynx. Has poor dentition. NECK: Supple. Good range of motion. PULMONARY: Clear to auscultation bilaterally. No wheezing, no rales, no rhonchi, no crackles appreciated. CARDIOVASCULAR: Positive S1 and S2. No murmurs, rubs, or gallops appreciated. ABDOMEN: Soft, nondistended, and nontender to palpation. Bowel sounds present. MUSCULOSKELETAL: Strength is 4/5 throughout. No evidence of any muscle deficits on examination. No weakness appreciated. NEUROLOGIC: Cranial nerves II through XII grossly intact. No evidence of any neurological deficits on exam. He is awake, alert, oriented x3. SKIN: Intact. Warm to touch. Good cap refill. PSYCHIATRIC: Normal affect and mood. EXTREMITIES: No edema. Good range of motion throughout. LABORATORY FINDINGS: Show white count 6.6, hemoglobin 13, hematocrit is 39, and platelets of 131. Chemistries reviewed and stable. Urinalysis was negative. IMAGING STUDIES: CT brain shows no acute intracranial hemorrhage or cortical infarcts. IMPRESSION: 1. Atypical chest pain. 2. Hypertension. 3. Hyperlipidemia. 4. Type 2 diabetes. 5. Chronic left-sided weakness from prior cerebrovascular accident. 6. Visual hallucinations, concerning for underlying dementia with behavioral disturbances, now resolved. PLAN: At this time, it seems that the patient is currently back at his normal baseline. I did consult Psychiatry, to come and evaluate him. We are still pending their evaluation. We will continue with same plan of care and monitor very closely. He is working with PT and OT. No changes in his medication regimen. Get a.m. labs. There is no evidence or any source of infection at this time. He seems like to be is at his baseline. Case Management did speak to the wound care physician. She will be here later today to see what this patient's true baseline is. Otherwise, we will continue same plan of care and monitor very closely and await for Psychiatry evaluation. MD EVANGELINA Reyes/MODDre /[id number]
[2019-02-20] MEDS: ENOXAPARIN SOD INJ 40 MG/0.4 ML SYR SC SCH (16:44)
--- NOTE | 2019-02-20 19:20 | NUR ---
Patient visited in room during nursing rounds. Patient alert and oriented x2-3 (i.e. pt tends to forget recent memory but easy to re-orient). No c/o pain or any discomfort at this time. Pt extremely weak and non-ambulatory at this time. Left eye partially closed and notable left sided weakness. Call moyer within reach.
[2019-02-20] MEDS: ATORVASTATIN 40 MG TAB PO SCH (21:00)
--- NOTE | 2019-02-20 21:12 | Consultation ---
DATE OF CONSULTATION: 02/20/2019 Psychiatric Consultation REASON FOR CONSULTATION: To evaluate the patient's psychosis and hallucination. HISTORY OF PRESENT ILLNESS: The patient is an 83-year-old male, admitted to the hospital for chest pain and weakness. Psychiatric consultation is called to evaluate the patient's psychosis and hallucination. As per medical record, the patient has a history of hypertension, hyperlipidemia, diabetes, UTI, BPH, chronic hip pain. Upon evaluation today, the patient is found to be in the room. He is alert, awake, and oriented to situation. He is not confused. He is calm and cooperative. He is using his cell phone. He states that he is in the hospital for chest pain. He denies any depression or anxiety, but admits to feeling helpless. He denies any suicidal or homicidal ideation. He denies any hallucination, but admits to periods of confusion on Wednesday and did not know where he was. Now, he reports sleep and eating okay. The patient did mention that he had in the past felt depressed and thought that life was not worth living. PAST PSYCHIATRIC HISTORY: The patient denies any past psychiatric history. He denies past suicide attempts. He denies alcohol or drug use. FAMILY HISTORY: Denies. SOCIAL HISTORY: The patient lives with his daughter. MENTAL STATUS EXAMINATION: The patient is an elderly male. He is alert, awake, and oriented to situation. Mood is fair. Affect is congruent with mood. Denies any suicidal or homicidal ideation. Denies any hallucination. Thought process is concrete. No delusion elicited. Insight and judgment are fair. Memory appears to be grossly intact. CURRENT MEDICATIONS: 1. Metoprolol. 2. Furosemide. 3. Zetia. 4. Aspirin. 5. Tylenol No.3. 6. Atorvastatin. 7. Lovenox. 8. Ondansetron. 9. Morphine. 10. Acetaminophen. 11. Hydralazine. 12. Dextrose. CURRENT LABS: WBC 6.65, RBC 4.55, hemoglobin 13.3, hematocrit 39.4, platelets 131. Sodium 137, potassium 3.8, chloride 103, CO2 of 25, BUN 15, creatinine 0.93. ASSESSMENT: 1. Adjustment disorder with mixed mood. 2. Rule out delirium. PLAN: 1. Add Wellbutrin 75 mg p.o. daily. 2. Add Risperdal 0.5 mg p.o. q.6 hours p.r.n. for agitation and psychosis. 3. Monitor for mood. 4. Supportive therapy. Thank you for this consultation. Dictated by Cornelia Yanez PA-C Jonathan Pham MD QTV/MODL /[id number]
[2019-02-21] VITALS: BP 138/76
--- NOTE | 2019-02-21 01:45 | NUR ---
IV on left hand pulled out by patient. Pt stated he thought he was in his truck. Patient re-oriented back to reality that he was in the hospital. Will re-start a new IV.
--- NOTE | 2019-02-21 01:50 | NUR ---
New IV (22g) started on right forearm and whole IV site covered with kerlix.
[2019-02-21 04:00] VITALS: BP 175/78
--- NOTE | 2019-02-21 07:00 | NUR ---
RECEIVED PATIENT AWAKE RESTING IN BED NO S/S OF DISTRESS. BED LOW, WHEELS LOCKED, SIDE RAILS X2. CALL LIGHT IN REACH WILL CONTINUE TO MONITOR PATIENT.
[2019-02-21 07:17] VITALS: BP 141/88
[2019-02-21 07:32] VITALS: BP 141/88
[2019-02-21] MEDS: ASPIRIN 325 MG TAB PO SCH (08:17)
[2019-02-21] MEDS: FUROSEMIDE INJ 10 MG/ML 4 ML VIAL IV SCH (08:17)
[2019-02-21] MEDS: ACETAMINOPHEN/CODEINE 300MG - 30MG TAB PO PRN (08:18)
[2019-02-21] MEDS: METOPROLOL SUCCINATE 25 MG TAB XL PO SCH (08:18)
[2019-02-21] MEDS: EZETIMIBE 10 MG TAB PO SCH (08:18)
[2019-02-21] MEDS ORDERED: BUPROPION HCL 75 MG TAB PO SCH (09:00)
[2019-02-21] MEDS ORDERED: BUPROPION HCL75 MG PO (11:12)
[2019-02-21 11:19] VITALS: BP 140/69
--- NOTE | 2019-02-21 12:10 | NUR ---
Spoke with patient, per his partner he has used [facility] before. patient signs choice for [facility] - clinicals faxed to [phone], [phone]
--- NOTE | 2019-02-21 15:24 | Progress Note ---
DATE: Medicine Progress Note ADDENDUM: In the previous progress note, they state that the patient had a history of a cerebrovascular accident with left-sided weakness and that it is chronic. After further investigation with the advanced nursing professor, patient, and staff, the patient is currently at his baseline. I discussed this with the advanced nursing professor by phone. She reports that this is his baseline. There were no reports of any history of CVA in the past. Please note this correction and in the chart. Once again, the patient is currently at his baseline with no changes. Overall, he is generalized weak and has some weakness. According to the advanced nursing professor, he is currently at his baseline with no changes. MD EVANGELINA Reyes/ANDRES /[id number]
[2019-02-21 15:28] VITALS: BP 160/83
--- NOTE | 2019-02-21 15:34 | Discharge Summary ---
FINAL DISCHARGE DIAGNOSES: 1. Atypical chest pain. 2. Hypertension. 3. Hyperlipidemia. 4. Type 2 diabetes. 5. Adjustment disorder with mixed mood. CONSULTANTS: Psychiatry, Cardiology. PHYSICAL EXAMINATION: VITAL SIGNS: Temperature is 99.4, pulse 85, respiratory rate is 18, blood pressure 140/69, pulse ox 98% on room air. LABORATORY DATA: Labs show white count 6.6, hemoglobin 13.3, hematocrit 39, and platelets of 131. Sodium 137, potassium 3.8, chloride 103, bicarb 25, anion gap of 12, BUN 15, creatinine 0.93, glucose is 99, calcium is 8.9. Troponins were all negative. Albumin was 3.5. LFTs within normal range. Urinalysis was negative. MICROBIOLOGY: None. IMAGING STUDIES: Chest x-ray, interval development of bilateral interstitial edema. CT brain shows no acute intracranial hemorrhage or cortical infarct. Mild white matter chronic microischemic changes. HOSPITAL COURSE: This is an 83-year-old male, currently at baseline, very weak, generalized weakness, who lives with a national van owner operator, came into the ED with reports of chest pain. The patient was admitted under observation. Cardiology was consulted. Cardiac enzymes were found to be negative. EKG showed no acute findings. Cardiac telemetry showed no evidence of any alarms. The patient was evaluated by Cardiology thoroughly and recommended no further workup at this time. The patient was cleared for discharge by Cardiology. The patient reports that he had some hallucinations while here in the hospital stay, prompting a Psychiatry consultation. After further evaluation by Psychiatry, it was felt that the patient likely has adjustment disorder with mixed mood. The patient was started on Wellbutrin and will be discharged on oral Wellbutrin. Risperidone as needed for agitation or psychosis p.r.n. The patient while here was doing well with no other issues. He was recommended to follow up as an outpatient with Psychiatry as an outpatient for further management and care. The patient does not have a history of left-sided weakness from a prior CVA. The patient has never had a CVA that I am aware of after talking to the national van owner operator. The patient is currently at baseline according to the national van owner operator. The patient is currently at his baseline with no other issues. He did work with PT and OT as well. The patient did not want to go to a fdc facility. Instead, the patient was to go home with a national van owner operator. The patient was cleared for discharge by all consultants. The patient is back to normal baseline. On the day of discharge, vital signs were stable, labs reviewed and stable. The patient was seen, evaluated, examined thoroughly on the day of discharge. No other complaints. The patient verbalized understanding and agrees to plan of care to followup appointment as an outpatient with primary care physician in 1 week and psychiatrist and financial foundations representative in 2 weeks' time. MEDICATIONS: See med reconciliation form. DISPOSITION: Home. CONDITION: Stable. DIET: Heart healthy. DISCHARGE INSTRUCTIONS: In the event of any worsening symptoms, the patient was advised to come back to the ED for further evaluation. TIME SPENT: Discharge summary took greater than 35 minutes. Once again, according to the patient and the national van owner operator, the patient has not had a history of a prior CVA in the past. He is currently at his baseline. MD EVANGELINA Reyes/ANDRES /[id number]
--- NOTE | 2019-02-21 15:42 | NUR ---
Patient going home with caregiver/partner today, awaiting partner to get off of work
--- NOTE | 2019-02-21 15:49 | NUR ---
REMOVED PATIENTS IV. CATHETER TIP INTACT AND PRESSURE DRESSING APPLIED.
--- NOTE | 2019-02-21 15:50 | NUR ---
PATIENT DISCHARGED FROM FACILITY. PATIENT GATHERED ALL PERSONAL BELONGINGS, DISCHARGE INSTRUCTIONS, AND FOLLOW UP INFORMATION. PATIENT LEFT UNIT IN WHEELCHAIR AND WENT HOME VIA PRIVATE AUTO. NO SIGNS OF DISTRESS LEAVING FACILITY.
== END 2019-02-21 15:50 | disposition home or self-care (01) ==
LOC: ER 13:44 → ERHOLD 17:03 → MED/SURG 17:27
PROVIDERS: ADMIT Internal Medicine; ATTEND Internal Medicine
DX: R07.89 Other chest pain (principal); I10 Essential (primary) hypertension; E78.5 Hyperlipidemia, unspecified; E11.9 Type 2 diabetes mellitus without complications; N40.0 Benign prostatic hyperplasia without lower urinary tract symptoms; F03.91 Unspecified dementia, unspecified severity, with behavioral disturbance; I25.10 Atherosclerotic heart disease of native coronary artery without angina pectoris; Z95.1 Presence of aortocoronary bypass graft; I11.0 Hypertensive heart disease with heart failure; I50.32 Chronic diastolic (congestive) heart failure; F43.23 Adjustment disorder with mixed anxiety and depressed mood
CPT/HCPCS: 36415 ×3; 70450; 71046; 80048 ×3; 80053; 81001; 82550 ×2; 82553 ×2; 83880; 84484 ×2; 85025 ×3; 93005; 93306; 97162; 97530; 99284; G0378 ×4; J1200; J1650 ×3; J1940 ×3; J2270; J2405; J7030

== ENCOUNTER 2019-05-30 10:48 | Observation (INO) | payer MEDICARE ==
[~2019-05-30] VITALS: Ht 177.8 cm; Wt 97.5 kg
[~2019-05-30 10:48] MED LIST changes: +BUPROPION HCL75 MG PO; +NORCO 5-325 TA1 EACH PO
[2019-05-30] MEDS ORDERED: ASPIRIN 81 MG CHEW TAB PO ONE ×2 (11:00→12:30)
[2019-05-30] MEDS ORDERED: DIPHENHYDRAMINE HCL INJ 50 MG/ML VIAL IV ONE (11:15)
[2019-05-30 11:16] LABS: BASOPHILS % 0.6 % (0.0-1.0); EOSINOPHILS # (AUTO) 0.4 (0.0-0.4); EOSINOPHILS % 5.8 % (0.0-6.0); HEMATOCRIT 41.3 % (38.2-49.6); HEMOGLOBIN 13.5 g/dL (14.0-18.0); LYMPHOCYTES # (AUTO) 1.3 (1.0-3.2); LYMPHOCYTES % 19.3 % (18.0-39.1); MEAN CORPUSCULAR HEMOGLOBIN 29.3 pg (28-32); MEAN CORPUSCULAR HGB CONC 32.7 g/dL (31-35); MEAN CORPUSCULAR VOLUME 89.6 fL (81-99); MONOCYTES # (AUTO) 0.8 (0.2-0.8); MONOCYTES % 12.6 % (4.4-11.3); NEUTROPHILS % 61.1 % (38.7-80.0); PLATELET COUNT 147 x10e3/uL (140-360); RED BLOOD COUNT 4.61 x10e6/uL (4.3-5.7); RED CELL DISTRIBUTION WIDTH 13.2 % (11.7-14.4)
[2019-05-30] MEDS ORDERED: DIPHENHYDRAMINE HCL INJ 50 MG/ML VIAL ONE (11:19)
[2019-05-30 11:30] LABS: INR 0.97; PROTHROMBIN TIME 13.5 seconds (11.9-14.5)
[2019-05-30 11:39] LABS: ALANINE AMINOTRANSFERASE 16 IU/L (0-55); ALBUMIN 3.6 g/dL (3.5-5.0); ALBUMIN/GLOBULIN RATIO 1.1 (0.8-2.0); ALKALINE PHOSPHATASE 86 IU/L (40-150); ANION GAP 9.3 mmol/L (8-16); BLOOD UREA NITROGEN 16 mg/dL (7-26); BUN/CREATININE RATIO 16 (6-25); CALCIUM 9.1 mg/dL (8.4-10.2); CARBON DIOXIDE 30 mmol/L (22-29); CHLORIDE 104 mmol/L (98-107); CREATINE KINASE 63 IU/L (30-200); CREATININE, SERUM 1.03 mg/dL (0.72-1.25); EST GLOMERULAR FILTRATION RATE > 60 ML/MIN (60-); GLUCOSE 105 mg/dL (74-118); POTASSIUM 4.3 mmol/L (3.5-5.1); SODIUM 139 mmol/L (136-145)
--- NOTE | 2019-05-30 12:01 | Diagnostic Imaging Report ---
EXAMINATION: PA and lateral views of the chest. COMPARISON: 12/07/2018, 02/18/2019 CLINICAL HISTORY: Chest pain DISCUSSION: The lungs are well inflated. No focal airspace consolidation, pleural effusion, or pneumothorax. Median sternotomy wires unchanged. Borderline enlargement of the cardiac silhouette without overt pulmonary edema. No acute osseous abnormalities. Multilevel degenerative disc changes of the thoracic spine. IMPRESSION: Borderline enlargement of the cardiac silhouette without overt pulmonary edema. Signed by: Dr. Ahbi Lopez M.D. on 05/30/2019 11:58 AM
[2019-05-30] MEDS ORDERED: MORPHINE SULFATE INJ 4 MG/ML INJ 1ML IV PRN (12:30)
[2019-05-30] MEDS ORDERED: HYDRALAZINE HCL 20 MG/ML VIAL IV PRN (12:30)
[2019-05-30] MEDS ORDERED: ONDANSETRON HCL INJ 2MG/ML 2ML 2 MG/ML VIAL IV PRN (12:30)
[2019-05-30 12:39] LABS: CLARITY,URINE CLEAR (CLEAR); COLOR,URINE YELLOW (YELLOW)
[2019-05-30 12:40] LABS: BILIRUBIN,URINE SMALL (NEGATIVE); KETONES,URINE NEGATIVE (NEGATIVE); LEUKOCYTE ESTERASE ,URINE NEGATIVE (NEGATIVE); NITRITE,URINE NEGATIVE (NEGATIVE); PROTEIN,URINE DIPSTICK NEGATIVE (NEGATIVE); URINE UROBILINOGEN 0.2 mg/dL (0.2 - 1)
[2019-05-30 13:06] LABS: BACTERIA,URINE FEW /HPF; EPITHELIAL CELLS,URINE RARE /LPF; RBC,URINE >50 /HPF (0-5); TRANSITIONAL EPI CELLS,URINE FEW; WBC,URINE (MAN) 0-5 /HPF (0-5)
--- NOTE | 2019-05-30 13:27 | NUR ---
patient arrived to room 206. in stable condition. no complaints.
--- NOTE | 2019-05-30 14:24 | Consultation ---
DATE OF CONSULTATION: 05/30/2019 Cardiac consultation CONSULTING PHYSICIAN: Ras Perales MD., Interventional Cardiology. REASON FOR CONSULTATION: Chest pain. HISTORY OF PRESENT ILLNESS: Mr. Leiva is a pleasant 83-year-old man, well known to our service with a history of hypertension, dyslipidemia, type 2 diabetes mellitus, nephrolithiasis, BPH, chronic back pain, coronary artery disease, status post aortocoronary bypass, who presents to [facility] with complaints of chest discomfort. Chest discomfort was pressure-like, midsternal, occurring while at rest, nonradiating, lasted 30 minutes, occurred today and was resolved without recurrence since following initial medications for blood pressure. He was reportedly noted to have systolic blood pressure over 200s. Currently asymptomatic. He continues to have lower extremity edema. Blood pressure has decreased to 142/66. REVIEW OF SYSTEMS: A 12-system review is negative except for as noted above and back discomfort. The patient has decubitus wound present on admission. PAST MEDICAL HISTORY: As per HPI. ALLERGIES: NO KNOWN DRUG ALLERGIES. SOCIAL HISTORY: Good family support, living currently with Shannon, family member at home. No smoking, alcohol, or drugs. FAMILY HISTORY: Noncontributory. PHYSICAL EXAMINATION: VITAL SIGNS: Temperature 98.1, heart rate 65, respiratory rate 12, blood pressure 142/66, O2 saturation 100% on nasal cannula 2 L/minute. GENERAL: No acute distress. Alert. NECK: No JVD. CHEST: Clear to auscultation. CARDIOVASCULAR: Regular rate and rhythm. Normal S1, S2. No S3 or S4. No murmurs, no rubs. ABDOMEN: Soft. Bowel sounds positive. EXTREMITIES: 2+ edema to both lower extremities. CARDIOVASCULAR MEDICATIONS: Reviewed. On, 1. Metoprolol succinate 50 mg daily. 2. Zetia 10 mg daily. 3. Atorvastatin 80 mg at bedtime. 4. Aspirin 325 mg daily at home. STUDIES: Reviewed. White blood cells 6.5, hemoglobin 13.5, platelets 147. INR 0.97. Sodium 139, potassium 4.3, chloride 104, bicarbonate 30, BUN 16, creatinine 1.03. Troponin I less than 0.001. BNP 69.7. Total protein 6.8, albumin 3.6, AST 16, ALT 16, glucose 105. Chest x-ray, borderline enlargement of cardiac silhouette without overt pulmonary edema. Multilevel degenerative disk disease changes to thoracic spine. ASSESSMENT AND PLAN: An 83-year-old man with: 1. Acute on chronic diastolic heart failure, hypertensive urgency, and chest pain in the setting of the above. 2. Diabetes mellitus. 3. Dyslipidemia. 4. History of coronary artery disease, status post aortocoronary bypass. 5. Chronic back discomfort. 6. Deconditioning. RECOMMEND: 1. Resume metoprolol, atorvastatin, and Zetia. 2. Lasix 40 mg IV b.i.d. 3. Trend cardiac enzymes. 4. Obtain echocardiogram. 5. Keep on telemetry while in-house. 6. Hydralazine p.r.n. I thank, Dr. Fay for the opportunity to participate in the care of Mr. Leiva. Please feel free to call with any questions. MD GIANFRANCO Ball/ANDRES /[id number]
[2019-05-30] MEDS ORDERED: ACETAMINOPHEN 325 MG TAB PO PRN (15:15)
--- NOTE | 2019-05-30 15:28 | NUR ---
patient's caregiver at home- Shannon [phone]
[2019-05-30 16:07] VITALS: BP 176/77
[2019-05-30] MEDS: DIPHENHYDRAMINE HCL 25 MG CAP PO PRN (16:41)
[2019-05-30] MEDS: FUROSEMIDE INJ 10 MG/ML 4 ML VIAL IV SCH (16:41)
[2019-05-30] MEDS ORDERED: NYSTATIN 100,000 UNITS/GM CRM 30GM TUBE TOP SCH (17:00)
[2019-05-30] MEDS: NYSTATIN 15 GM POWDER UD BTL TOP SCH (17:14)
[2019-05-30 17:21] VITALS: BP 161/70
--- NOTE | 2019-05-30 17:26 | NUR ---
Dr. Oneal paged for patient's elevated BP. waiting for response at this time.
[2019-05-30] MEDS ORDERED: METOPROLOL SUCCINATE 50 MG TAB XL PO ONE (18:15)
[2019-05-30 18:25] LABS: CREATINE KINASE 52 IU/L (30-200)
--- NOTE | 2019-05-30 19:20 | NUR ---
Patient received sitting up in bed. AAO x 3. Patient had no complaints of pain. No signs of respiratory distress. Fall precautions implemented. Patient instructed to call for assistance when needed. Call light within reach.
[2019-05-30 20:00] VITALS: BP 147/67
[2019-05-30] MEDS ORDERED: ATORVASTATIN 40 MG TAB PO SCH (21:00)
[2019-05-30 22:20] VITALS: BP 147/67
[2019-05-31] VITALS: BP 148/72
[2019-05-31 04:00] VITALS: BP 138/60
[2019-05-31] MEDS: DIPHENHYDRAMINE HCL 25 MG CAP PO PRN (04:48)
--- NOTE | 2019-05-31 05:04 | NUR ---
Patient 's cardiac rhythm recorded 38 bpm for 6.2 secs per public health sanitarian technician. Dr. Jm Rodriguez paged. Patient appears asymptomatic. Awaiting call back.
--- NOTE | 2019-05-31 05:26 | NUR ---
New orders received from Dr. Oneal for Amlodipine 2.5 mg PO daily and to continue with administration of Metoprolol 50 mg PO daily. Will continue to monitor.
[2019-05-31 05:32] LABS: BASOPHILS % 0.6 % (0.0-1.0); EOSINOPHILS # (AUTO) 0.3 (0.0-0.4); EOSINOPHILS % 4.7 % (0.0-6.0); HEMATOCRIT 40.3 % (38.2-49.6); HEMOGLOBIN 13.3 g/dL (14.0-18.0); LYMPHOCYTES # (AUTO) 1.2 (1.0-3.2); LYMPHOCYTES % 16.8 % (18.0-39.1); MEAN CORPUSCULAR HEMOGLOBIN 29.4 pg (28-32); MEAN CORPUSCULAR VOLUME 89.2 fL (81-99); MONOCYTES # (AUTO) 0.6 (0.2-0.8); NEUTROPHILS # (AUTO) 4.8 (2.1-6.9); NEUTROPHILS % 68.2 % (38.7-80.0); PLATELET COUNT 146 x10e3/uL (140-360); RED BLOOD COUNT 4.52 x10e6/uL (4.3-5.7); RED CELL DISTRIBUTION WIDTH 13.1 % (11.7-14.4)
[2019-05-31 05:55] LABS: ALANINE AMINOTRANSFERASE 14 IU/L (0-55); ALBUMIN 3.3 g/dL (3.5-5.0); ALBUMIN/GLOBULIN RATIO 1.1 (0.8-2.0); ALKALINE PHOSPHATASE 81 IU/L (40-150); ANION GAP 8.7 mmol/L (8-16); BLOOD UREA NITROGEN 15 mg/dL (7-26); BUN/CREATININE RATIO 15 (6-25); CALCIUM 8.5 mg/dL (8.4-10.2); CARBON DIOXIDE 30 mmol/L (22-29); CHLORIDE 102 mmol/L (98-107); CREATININE, SERUM 0.98 mg/dL (0.72-1.25); EST GLOMERULAR FILTRATION RATE > 60 ML/MIN (60-); GLUCOSE 106 mg/dL (74-118); POTASSIUM 3.7 mmol/L (3.5-5.1); SODIUM 137 mmol/L (136-145)
[2019-05-31 06:20] LABS: CREATINE KINASE MB 1.5 ng/mL (0-5.0)
--- NOTE | 2019-05-31 06:55 | NUR ---
Patient resting comfortably. Walking rounds done. BSSR given to oncoming nurse.
--- NOTE | 2019-05-31 07:00 | NUR ---
RCD PT AT BED PT IS ALERT AND ORIENTED RESTING ON BED IV PATENT BY SALINE FLUSH BED LOW AND LOCKED CALL LIGHT IN REACH
[2019-05-31 07:48] VITALS: BP 124/70
[2019-05-31 08:53] VITALS: BP 124/70
[2019-05-31] MEDS ORDERED: AMLODIPINE BESYLATE 5 MG TAB PO SCH (09:00)
[2019-05-31] MEDS ORDERED: TAMSULOSIN HCL 0.4 MG CAP PO SCH (09:00)
[2019-05-31] MEDS ORDERED: POTASSIUM CHLORIDE 10MEQ EA PO SCH (09:00)
[2019-05-31] MEDS ORDERED: METOPROLOL SUCCINATE 50 MG TAB XL PO SCH (09:00)
[2019-05-31] MEDS ORDERED: EZETIMIBE 10 MG TAB PO SCH (09:00)
[2019-05-31] MEDS: FUROSEMIDE INJ 10 MG/ML 4 ML VIAL IV SCH (09:00)
[2019-05-31] MEDS ORDERED: ASPIRIN 325 MG TAB PO SCH (09:00)
[2019-05-31] MEDS: NYSTATIN 15 GM POWDER UD BTL TOP SCH (09:00)
--- NOTE | 2019-05-31 12:09 | Progress Note ---
DATE: 05/31/2019 Cardiology Progress Note SUBJECTIVE: In no recurrent chest pain. Denies shortness of breath. Leg edema improved. The patient requesting DC home soon. OBJECTIVE: VITAL SIGNS: Temperature 97.5, heart rate 51. On telemetry review, sinus bradycardia, attempted metoprolol 50 mg b.i.d. yesterday have decreased back to 50 mg once daily, which is with the patient's home dose given bradycardia holding parameters in place. Blood pressure 124/70, O2 saturation 98% on room air. GENERAL: No acute distress, alert. NECK: No JVD. No carotid bruit. CHEST: Clear to auscultation. CARDIOVASCULAR: Regular rate and rhythm. Normal S1 and S2. No S3, no S4. No murmurs, no rubs. ABDOMEN: Soft. Bowel sounds positive. EXTREMITIES: 1+ lower extremity edema bilaterally to lower extremities, improved compared to yesterday. CARDIOVASCULAR MEDICATIONS: Reviewed. Amlodipine 2.5 mg daily, Lasix 40 mg b.i.d., Zetia 10 mg daily, atorvastatin 80 mg at bedtime, metoprolol succinate 50 mg once daily, hydralazine 10 mg p.r.n. LABORATORY DATA: White blood cell 6.5, hemoglobin is 13.5, platelets 145, creatinine 0.98, potassium 3.7. Troponin I negative x3. ASSESSMENT: 1. Acute on chronic diastolic heart failure, echo reviewed, LVEF 55%-60%. 2. Hypertensive emergency. 3. Volume overload, improved. 4. Dyslipidemia. 5. Coronary artery disease, status post aortocoronary bypass. 6. Deconditioning. RECOMMENDATIONS: Continue current cardiovascular medications with the following change furosemide switched to 40 mg b.i.d. p.o. and metoprolol to 50 mg once daily extended release. Prescription for amlodipine 2.5 mg daily and Lasix 40 mg b.i.d. added to the patient's chart upon discharge. Outpatient followup advised within the following 2-4 weeks as needed based on COVID-19 pandemia recommendations at this time can offer telemedicine. The patient has established relationship in office and has been advised to call for appointment. Ras Perales MD AFV/MODL /[id number]
[2019-05-31 12:19] VITALS: BP 141/68
--- NOTE | 2019-05-31 12:34 | NUR ---
WOUND CARE NURSE INITIAL CONSULTATION. 83 YEAR OLD MALE ADMITTED TO [facility] WITH DX OF CHEST PAIN, HTN AND SACRAL WOUND UPON ASSESSMENT PT PRESENTS WITH 5X5 DENUDED AREAS TO LEFT BUTTOCK. NO S/S OF INFECTION PRESENT. THERE ARE NO OTHER AREAS OF CONCERN ARE NOTED AT THIS TIME. LABS: WBC: 7.08 ALB: 3.3 RECOMMENDATIONS. APPLY VENELEX OINTMENT TO LEFT BUTTOCK BID AND COVER WITH ALLEVYN FOAM. T PROVIDE PT WITH BILATERAL HEEL PROTECTORS AND PILLOW SUSPENSIONS. PROVIDE PT ALTERNATING LOW AIR LOSS MATTRESS. REPOSITION PT EVERY 2 HOURS AND PRN. THANKS FOR THIS CONSULTATION. Addendum: 05/31/19 at 1242 by Chioma Gautam RN Amended: Links added.
--- NOTE | 2019-05-31 14:00 | NUR ---
DC ROGERS BY ORDER 300 ML URINE IN THE BAG
[2019-05-31] MEDS ORDERED: FUROSEMIDE40 MG PO (14:02)
[2019-05-31] MEDS ORDERED: AMLODIPINE BESYL5 MG PO (14:03)
[2019-05-31] MEDS ORDERED: FLUCONAZOLE 100 MG TAB PO ONE (14:20)
--- NOTE | 2019-05-31 14:26 | Discharge Summary ---
FINAL DISCHARGE DIAGNOSES: 1. Chest pain, atypical in nature. 2. Hypertension. 3. Stage I buttock wound, very clean borders. No further workup needed. Has a small area of yeast, treated accordingly with nystatin powder. 4. Bed-bound at baseline. CONSULTANTS: Cardiology. PHYSICAL EXAMINATION: VITAL SIGNS: Temperature 98.7, pulse 52, respiratory rate 19, blood pressure 141/60, pulse ox 96% on room air. LABORATORY FINDINGS: Show white count is 7, hemoglobin 13, hematocrit 40, platelets of 146. Coagulation; PT 13, INR 0.97. Chemistry; sodium 137, potassium 3.7, chloride 102, bicarb 30, anion gap of 8.7, BUN is 15, creatinine is 0.98, glucose is 106. LFTs within normal range. Troponins were negative. Albumin 3.3. BNP was 69. Urinalysis, negative. MICROBIOLOGY: None. IMAGING STUDIES: Chest x-ray shows borderline enlargement of the cardiac silhouette without pulmonary edema. HOSPITAL COURSE: An 83-year-old male, comes into the ED with complaints of chest pain. The patient was admitted and Cardiology was consulted. Cardiac enzymes were found to be negative. EKG showed no acute findings. The patient maintained on cardioprotective medications with no issues. He was discharged on cardioprotective med as well as oral diuretics as per recommendations by Cardiology. Antihypertensive medications were adjusted accordingly. He was given a script for on discharge. He did have a stage I buttock wound very small area evaluated by the Wound Care nurse. They recommended some nystatin powder, which was applied while here in the hospital, was given nystatin powder bottle for discharge. He was also given oral Diflucan x1 dose while here in the hospital stay. Otherwise, he is doing well with no complaints. He is back to normal baseline with no other issues. He was ready for discharge to home. On the day of discharge, vital signs were stable, labs reviewed and stable. The patient seen and evaluated, examined thoroughly on the day of discharge. No other complaints. The patient verbalized understanding and agreed to plan of care. A followup appointment as an outpatient with primary care physician in 1 week and a culturist in 2 weeks' time. The patient is chest pain-free, stable with no other issues. He has been cleared for discharge by Cardiology. MEDICATIONS: See med reconciliation form. DISPOSITION: Home. CONDITION: Stable. DIET: Heart healthy. In the event of any worsening symptoms, the patient was advised to came back to the ED for further evaluation. Discharge summary took greater than 35 minutes. MD EVANGELINA Reyes/ANDRES /[id number]
--- NOTE | 2019-05-31 15:33 | NUR ---
PT WENT HOME IN SAFE CONDITION WITH HIS APPLICATIONS ARCHITECT
--- NOTE | 2019-05-31 15:46 | History and Physical ---
CHIEF COMPLAINT: Chest pain. HISTORY OF PRESENT ILLNESS: An 83-year-old male, multiple comorbidities. 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 He reports chest pain is substernal in nature with no radiation. He denies any shortness of breath, cough, congestion, or any other complaints. He did have some lower extremity edema, which improved with IV diuretics. The patient was evaluated by Cardiology. He does have some areas of buttock area of stage I wound, but being taken care of by wound care team. Does also have small area of yeast infection in that area. This has been ongoing for several days now. Denies any fever at home, cough, congestion, or any sick contacts. The patient is seen and evaluated at bedside on the medical floor. He is currently doing well with no other issues at this time. REVIEW OF SYSTEMS: Pertinent positive: Chest pain. The rest of 14-point review of systems have been reviewed with the patient and are negative. ALLERGIES: NO KNOWN DRUG ALLERGIES. HOME MEDICATIONS: He takes Tylenol No. 3, cholecalciferol, Benadryl, Colace, Lasix, Encinal, multivitamin, bupropion, Tradjenta, oxybutynin, fish oil, and Lipitor. PAST MEDICAL HISTORY: He is bedbound at baseline, urinary incontinence, type 2 diabetes, and depression. PAST SURGICAL HISTORY: Reports none. FAMILY HISTORY: Hypertension and diabetes. SOCIAL HISTORY: No drugs. No alcohol. Does not smoke. Good social support. 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 PHYSICAL EXAMINATION: VITAL SIGNS: Temperature is 98.7, pulse 52, respiratory rate is 19, blood pressure 141/68, and pulse ox 96% on room air. GENERAL: Not in acute distress. Alert and oriented x3. Cooperative on examination. HEENT: Head; normocephalic, atraumatic. Eyes; pupils are equal, round, and reactive to light bilaterally. Extraocular movements intact bilaterally. Throat; no evidence of erythema or exudates in the posterior pharynx. Has poor dentition. NECK: Supple. Good range of motion. PULMONARY: Clear to auscultation bilaterally. No wheezing, no rales, no rhonchi, no crackles appreciated. CARDIOVASCULAR: Positive S1 and S2. No murmurs, rubs, or gallops appreciated. ABDOMEN: Soft, nondistended, and nontender to palpation. Bowel sounds present. MUSCULOSKELETAL: Strength is 5/5 throughout. No evidence of any muscle deficits on examination. No weakness appreciated. NEUROLOGIC: Cranial nerves 2 through 12 grossly intact. No evidence of any neurological deficits on exam. SKIN: Intact. Warm to touch. Good cap refill. PSYCHIATRIC: Normal affect and mood. EXTREMITIES: No edema. Good range of motion throughout. LABORATORY FINDINGS: Show white count 7, hemoglobin 13, hematocrit is 40, and platelets of 146. Coagulation; PT 13 and INR 0.97. Sodium 137, potassium is 3.7, chloride 102, bicarb 30, anion gap of 8.7, BUN 15, creatinine is 0.98, glucose 106, and calcium 8.5. LFTs within normal range. Troponins were all negative. Total protein 6.3 and albumin is 3.3. Urinalysis negative. MICROBIOLOGY: None. IMAGING STUDIES: Chest x-ray, borderline enlargement of the cardiac silhouette without pulmonary edema. IMPRESSION: 1. Chest pain, rule out likely atypical in nature. 2. History of hyperlipidemia. 3. Bedbound at baseline. 4. Stage I buttock wound with small areas of yeast. 5. Hypertension. PLAN: At this time, trend troponins. Continue cardioprotective medications, oral Lasix. Cardiology has been consulted. Put nystatin powder on the area of the stage I wound, which is a very small area. Resume same home medications. Monitor overnight. Repeat labs in the morning. If stable, discharge tomorrow and cleared by Cardiology will discharge. MD EVANGELINA Reyes/ANDRES /[id number]
--- NOTE | 2019-05-31 16:33 | NUR ---
Nutrition Screen Note RD Recommendation for Physician: -Continue current diet as ordered Plan of Care: RD following, monitoring for tolerance and adequacy Nutrition reason for involvement: Nutrition Risk Trigger MST score 2 Primary Diagnose(s): chest pain, HTN, and sacral wound PMH: hypertension, dyslipidemia, type 2 diabetes mellitus, nephrolithiasis, BPH, chronic back pain, coronary artery disease, status post aortocoronary bypass Ht: 70 in Wt:215 lb BMI: 30.8 kg/m2 IBW:[address] Assessment: (05/30) Chart reviewed. Labs and meds reviewed. Pt is an 83 year old male admitted with chest pain, HTN, and sacral wound. Per wound care note, pt has denuded areas to left buttocks. Pt reports he has been eating all of his meals. Pt does not have a weight in chart for this admission. Last recorded weight was 215 lbs in February 2019. Pt mentioned he usually weighs 210 lbs. No N/V, but pt reports constipation. Will continue to monitor. Current Diet: cardiac Malnutrition Evaluation (05/31/19) The patient does not meet criteria for a specified degree of malnutrition at this time. Will re-evaluate at follow-up as appropriate. Diet Education Needs Assessment: RD is available for diet education as needed. Nutrition Care Level: low Signed: Danyell Gordon, RD, LD
== END 2019-05-31 15:33 | disposition home or self-care (01) ==
LOC: ER 10:48 → ERHOLD 12:26 → MED/SURG2 13:45
PROVIDERS: ADMIT Internal Medicine; ATTEND Internal Medicine
DX: I11.0 Hypertensive heart disease with heart failure (principal); R07.89 Other chest pain; L89.301 Pressure ulcer of unspecified buttock, stage 1; B37.2 Candidiasis of skin and nail; Z74.01 Bed confinement status; I50.33 Acute on chronic diastolic (congestive) heart failure; I25.10 Atherosclerotic heart disease of native coronary artery without angina pectoris; G89.29 Other chronic pain; E11.9 Type 2 diabetes mellitus without complications; Z95.1 Presence of aortocoronary bypass graft; N40.0 Benign prostatic hyperplasia without lower urinary tract symptoms; M54.9 Dorsalgia, unspecified
CPT/HCPCS: 36415 ×2; 51700; 71046; 80053 ×2; 81001; 82550 ×2; 82553 ×2; 82948 ×2; 83880; 84484 ×2; 85025 ×2; 85610; 93005; 93306; 99284; G0378 ×2; J1200; J1940 ×2; 99251

== ENCOUNTER 2020-02-25 15:23 | Emergency (ER) | payer MEDICARE ==
[~2020-02-25] VITALS: Ht 177.8 cm; Wt 97.5 kg
[~2020-02-25 15:23] MED LIST changes: +AMLODIPINE BESYL5 MG PO; +FUROSEMIDE40 MG PO
[2020-02-25] MEDS ORDERED: KEFLEX500 MG PO (16:14)
== END 2020-02-25 17:43 | disposition home or self-care (01) ==
LOC: ER 15:30
DX: L89.312 Pressure ulcer of right buttock, stage 2 (principal); L03.317 Cellulitis of buttock; I10 Essential (primary) hypertension; E11.9 Type 2 diabetes mellitus without complications; I50.9 Heart failure, unspecified; I25.10 Atherosclerotic heart disease of native coronary artery without angina pectoris; I25.2 Old myocardial infarction; Z95.1 Presence of aortocoronary bypass graft
CPT/HCPCS: 99284

== ENCOUNTER 2020-03-22 08:11 | Emergency (ER) | payer MEDICARE ==
[~2020-03-22] VITALS: Ht 177.8 cm; Wt 94.3 kg
[~2020-03-22 08:11] MED LIST changes: +KEFLEX500 MG PO
[2020-03-22 10:22] LABS: BASOPHILS % 0.2 % (0.0-1.0); EOSINOPHILS # (AUTO) 0.7 (0.0-0.4); EOSINOPHILS % 7.2 % (0.0-6.0); HEMATOCRIT 41.2 % (38.2-49.6); HEMOGLOBIN 13.4 g/dL (14.0-18.0); LYMPHOCYTES # (AUTO) 0.9 (1.0-3.2); LYMPHOCYTES % 9.5 % (18.0-39.1); MEAN CORPUSCULAR HEMOGLOBIN 28.5 pg (28-32); MEAN CORPUSCULAR HGB CONC 32.5 g/dL (31-35); MEAN CORPUSCULAR VOLUME 87.5 fL (81-99); MONOCYTES # (AUTO) 0.7 (0.2-0.8); NEUTROPHILS # (AUTO) 7.2 (2.1-6.9); NEUTROPHILS % 75.8 % (38.7-80.0); PLATELET COUNT 144 x10e3/uL (140-360); RED BLOOD COUNT 4.71 x10e6/uL (4.3-5.7)
[2020-03-22 10:35] LABS: ALBUMIN 3.2 g/dL (3.5-5.0); CREATININE, SERUM 1.43 mg/dL (0.72-1.25)
[2020-03-22 10:40] LABS: CREATINE KINASE MB 1.1 ng/mL (0-5.0)
[2020-03-22] MEDS ORDERED: IMODIUM A-D2 M2 PO (11:54)
[2020-03-22 13:08] VITALS: BP 146/82
== END 2020-03-22 13:10 | disposition home or self-care (01) ==
LOC: ER 08:14
DX: R19.7 Diarrhea, unspecified (principal); I10 Essential (primary) hypertension; E11.9 Type 2 diabetes mellitus without complications; I50.9 Heart failure, unspecified; I25.10 Atherosclerotic heart disease of native coronary artery without angina pectoris; Z11.52 Encounter for screening for COVID-19; I25.2 Old myocardial infarction; Z87.442 Personal history of urinary calculi
CPT/HCPCS: 36415; 80053; 82550; 82553; 84484; 85025; 99283; U0002

== ENCOUNTER 2020-04-01 11:54 | Emergency (ER) | payer MEDICARE ==
[~2020-04-01 11:54] MED LIST changes: +IMODIUM A-D2 M2 PO
[2020-04-01 14:26] VITALS: BP 134/75
== END 2020-04-01 14:27 | disposition home or self-care (01) ==
LOC: ER 11:58
DX: S30.810A Abrasion of lower back and pelvis, initial encounter (principal); W18.39XA Other fall on same level, initial encounter; Y93.01 Activity, walking, marching and hiking; Y92.008 Other place in unspecified non-institutional (private) residence as the place of occurrence of the external cause; I10 Essential (primary) hypertension; E11.9 Type 2 diabetes mellitus without complications; I50.9 Heart failure, unspecified; I25.10 Atherosclerotic heart disease of native coronary artery without angina pectoris; I25.2 Old myocardial infarction; Z95.1 Presence of aortocoronary bypass graft
CPT/HCPCS: 99282

== ENCOUNTER 2020-08-23 21:46 | Emergency (ER) | payer MEDICARE ==
[~2020-08-23] VITALS: Ht 177.8 cm; Wt 90.7 kg
[2020-10-12] MEDS ORDERED: COLACE100 MG PO (12:58)
[2020-10-12] MEDS ORDERED: HYDRALAZINE HCL25 MG PO (12:58)
[2020-10-12] MEDS ORDERED: SIMETHICONE80 MG PO (12:58)
[2020-10-12] MEDS ORDERED: METOPROLOL TART50 MG PO (12:58)
== END 2020-08-23 23:44 | disposition home or self-care (01) ==
LOC: ER 22:39
DX: L89.154 Pressure ulcer of sacral region, stage 4 (principal); I10 Essential (primary) hypertension; E11.9 Type 2 diabetes mellitus without complications; I50.9 Heart failure, unspecified; I25.10 Atherosclerotic heart disease of native coronary artery without angina pectoris; I25.2 Old myocardial infarction; Z95.1 Presence of aortocoronary bypass graft; Z87.442 Personal history of urinary calculi
CPT/HCPCS: 99282

== ENCOUNTER 2020-09-02 17:16 | Inpatient (IN) | payer MEDICARE ==
[~2020-09-02] VITALS: Ht 177.8 cm; Wt 90.7 kg
[2020-09-02] MEDS ORDERED: CEFEPIME 1 GM in SODIUM CHLORIDE 0.9% 50ML 50 ML IV STA (18:00)
[2020-09-02 18:10] LABS: BASOPHILS % 0.3 % (0.0-1.0); EOSINOPHILS # (AUTO) 0.2 (0.0-0.4); EOSINOPHILS % 3.1 % (0.0-6.0); HEMOGLOBIN 14.3 g/dL (14.0-18.0); LYMPHOCYTES # (AUTO) 0.2 (1.0-3.2); LYMPHOCYTES % 3.1 % (18.0-39.1); MEAN CORPUSCULAR HGB CONC 31.8 g/dL (31-35); MEAN CORPUSCULAR VOLUME 88.1 fL (81-99); MONOCYTES # (AUTO) 0.8 (0.2-0.8); MONOCYTES % 10.2 % (4.4-11.3); NEUTROPHILS # (AUTO) 6.4 (2.1-6.9); PLATELET COUNT 149 x10e3/uL (140-360); RED BLOOD COUNT 5.11 x10e6/uL (4.3-5.7); RED CELL DISTRIBUTION WIDTH 13.6 % (11.7-14.4)
[2020-09-02 18:28] LABS: ALANINE AMINOTRANSFERASE 12 IU/L (0-55); ALBUMIN 3.2 g/dL (3.5-5.0); ALBUMIN/GLOBULIN RATIO 0.9 (0.8-2.0); ALKALINE PHOSPHATASE 94 IU/L (40-150); ANION GAP 16.2 mmol/L (8-16); BLOOD UREA NITROGEN 22 mg/dL (7-26); BUN/CREATININE RATIO 21 (6-25); CALCIUM 7.9 mg/dL (8.4-10.2); CARBON DIOXIDE 21 mmol/L (22-29); CHLORIDE 108 mmol/L (98-107); CREATINE KINASE 32 IU/L (30-200); CREATININE, SERUM 1.06 mg/dL (0.72-1.25); EST GLOMERULAR FILTRATION RATE 67 ML/MIN (60-); GLUCOSE 217 mg/dL (74-118); LIPASE 5 U/L (8-78); POTASSIUM 4.2 mmol/L (3.5-5.1); SODIUM 141 mmol/L (136-145)
[2020-09-02 18:34] LABS: CLARITY,URINE SL CLOUDY (CLEAR); COLOR,URINE STRAW (YELLOW); KETONES,URINE TRACE (NEGATIVE); LEUKOCYTE ESTERASE ,URINE NEGATIVE (NEGATIVE); NITRITE,URINE NEGATIVE (NEGATIVE); PROTEIN,URINE DIPSTICK 1+ (NEGATIVE); URINE UROBILINOGEN 0.2 mg/dL (0.2 - 1)
[2020-09-02] MEDS ORDERED: SODIUM CHLORIDE 0.9% 1000ML 1,000 ML IV STA ×2 (18:42)
[2020-09-02 18:48] LABS: RBC,URINE 0-5 /HPF (0-5)
[2020-09-02 18:49] LABS: AMORPHOUS SEDIMENT,URINE MODERATE (FEW); BACTERIA,URINE MODERATE /HPF
[2020-09-02] MEDS ORDERED: IOPAMIDOL 370 MG/ML 200 ML INFUS..BTL INJ ONE (23:06)
[2020-09-02] MEDS ORDERED: SODIUM CHLORIDE 0.9% 50ML 50 ML ONE (23:06)
[2020-09-03] MEDS: SODIUM CHLORIDE 0.9% 1000ML 1,000 ML IV SCH ×3 (08:00→22:01)
[2020-09-03 09:33] VITALS: BP 117/59
[2020-09-03] MEDS ORDERED: PREGABALIN50 MG PO (09:47)
[2020-09-03 10:00] VITALS: BP 117/59
[2020-09-03] MEDS ORDERED: DEXTROSE 50% SYRINGE 50 ML IV PRN (10:30)
[2020-09-03] MEDS: HYDROCODONE/APAP 5MG-325MG TAB PO PRN (10:45)
[2020-09-03] MEDS: INSULIN LISPRO 100 UNIT/1 ML 3ML VIAL SQ SCH ×3 (11:30→21:36)
[2020-09-03 11:33] VITALS: BP 136/56
[2020-09-03] MEDS: CEFEPIME 1 GM in SODIUM CHLORIDE 0.9% 50ML 50 ML IV SCH ×2 (12:00→21:32)
[2020-09-03] MEDS ORDERED: HYDROCODONE/APAP 5MG-325MG TAB PO SCH (12:00)
[2020-09-03 16:02] VITALS: BP 123/80
[2020-09-03] MEDS: FAMOTIDINE 20 MG TAB PO SCH (16:53)
[2020-09-03] MEDS: ENOXAPARIN SOD INJ 40 MG/0.4 ML SYR SC SCH (16:54)
[2020-09-03 21:03] VITALS: BP 141/61
[2020-09-03 23:15] VITALS: BP 141/61
[2020-09-04] VITALS (8 sets, daily range): BP systolic 110–152; BP diastolic 55–71
[2020-09-04 05:10] LABS: BASOPHILS % 0.3 % (0.0-1.0); EOSINOPHILS # (AUTO) 0.4 (0.0-0.4); EOSINOPHILS % 5.1 % (0.0-6.0); HEMATOCRIT 37.3 % (38.2-49.6); HEMOGLOBIN 12.1 g/dL (14.0-18.0); LYMPHOCYTES # (AUTO) 0.7 (1.0-3.2); LYMPHOCYTES % 9.6 % (18.0-39.1); MEAN CORPUSCULAR HEMOGLOBIN 28.5 pg (28-32); MEAN CORPUSCULAR HGB CONC 32.4 g/dL (31-35); MONOCYTES # (AUTO) 0.7 (0.2-0.8); NEUTROPHILS # (AUTO) 5.4 (2.1-6.9); NEUTROPHILS % 74.7 % (38.7-80.0); PLATELET COUNT 153 x10e3/uL (140-360); RED BLOOD COUNT 4.24 x10e6/uL (4.3-5.7); RED CELL DISTRIBUTION WIDTH 13.9 % (11.7-14.4)
[2020-09-04 05:29] LABS: ALBUMIN 2.6 g/dL (3.5-5.0); ALBUMIN/GLOBULIN RATIO 0.8 (0.8-2.0); ANION GAP 9.3 mmol/L (8-16); CALCIUM 7.3 mg/dL (8.4-10.2); CREATININE, SERUM 0.91 mg/dL (0.72-1.25); POTASSIUM 3.3 mmol/L (3.5-5.1)
[2020-09-04] MEDS: SODIUM CHLORIDE 0.9% 1000ML 1,000 ML IV SCH ×3 (05:34→23:20)
[2020-09-04] MEDS: INSULIN LISPRO 100 UNIT/1 ML 3ML VIAL SQ SCH ×4 (07:30→20:44)
[2020-09-04] MEDS: FAMOTIDINE 20 MG TAB PO SCH ×2 (07:30→16:39)
[2020-09-04] MEDS: CEFEPIME 1 GM in SODIUM CHLORIDE 0.9% 50ML 50 ML IV SCH ×2 (08:15→20:44)
[2020-09-04] MEDS: METOPROLOL TARTRATE INJ 1 MG/ML VIAL IV SCH ×2 (09:00→20:45)
[2020-09-04] MEDS ORDERED: REGADENOSON 0.4 MG/5 ML SYR IV ONE (12:11)
[2020-09-04] MEDS: ENOXAPARIN SOD INJ 40 MG/0.4 ML SYR SC SCH (16:32)
[2020-09-05] VITALS (8 sets, daily range): BP systolic 150–172; BP diastolic 58–85
[2020-09-05] MEDS: HYDROCODONE/APAP 5MG-325MG TAB PO PRN ×2 (02:18→13:40)
[2020-09-05] MEDS: FAMOTIDINE 20 MG TAB PO SCH ×2 (07:30→17:17)
[2020-09-05] MEDS: INSULIN LISPRO 100 UNIT/1 ML 3ML VIAL SQ SCH ×4 (07:30→20:21)
[2020-09-05] MEDS: METOPROLOL TARTRATE INJ 1 MG/ML VIAL IV SCH (08:54)
[2020-09-05] MEDS: SODIUM CHLORIDE 0.9% 1000ML 1,000 ML IV SCH ×3 (08:55→20:21)
[2020-09-05] MEDS: CEFEPIME 1 GM in SODIUM CHLORIDE 0.9% 50ML 50 ML IV SCH ×2 (08:55→20:17)
[2020-09-05] MEDS: ENOXAPARIN SOD INJ 40 MG/0.4 ML SYR SC SCH (17:17)
[2020-09-05] MEDS ORDERED: METOPROLOL TARTRATE INJ 1 MG/ML VIAL IV PRN (20:00)
[2020-09-05] MEDS: METOPROLOL TARTRATE 25 MG TAB PO SCH (20:19)
[2020-09-06] VITALS (8 sets, daily range): BP systolic 134–151; BP diastolic 63–77
[2020-09-06 05:20] LABS: BASOPHILS % 0.4 % (0.0-1.0); EOSINOPHILS # (AUTO) 1.1 (0.0-0.4); EOSINOPHILS % 12.6 % (0.0-6.0); HEMOGLOBIN 11.4 g/dL (14.0-18.0); LYMPHOCYTES # (AUTO) 0.8 (1.0-3.2); LYMPHOCYTES % 9.2 % (18.0-39.1); MEAN CORPUSCULAR HEMOGLOBIN 27.9 pg (28-32); MEAN CORPUSCULAR HGB CONC 32.6 g/dL (31-35); MEAN CORPUSCULAR VOLUME 85.6 fL (81-99); MONOCYTES # (AUTO) 0.7 (0.2-0.8); MONOCYTES % 7.7 % (4.4-11.3); NEUTROPHILS # (AUTO) 6.2 (2.1-6.9); NEUTROPHILS % 69.3 % (38.7-80.0); PLATELET COUNT 148 x10e3/uL (140-360); RED BLOOD COUNT 4.09 x10e6/uL (4.3-5.7); RED CELL DISTRIBUTION WIDTH 13.5 % (11.7-14.4)
[2020-09-06 05:35] LABS: ANION GAP 10.9 mmol/L (8-16); CALCIUM 7.7 mg/dL (8.4-10.2); CREATININE, SERUM 0.77 mg/dL (0.72-1.25)
[2020-09-06 05:37] LABS: POTASSIUM 2.9 mmol/L (3.5-5.1)
[2020-09-06] MEDS ORDERED: POTASSIUM CHLORIDE 20 MEQ TAB CR PO STA (05:43)
[2020-09-06 06:16] LABS: MAGNESIUM 1.6 MG/DL (1.3-2.1); PHOSPHORUS 1.9 MG/DL (2.3-4.7)
[2020-09-06] MEDS ORDERED: IOPAMIDOL 300MG/ML 50ML INFUS..BTL IV ONE (06:20)
[2020-09-06] MEDS ORDERED: B&O 60MG R/S 60 MG SUPP PR ONE (06:20)
[2020-09-06] MEDS: INSULIN LISPRO 100 UNIT/1 ML 3ML VIAL SQ SCH ×4 (07:30→20:37)
[2020-09-06] MEDS: FAMOTIDINE 20 MG TAB PO SCH ×3 (07:30→16:12)
[2020-09-06] MEDS: METOPROLOL TARTRATE 25 MG TAB PO SCH ×2 (09:43→20:36)
[2020-09-06] MEDS: CEFEPIME 1 GM in SODIUM CHLORIDE 0.9% 50ML 50 ML IV SCH ×2 (09:43→20:30)
[2020-09-06] MEDS ORDERED: POTASSIUM CHLORIDE 20 MEQ TAB CR PO ONE (09:50)
[2020-09-06] MEDS: HYDROCODONE/APAP 5MG-325MG TAB PO PRN ×2 (16:14→22:05)
[2020-09-06] MEDS ORDERED: ACETAMINOPHEN 325 MG TAB PO PRN (16:15)
[2020-09-06] MEDS: ENOXAPARIN SOD INJ 40 MG/0.4 ML SYR SC SCH (16:43)
[2020-09-06] MEDS: SODIUM CHLORIDE 0.9% 1000ML 1,000 ML IV SCH (16:55)
[2020-09-06] MEDS: ATORVASTATIN 20 MG TAB PO SCH (20:30)
[2020-09-07] VITALS (8 sets, daily range): BP systolic 150–168; BP diastolic 53–84
[2020-09-07] MEDS: INSULIN LISPRO 100 UNIT/1 ML 3ML VIAL SQ SCH ×4 (07:30→20:46)
[2020-09-07] MEDS: SODIUM CHLORIDE 0.9% 1000ML 1,000 ML IV SCH (09:19)
[2020-09-07] MEDS: FAMOTIDINE 20 MG TAB PO SCH ×2 (09:19→16:39)
[2020-09-07] MEDS: CEFEPIME 1 GM in SODIUM CHLORIDE 0.9% 50ML 50 ML IV SCH ×2 (09:20→20:43)
[2020-09-07] MEDS: METOPROLOL TARTRATE 25 MG TAB PO SCH ×2 (09:21→20:44)
[2020-09-07] MEDS: LORATADINE 10 MG TAB PO SCH (12:00)
[2020-09-07] MEDS: HYDROXYZINE HCL 10 MG TAB PO PRN (12:00)
[2020-09-07] MEDS ORDERED: LIDOCAINE HCL 2% LOCAL INJ 5 ML SDV VIAL INJ ONE (15:48)
[2020-09-07] MEDS ORDERED: PROPOFOL IV EMULSION 10 MG/ML 20 ML VIAL ONE (15:48)
[2020-09-07] MEDS ORDERED: ONDANSETRON HCL INJ 2MG/ML 2ML 2 MG/ML VIAL ONE (15:48)
[2020-09-07] MEDS ORDERED: DEXAMETHASONE SOD PHOS INJ 4 MG/ML VIAL ONE (15:48)
[2020-09-07] MEDS ORDERED: EPHEDRINE SULFATE INJ 50 MG/ML VIAL ONE (15:48)
[2020-09-07] MEDS ORDERED: SEVOFLURANE INHAL SOLN 250 ML PEN BTL ONE (15:48)
[2020-09-07] MEDS ORDERED: POVIDONE IODINE 0.05% 0.05 % ML PO ONE (15:48)
[2020-09-07] MEDS: ENOXAPARIN SOD INJ 40 MG/0.4 ML SYR SC SCH (16:39)
[2020-09-07] MEDS: ATORVASTATIN 20 MG TAB PO SCH (20:43)
[2020-09-08] VITALS (9 sets, daily range): BP systolic 153–170; BP diastolic 52–89
[2020-09-08 05:15] LABS: BASOPHILS % 0.4 % (0.0-1.0); EOSINOPHILS # (AUTO) 0.9 (0.0-0.4); EOSINOPHILS % 9.8 % (0.0-6.0); HEMATOCRIT 36.2 % (38.2-49.6); HEMOGLOBIN 11.8 g/dL (14.0-18.0); LYMPHOCYTES # (AUTO) 1.2 (1.0-3.2); LYMPHOCYTES % 12.9 % (18.0-39.1); MEAN CORPUSCULAR HGB CONC 32.6 g/dL (31-35); MONOCYTES # (AUTO) 0.8 (0.2-0.8); MONOCYTES % 8.9 % (4.4-11.3); NEUTROPHILS # (AUTO) 5.9 (2.1-6.9); NEUTROPHILS % 64.5 % (38.7-80.0); PLATELET COUNT 146 x10e3/uL (140-360); RED BLOOD COUNT 4.21 x10e6/uL (4.3-5.7); RED CELL DISTRIBUTION WIDTH 13.7 % (11.7-14.4)
[2020-09-08 05:33] LABS: MAGNESIUM 1.7 MG/DL (1.3-2.1); PHOSPHORUS 2.1 MG/DL (2.3-4.7)
[2020-09-08 06:00] LABS: ANION GAP 9.1 mmol/L (8-16); CALCIUM 7.7 mg/dL (8.4-10.2); CREATININE, SERUM 0.73 mg/dL (0.72-1.25); POTASSIUM 3.1 mmol/L (3.5-5.1)
[2020-09-08] MEDS: INSULIN LISPRO 100 UNIT/1 ML 3ML VIAL SQ SCH ×4 (07:30→20:03)
[2020-09-08] MEDS: FAMOTIDINE 20 MG TAB PO SCH ×2 (08:36→16:34)
[2020-09-08] MEDS: LORATADINE 10 MG TAB PO SCH (08:36)
[2020-09-08] MEDS: CEFEPIME 1 GM in SODIUM CHLORIDE 0.9% 50ML 50 ML IV SCH ×2 (08:41→21:16)
[2020-09-08] MEDS: METOPROLOL TARTRATE 25 MG TAB PO SCH ×3 (08:42→20:03)
[2020-09-08] MEDS ORDERED: MAGNESIUM SULFATE 2GM/50ML IV ONE (09:30)
[2020-09-08] MEDS ORDERED: MAGNESIUM SULFATE 2GM/50ML 50 ML IV ONE (09:45)
[2020-09-08] MEDS ORDERED: POTASSIUM PHOSPHATE 20 MM in SODIUM CHLORIDE 0.9% 250ML 250 ML IV ONE (10:00)
[2020-09-08] MEDS: ENOXAPARIN SOD INJ 40 MG/0.4 ML SYR SC SCH (16:34)
[2020-09-08] MEDS: ATORVASTATIN 20 MG TAB PO SCH (20:19)
[2020-09-09] VITALS (8 sets, daily range): BP systolic 127–184; BP diastolic 63–78
[2020-09-09] MEDS: INSULIN LISPRO 100 UNIT/1 ML 3ML VIAL SQ SCH ×4 (07:30→21:00)
[2020-09-09] MEDS: FAMOTIDINE 20 MG TAB PO SCH ×2 (07:30→16:54)
[2020-09-09] MEDS ORDERED: KCL 20 MEQ PACKET/ ORAL SOLN PO ONE (09:00)
[2020-09-09] MEDS: METOPROLOL TARTRATE 25 MG TAB PO SCH ×2 (09:00→21:00)
[2020-09-09] MEDS: LORATADINE 10 MG TAB PO SCH (09:00)
[2020-09-09] MEDS: CEFEPIME 1 GM in SODIUM CHLORIDE 0.9% 50ML 50 ML IV SCH ×2 (09:00→21:28)
[2020-09-09] MEDS: ASPIRIN 81 MG CHEW TAB PO SCH (10:00)
[2020-09-09] MEDS: BALSAM PERU/CASTOR OIL 60 GM OINT...G. TP SCH (16:56)
[2020-09-09] MEDS: ENOXAPARIN SOD INJ 40 MG/0.4 ML SYR SC SCH (16:56)
[2020-09-09] MEDS: NYSTATIN 15 GM POWDER UD BTL TOP SCH (16:56)
[2020-09-09] MEDS: HYDROCODONE/APAP 5MG-325MG TAB PO PRN (20:45)
[2020-09-09] MEDS: ATORVASTATIN 20 MG TAB PO SCH (21:28)
[2020-09-10 01:32] VITALS: BP 118/70
[2020-09-10] MEDS: HYDROXYZINE HCL 10 MG TAB PO PRN (01:42)
[2020-09-10 05:14] LABS: ANION GAP 12.2 mmol/L (8-16); CALCIUM 7.6 mg/dL (8.4-10.2); CREATININE, SERUM 0.75 mg/dL (0.72-1.25); POTASSIUM 3.2 mmol/L (3.5-5.1)
[2020-09-10 05:59] VITALS: BP 161/67
[2020-09-10] MEDS: INSULIN LISPRO 100 UNIT/1 ML 3ML VIAL SQ SCH ×2 (07:30→11:06)
[2020-09-10 07:46] VITALS: BP 154/75
[2020-09-10] MEDS ORDERED: POTASSIUM CHLORIDE 10MEQ EA PO ONE (08:20)
[2020-09-10] MEDS: FAMOTIDINE 20 MG TAB PO SCH (08:22)
[2020-09-10] MEDS: LORATADINE 10 MG TAB PO SCH (08:25)
[2020-09-10] MEDS: ASPIRIN 81 MG CHEW TAB PO SCH (08:25)
[2020-09-10] MEDS: CEFEPIME 1 GM in SODIUM CHLORIDE 0.9% 50ML 50 ML IV SCH (08:25)
[2020-09-10] MEDS: NYSTATIN 15 GM POWDER UD BTL TOP SCH (08:26)
[2020-09-10] MEDS: BALSAM PERU/CASTOR OIL 60 GM OINT...G. TP SCH (08:26)
[2020-09-10 08:30] VITALS: BP 154/75
[2020-09-10] MEDS ORDERED: MAGNESIUM OXIDE 400 MG TAB PO SCH (09:00)
[2020-09-10] MEDS: METOPROLOL TARTRATE 25 MG TAB PO SCH (10:43)
[2020-09-10 12:02] VITALS: BP 148/58
[2020-09-10] MEDS ORDERED: ZINC SULFATE 220 MG CAP PO SCH (17:00)
[2020-09-10] MEDS ORDERED: ENOXAPARIN SOD INJ 40 MG/0.4 ML SYR SC SCH (17:00)
== END 2020-09-10 16:48 | DRG 854 ==
LOC: ER 17:29 → ERHOLD 09-03 05:27 → MED/SURG2 09-03 08:41
PROVIDERS: ADMIT Internal Medicine; ATTEND Internal Medicine
PROC: 0TCB8ZZ Extirpation of Matter from Bladder, Via Natural or Artificial Opening Endoscopic (ICD-10-PCS; 2020-09-06)
PROC: BT141ZZ Fluoroscopy of Kidneys, Ureters and Bladder using Low Osmolar Contrast (ICD-10-PCS; principal; 2020-09-06 06:30)
PROC: 0T778DZ Dilation of Left Ureter with Intraluminal Device, Via Natural or Artificial Opening Endoscopic (ICD-10-PCS; 2020-09-06 06:30)
DX: A41.9 Sepsis, unspecified organism (principal); N13.6 Pyonephrosis; N13.8 Other obstructive and reflux uropathy; I13.0 Hypertensive heart and chronic kidney disease with heart failure and stage 1 through stage 4 chronic kidney disease, or unspecified chronic kidney disease; R65.20 Severe sepsis without septic shock; I25.10 Atherosclerotic heart disease of native coronary artery without angina pectoris; Z95.1 Presence of aortocoronary bypass graft; I50.9 Heart failure, unspecified; E78.5 Hyperlipidemia, unspecified; R31.29 Other microscopic hematuria; R29.810 Facial weakness; N21.0 Calculus in bladder; N40.1 Benign prostatic hyperplasia with lower urinary tract symptoms; R53.81 Other malaise; N18.9 Chronic kidney disease, unspecified; D64.9 Anemia, unspecified; N31.9 Neuromuscular dysfunction of bladder, unspecified; N39.498 Other specified urinary incontinence; N32.81 Overactive bladder; N47.1 Phimosis; E87.6 Hypokalemia
CPT/HCPCS: 36415; 71045; 74177; 74420; 78452; 80048; 80053; 81001; 82550; 82553; 82948; 83036; 83605; 83690; 83735; 84100; 84443; 84484; 85025; 87040; 87086; 88300; 93005; 93017; 96361; 97139; 99251; 99285; A9502; C1758; C2617; J0692; J1100; J1650; J2001; J2405; J3410; J3475; J7030; J7050; Q9967; U0002

== ENCOUNTER 2020-09-24 10:50 | Inpatient (IN) | payer MEDICARE ==
[~2020-09-24] VITALS: Ht 172.7 cm; Wt 99.0 kg
[~2020-09-24 10:50] MED LIST changes: +PREGABALIN50 MG PO
[2020-09-24] MEDS ORDERED: Vancomycin IV 1 GM in SODIUM CHLORIDE 0.9% 250ML 250 ML IV ONE (11:30)
[2020-09-24] MEDS: CEFEPIME 1 GM in SODIUM CHLORIDE 0.9% 50ML 50 ML IV SCH ×2 (11:48→22:09)
[2020-09-24 11:53] LABS: BASOPHILS % 0.5 % (0.0-1.0); EOSINOPHILS # (AUTO) 0.9 (0.0-0.4); EOSINOPHILS % 11.7 % (0.0-6.0); HEMATOCRIT 40.2 % (38.2-49.6); HEMOGLOBIN 12.6 g/dL (14.0-18.0); LYMPHOCYTES % 12.5 % (18.0-39.1); MEAN CORPUSCULAR HEMOGLOBIN 27.9 pg (28-32); MEAN CORPUSCULAR HGB CONC 31.3 g/dL (31-35); MEAN CORPUSCULAR VOLUME 89.1 fL (81-99); MONOCYTES # (AUTO) 0.5 (0.2-0.8); NEUTROPHILS # (AUTO) 5.2 (2.1-6.9); NEUTROPHILS % 67.8 % (38.7-80.0); PLATELET COUNT 193 x10e3/uL (140-360); RED BLOOD COUNT 4.51 x10e6/uL (4.3-5.7); RED CELL DISTRIBUTION WIDTH 13.5 % (11.7-14.4)
[2020-09-24 12:49] LABS: ALBUMIN/GLOBULIN RATIO 0.8 (0.8-2.0); ANION GAP 11.5 mmol/L (8-16); CALCIUM 8.5 mg/dL (8.4-10.2); CREATININE, SERUM 0.95 mg/dL (0.72-1.25); POTASSIUM 4.5 mmol/L (3.5-5.1)
[2020-09-24 12:53] LABS: COLOR,URINE YELLOW (YELLOW); KETONES,URINE NEGATIVE (NEGATIVE); LEUKOCYTE ESTERASE ,URINE 1+ (NEGATIVE); NITRITE,URINE NEGATIVE (NEGATIVE); PROTEIN,URINE DIPSTICK 1+ (NEGATIVE); URINE UROBILINOGEN 0.2 mg/dL (0.2 - 1)
[2020-09-24 13:08] LABS: BACTERIA,URINE MANY /HPF; CLARITY,URINE SL CLOUDY (CLEAR); EPITHELIAL CELLS,URINE FEW /LPF; RBC,URINE >50 /HPF (0-5); WBC,URINE (MAN) >50 /HPF (0-5)
[2020-09-24] MEDS ORDERED: SODIUM CHLORIDE 0.9% 50ML 50 ML ONE (13:51)
[2020-09-24] MEDS ORDERED: IOPAMIDOL 370 MG/ML 200 ML INFUS..BTL INJ ONE (13:51)
[2020-09-24] MEDS ORDERED: ONDANSETRON HCL INJ 2MG/ML 2ML 2 MG/ML VIAL IV PRN (16:30)
[2020-09-24] MEDS ORDERED: DOCUSATE SODIUM 100 MG CAP PO PRN (16:30)
[2020-09-24 16:56] LABS: CHOL/HDL RATIO 3.2 (3.9-4.7)
[2020-09-24] MEDS: ENOXAPARIN SOD INJ 40 MG/0.4 ML SYR SC SCH (17:47)
[2020-09-24] MEDS: ASCORBIC ACID 500 MG TAB PO SCH (17:47)
[2020-09-24] MEDS ORDERED: TRAMADOL HCL 50 MG TAB PO NR (18:45)
[2020-09-24] MEDS ORDERED: TRAMADOL HCL 50 MG TAB PO PRN (18:45)
[2020-09-24 19:20] VITALS: BP 171/94
[2020-09-24 20:30] VITALS: BP 171/94
[2020-09-24 21:30] VITALS: BP 171/94
[2020-09-24] MEDS: METOPROLOL TARTRATE 25 MG TAB PO SCH (22:01)
[2020-09-24] MEDS: PREGABALIN 50 MG CAP PO SCH (22:09)
[2020-09-24] MEDS: ATORVASTATIN 40 MG TAB PO SCH (22:09)
[2020-09-25] VITALS (7 sets, daily range): BP systolic 126–153; BP diastolic 58–80
[2020-09-25 04:57] LABS: BASOPHILS % 0.5 % (0.0-1.0); HEMATOCRIT 39.5 % (38.2-49.6); HEMOGLOBIN 12.6 g/dL (14.0-18.0); LYMPHOCYTES % 12.6 % (18.0-39.1); MEAN CORPUSCULAR HEMOGLOBIN 27.9 pg (28-32); MEAN CORPUSCULAR HGB CONC 31.9 g/dL (31-35); MEAN CORPUSCULAR VOLUME 87.4 fL (81-99); MONOCYTES # (AUTO) 0.7 (0.2-0.8); MONOCYTES % 8.6 % (4.4-11.3); NEUTROPHILS # (AUTO) 4.9 (2.1-6.9); PLATELET COUNT 190 x10e3/uL (140-360); RED BLOOD COUNT 4.52 x10e6/uL (4.3-5.7); RED CELL DISTRIBUTION WIDTH 13.2 % (11.7-14.4)
[2020-09-25] MEDS: Vancomycin IV 1 GM in SODIUM CHLORIDE 0.9% 250ML 250 ML IV SCH (05:10)
[2020-09-25 05:18] LABS: ALBUMIN 2.9 g/dL (3.5-5.0); ALBUMIN/GLOBULIN RATIO 0.9 (0.8-2.0); ANION GAP 11.4 mmol/L (8-16); CALCIUM 8.5 mg/dL (8.4-10.2); CREATININE, SERUM 0.89 mg/dL (0.72-1.25); POTASSIUM 4.4 mmol/L (3.5-5.1)
[2020-09-25] MEDS: CEFEPIME 1 GM in SODIUM CHLORIDE 0.9% 50ML 50 ML IV SCH ×2 (06:45→17:23)
[2020-09-25] MEDS: FAMOTIDINE 20 MG TAB PO SCH ×2 (08:25→17:23)
[2020-09-25] MEDS: ASCORBIC ACID 500 MG TAB PO SCH ×2 (08:26→17:23)
[2020-09-25] MEDS: METOPROLOL TARTRATE 25 MG TAB PO SCH ×2 (08:26→21:00)
[2020-09-25] MEDS: AMLODIPINE BESYLATE 5 MG TAB PO SCH (08:26)
[2020-09-25] MEDS: PREGABALIN 50 MG CAP PO SCH ×3 (08:26→21:00)
[2020-09-25] MEDS ORDERED: ASPIRIN 81 MG ENTERIC COATED PO SCH (09:00)
[2020-09-25] MEDS ORDERED: MULTIVITAMINS/MINERALS TAB PO SCH (09:00)
[2020-09-25] MEDS: HYDROCODONE/APAP 5MG-325MG TAB PO PRN (12:32)
[2020-09-25] MEDS: ENOXAPARIN SOD INJ 40 MG/0.4 ML SYR SC SCH (17:23)
[2020-09-25] MEDS: ATORVASTATIN 40 MG TAB PO SCH (21:00)
[2020-09-26] VITALS (8 sets, daily range): BP systolic 119–150; BP diastolic 58–80
[2020-09-26] MEDS: CEFEPIME 1 GM in SODIUM CHLORIDE 0.9% 50ML 50 ML IV SCH ×3 (01:00→17:17)
[2020-09-26] MEDS: Vancomycin IV 1 GM in SODIUM CHLORIDE 0.9% 250ML 250 ML IV SCH (05:36)
[2020-09-26] MEDS ORDERED: ONDANSETRON HCL 4 MG ORAL DISINTEGRATING TAB PO PRN (09:30)
[2020-09-26] MEDS: PREGABALIN 50 MG CAP PO SCH ×3 (10:24→21:00)
[2020-09-26] MEDS: FAMOTIDINE 20 MG TAB PO SCH ×2 (10:24→17:11)
[2020-09-26] MEDS: AMLODIPINE BESYLATE 5 MG TAB PO SCH (10:25)
[2020-09-26] MEDS: METOPROLOL TARTRATE 25 MG TAB PO SCH ×2 (10:28→21:00)
[2020-09-26] MEDS: HYDROCODONE/APAP 5MG-325MG TAB PO PRN (10:50)
[2020-09-26] MEDS: ENOXAPARIN SOD INJ 40 MG/0.4 ML SYR SC SCH (17:14)
[2020-09-26] MEDS: ATORVASTATIN 40 MG TAB PO SCH (21:00)
[2020-09-26] MEDS: ZOLPIDEM TARTRATE 5 MG TAB PO PRN (21:01)
[2020-09-27] VITALS (8 sets, daily range): BP systolic 106–154; BP diastolic 48–83
[2020-09-27] MEDS: CEFEPIME 1 GM in SODIUM CHLORIDE 0.9% 50ML 50 ML IV SCH ×3 (01:00→17:00)
[2020-09-27] MEDS: BALSAM PERU/CASTOR OIL 60 GM OINT...G. TP SCH ×2 (05:00→09:00)
[2020-09-27] MEDS: Vancomycin IV 1 GM in SODIUM CHLORIDE 0.9% 250ML 250 ML IV SCH (05:28)
[2020-09-27] MEDS: FAMOTIDINE 20 MG TAB PO SCH ×2 (07:30→16:30)
[2020-09-27] MEDS: METOPROLOL TARTRATE 25 MG TAB PO SCH ×2 (09:00→22:39)
[2020-09-27] MEDS: PREGABALIN 50 MG CAP PO SCH ×3 (09:00→22:29)
[2020-09-27] MEDS: AMLODIPINE BESYLATE 5 MG TAB PO SCH (09:00)
[2020-09-27] MEDS: ENOXAPARIN SOD INJ 40 MG/0.4 ML SYR SC SCH (17:00)
[2020-09-27] MEDS: ATORVASTATIN 40 MG TAB PO SCH (22:29)
[2020-09-28] VITALS (9 sets, daily range): BP systolic 110–161; BP diastolic 51–80
[2020-09-28] MEDS: CEFEPIME 1 GM in SODIUM CHLORIDE 0.9% 50ML 50 ML IV SCH ×3 (00:19→16:13)
[2020-09-28] MEDS: Vancomycin IV 1 GM in SODIUM CHLORIDE 0.9% 250ML 250 ML IV SCH (06:39)
[2020-09-28] MEDS: FAMOTIDINE 20 MG TAB PO SCH ×2 (08:36→16:13)
[2020-09-28] MEDS: METOPROLOL TARTRATE 25 MG TAB PO SCH ×2 (08:37→22:15)
[2020-09-28] MEDS: PREGABALIN 50 MG CAP PO SCH ×3 (08:37→22:15)
[2020-09-28] MEDS: AMLODIPINE BESYLATE 5 MG TAB PO SCH (08:37)
[2020-09-28] MEDS: BALSAM PERU/CASTOR OIL 60 GM OINT...G. TP SCH (11:00)
[2020-09-28] MEDS: ENOXAPARIN SOD INJ 40 MG/0.4 ML SYR SC SCH (16:13)
[2020-09-28] MEDS: ATORVASTATIN 40 MG TAB PO SCH (22:15)
[2020-09-29] VITALS (7 sets, daily range): BP systolic 122–162; BP diastolic 55–88
[2020-09-29] MEDS: CEFEPIME 1 GM in SODIUM CHLORIDE 0.9% 50ML 50 ML IV SCH ×3 (01:26→16:48)
[2020-09-29] MEDS: Vancomycin IV 1 GM in SODIUM CHLORIDE 0.9% 250ML 250 ML IV SCH (07:09)
[2020-09-29] MEDS ORDERED: SIMETHICONE 80 MG CHEW PO PRN (07:15)
[2020-09-29 08:13] LABS: BASOPHILS % 0.5 % (0.0-1.0); EOSINOPHILS # (AUTO) 1.2 (0.0-0.4); EOSINOPHILS % 14.1 % (0.0-6.0); HEMOGLOBIN 12.3 g/dL (14.0-18.0); LYMPHOCYTES # (AUTO) 0.9 (1.0-3.2); LYMPHOCYTES % 11.3 % (18.0-39.1); MEAN CORPUSCULAR HEMOGLOBIN 27.3 pg (28-32); MEAN CORPUSCULAR HGB CONC 30.8 g/dL (31-35); MEAN CORPUSCULAR VOLUME 88.9 fL (81-99); MONOCYTES # (AUTO) 0.7 (0.2-0.8); MONOCYTES % 8.2 % (4.4-11.3); NEUTROPHILS # (AUTO) 5.4 (2.1-6.9); NEUTROPHILS % 65.5 % (38.7-80.0); PLATELET COUNT 156 x10e3/uL (140-360); RED CELL DISTRIBUTION WIDTH 13.4 % (11.7-14.4)
[2020-09-29] MEDS: FAMOTIDINE 20 MG TAB PO SCH ×2 (08:16→16:48)
[2020-09-29] MEDS: METOPROLOL TARTRATE 25 MG TAB PO SCH ×2 (08:17→22:23)
[2020-09-29] MEDS: AMLODIPINE BESYLATE 5 MG TAB PO SCH (08:17)
[2020-09-29] MEDS: PREGABALIN 50 MG CAP PO SCH ×3 (08:17→22:23)
[2020-09-29 08:40] LABS: CALCIUM 8.4 mg/dL (8.4-10.2); CREATININE, SERUM 0.77 mg/dL (0.72-1.25)
[2020-09-29] MEDS: BALSAM PERU/CASTOR OIL 60 GM OINT...G. TP SCH (14:35)
[2020-09-29] MEDS: ENOXAPARIN SOD INJ 40 MG/0.4 ML SYR SC SCH (16:48)
[2020-09-29] MEDS: ATORVASTATIN 40 MG TAB PO SCH (22:22)
[2020-09-30] VITALS (7 sets, daily range): BP systolic 142–168; BP diastolic 66–107
[2020-09-30] MEDS: CEFEPIME 1 GM in SODIUM CHLORIDE 0.9% 50ML 50 ML IV SCH ×3 (01:00→17:15)
[2020-09-30] MEDS ORDERED: Vancomycin IV 1 GM VIAL ONE (05:53)
[2020-09-30] MEDS: Vancomycin IV 1 GM in SODIUM CHLORIDE 0.9% 250ML 250 ML IV SCH (06:38)
[2020-09-30] MEDS: FAMOTIDINE 20 MG TAB PO SCH ×2 (08:35→17:15)
[2020-09-30] MEDS: PREGABALIN 50 MG CAP PO SCH ×3 (08:36→21:50)
[2020-09-30] MEDS: AMLODIPINE BESYLATE 5 MG TAB PO SCH (08:36)
[2020-09-30] MEDS: METOPROLOL TARTRATE 25 MG TAB PO SCH ×2 (08:36→21:50)
[2020-09-30 09:09] LABS: BASOPHILS # (AUTO) 0.1 (0.0-0.1); BASOPHILS % 0.5 % (0.0-1.0); EOSINOPHILS % 9.8 % (0.0-6.0); HEMATOCRIT 42.6 % (38.2-49.6); HEMOGLOBIN 13.3 g/dL (14.0-18.0); LYMPHOCYTES % 9.5 % (18.0-39.1); MEAN CORPUSCULAR HEMOGLOBIN 27.5 pg (28-32); MEAN CORPUSCULAR HGB CONC 31.2 g/dL (31-35); MEAN CORPUSCULAR VOLUME 88.2 fL (81-99); MONOCYTES # (AUTO) 0.7 (0.2-0.8); MONOCYTES % 7.1 % (4.4-11.3); NEUTROPHILS # (AUTO) 7.2 (2.1-6.9); NEUTROPHILS % 72.7 % (38.7-80.0); PLATELET COUNT 157 x10e3/uL (140-360); RED BLOOD COUNT 4.83 x10e6/uL (4.3-5.7); RED CELL DISTRIBUTION WIDTH 13.2 % (11.7-14.4)
[2020-09-30 09:42] LABS: ANION GAP 12.9 mmol/L (8-16); CALCIUM 8.4 mg/dL (8.4-10.2); CREATININE, SERUM 0.8 mg/dL (0.72-1.25); POTASSIUM 3.9 mmol/L (3.5-5.1)
[2020-09-30] MEDS: BALSAM PERU/CASTOR OIL 60 GM OINT...G. TP SCH (11:06)
[2020-09-30] MEDS: ENOXAPARIN SOD INJ 40 MG/0.4 ML SYR SC SCH (17:15)
[2020-09-30] MEDS: ATORVASTATIN 40 MG TAB PO SCH (21:50)
[2020-10-01] VITALS (8 sets, daily range): BP systolic 122–165; BP diastolic 51–70
[2020-10-01] MEDS: CEFEPIME 1 GM in SODIUM CHLORIDE 0.9% 50ML 50 ML IV SCH ×3 (00:50→17:11)
[2020-10-01] MEDS: Vancomycin IV 1 GM in SODIUM CHLORIDE 0.9% 250ML 250 ML IV SCH (05:41)
[2020-10-01] MEDS: FAMOTIDINE 20 MG TAB PO SCH ×2 (09:20→17:11)
[2020-10-01] MEDS: BALSAM PERU/CASTOR OIL 60 GM OINT...G. TP SCH (09:21)
[2020-10-01] MEDS: PREGABALIN 50 MG CAP PO SCH ×3 (09:21→20:57)
[2020-10-01] MEDS: AMLODIPINE BESYLATE 5 MG TAB PO SCH (09:21)
[2020-10-01] MEDS: METOPROLOL TARTRATE 25 MG TAB PO SCH ×2 (09:21→20:57)
[2020-10-01] MEDS: ENOXAPARIN SOD INJ 40 MG/0.4 ML SYR SC SCH (16:30)
[2020-10-01] MEDS: ZOLPIDEM TARTRATE 5 MG TAB PO PRN (20:57)
[2020-10-01] MEDS: ATORVASTATIN 40 MG TAB PO SCH (20:57)
[2020-10-02] VITALS (8 sets, daily range): BP systolic 101–153; BP diastolic 55–78
[2020-10-02] MEDS: CEFEPIME 1 GM in SODIUM CHLORIDE 0.9% 50ML 50 ML IV SCH ×3 (00:58→17:56)
[2020-10-02] MEDS: Vancomycin IV 1 GM in SODIUM CHLORIDE 0.9% 250ML 250 ML IV SCH (05:51)
[2020-10-02] MEDS: BALSAM PERU/CASTOR OIL 60 GM OINT...G. TP SCH (09:34)
[2020-10-02] MEDS: METOPROLOL TARTRATE 25 MG TAB PO SCH ×2 (09:34→20:53)
[2020-10-02] MEDS: FAMOTIDINE 20 MG TAB PO SCH ×2 (09:34→17:56)
[2020-10-02] MEDS: AMLODIPINE BESYLATE 5 MG TAB PO SCH (09:34)
[2020-10-02] MEDS: ATORVASTATIN 40 MG TAB PO SCH (20:53)
[2020-10-03] VITALS (7 sets, daily range): BP systolic 134–154; BP diastolic 61–75
[2020-10-03] MEDS: CEFEPIME 1 GM in SODIUM CHLORIDE 0.9% 50ML 50 ML IV SCH ×3 (00:26→17:24)
[2020-10-03] MEDS: Vancomycin IV 1 GM in SODIUM CHLORIDE 0.9% 250ML 250 ML IV SCH ×2 (05:40→22:05)
[2020-10-03] MEDS ORDERED: CITRATE OF MAGNESIA 300ML BOTTLE PO ONE ×2 (08:45→11:15)
[2020-10-03] MEDS: AMLODIPINE BESYLATE 5 MG TAB PO SCH (09:29)
[2020-10-03] MEDS: FAMOTIDINE 20 MG TAB PO SCH ×2 (09:29→17:24)
[2020-10-03] MEDS: METOPROLOL TARTRATE 25 MG TAB PO SCH ×2 (09:29→22:05)
[2020-10-03] MEDS: BALSAM PERU/CASTOR OIL 60 GM OINT...G. TP SCH (09:31)
[2020-10-03] MEDS: ATORVASTATIN 40 MG TAB PO SCH (22:05)
[2020-10-03] MEDS ORDERED: SODIUM CHLORIDE 0.9% 100 ML ONE (22:23)
[2020-10-04] VITALS (7 sets, daily range): BP systolic 122–146; BP diastolic 45–96
[2020-10-04] MEDS: CEFEPIME 1 GM in SODIUM CHLORIDE 0.9% 50ML 50 ML IV SCH ×3 (01:00→17:12)
[2020-10-04] MEDS: FAMOTIDINE 20 MG TAB PO SCH ×2 (07:30→17:12)
[2020-10-04] MEDS: METOPROLOL TARTRATE 25 MG TAB PO SCH ×2 (08:52→20:35)
[2020-10-04] MEDS: AMLODIPINE BESYLATE 5 MG TAB PO SCH (08:53)
[2020-10-04] MEDS: Vancomycin IV 1 GM in SODIUM CHLORIDE 0.9% 250ML 250 ML IV SCH ×2 (08:53→20:35)
[2020-10-04] MEDS: BALSAM PERU/CASTOR OIL 60 GM OINT...G. TP SCH (11:21)
[2020-10-04] MEDS ORDERED: POVIDONE IODINE 0.05% 0.05 % ML PO ONE (12:42)
[2020-10-04] MEDS ORDERED: ONDANSETRON HCL INJ 2MG/ML 2ML 2 MG/ML VIAL ONE (12:42)
[2020-10-04] MEDS ORDERED: PROPOFOL IV EMULSION 10 MG/ML 20 ML VIAL ONE (12:42)
[2020-10-04] MEDS ORDERED: SEVOFLURANE INHAL SOLN 250 ML PEN BTL ONE (12:42)
[2020-10-04] MEDS ORDERED: LIDOCAINE HCL 2% LOCAL INJ 5 ML SDV VIAL INJ ONE (12:42)
[2020-10-04] MEDS: ATORVASTATIN 40 MG TAB PO SCH (20:35)
[2020-10-05] VITALS (8 sets, daily range): BP systolic 127–152; BP diastolic 55–81
[2020-10-05] MEDS: CEFEPIME 1 GM in SODIUM CHLORIDE 0.9% 50ML 50 ML IV SCH ×2 (01:00→10:28)
[2020-10-05] MEDS: AMLODIPINE BESYLATE 5 MG TAB PO SCH (10:28)
[2020-10-05] MEDS: METOPROLOL TARTRATE 25 MG TAB PO SCH (10:28)
[2020-10-05] MEDS: Vancomycin IV 1 GM in SODIUM CHLORIDE 0.9% 250ML 250 ML IV SCH ×2 (10:28→21:53)
[2020-10-05] MEDS: FAMOTIDINE 20 MG TAB PO SCH ×2 (10:28→17:39)
[2020-10-05] MEDS: BALSAM PERU/CASTOR OIL 60 GM OINT...G. TP SCH (11:05)
[2020-10-05] MEDS: METOPROLOL TARTRATE 50 MG TAB PO SCH ×2 (16:16→21:53)
[2020-10-05] MEDS: ATORVASTATIN 40 MG TAB PO SCH (21:53)
[2020-10-06] VITALS (8 sets, daily range): BP systolic 140–165; BP diastolic 54–82
[2020-10-06] MEDS: ACETAMINOPHEN 325 MG TAB PO PRN ×2 (01:20→23:34)
[2020-10-06] MEDS: Vancomycin IV 1 GM in SODIUM CHLORIDE 0.9% 250ML 250 ML IV SCH ×2 (08:41→22:03)
[2020-10-06] MEDS: FAMOTIDINE 20 MG TAB PO SCH ×2 (08:41→16:14)
[2020-10-06] MEDS: METOPROLOL TARTRATE 50 MG TAB PO SCH ×2 (08:42→22:04)
[2020-10-06] MEDS: BALSAM PERU/CASTOR OIL 60 GM OINT...G. TP SCH (08:43)
[2020-10-06] MEDS: ATORVASTATIN 40 MG TAB PO SCH (22:03)
[2020-10-07] VITALS (7 sets, daily range): BP systolic 127–172; BP diastolic 55–95
[2020-10-07] MEDS: FAMOTIDINE 20 MG TAB PO SCH ×2 (07:30→16:30)
[2020-10-07] MEDS: Vancomycin IV 1 GM in SODIUM CHLORIDE 0.9% 250ML 250 ML IV SCH ×2 (09:00→22:28)
[2020-10-07] MEDS: BALSAM PERU/CASTOR OIL 60 GM OINT...G. TP SCH (09:00)
[2020-10-07] MEDS: METOPROLOL TARTRATE 50 MG TAB PO SCH ×2 (09:00→22:28)
[2020-10-07 12:21] LABS: BASOPHILS % 0.4 % (0.0-1.0); EOSINOPHILS # (AUTO) 1.1 (0.0-0.4); EOSINOPHILS % 10.8 % (0.0-6.0); HEMOGLOBIN 12.1 g/dL (14.0-18.0); LYMPHOCYTES % 9.5 % (18.0-39.1); MEAN CORPUSCULAR HEMOGLOBIN 27.6 pg (28-32); MEAN CORPUSCULAR VOLUME 88.8 fL (81-99); MONOCYTES # (AUTO) 0.7 (0.2-0.8); MONOCYTES % 6.7 % (4.4-11.3); NEUTROPHILS # (AUTO) 7.3 (2.1-6.9); NEUTROPHILS % 72.2 % (38.7-80.0); PLATELET COUNT 165 x10e3/uL (140-360); RED BLOOD COUNT 4.39 x10e6/uL (4.3-5.7); RED CELL DISTRIBUTION WIDTH 13.4 % (11.7-14.4)
[2020-10-07 12:56] LABS: MAGNESIUM 1.9 MG/DL (1.3-2.1); PHOSPHORUS 2.5 MG/DL (2.3-4.7)
[2020-10-07] MEDS: HYDRALAZINE HCL 25 MG TAB PO SCH ×2 (13:00→16:39)
[2020-10-07 13:22] LABS: ANION GAP 10.4 mmol/L (8-16); CALCIUM 8.2 mg/dL (8.4-10.2); CREATININE, SERUM 0.75 mg/dL (0.72-1.25); POTASSIUM 3.4 mmol/L (3.5-5.1)
[2020-10-07] MEDS: ATORVASTATIN 40 MG TAB PO SCH (22:27)
[2020-10-08] VITALS (7 sets, daily range): BP systolic 143–154; BP diastolic 59–93
[2020-10-08] MEDS: Vancomycin IV 1 GM in SODIUM CHLORIDE 0.9% 250ML 250 ML IV SCH ×2 (09:09→21:55)
[2020-10-08] MEDS: FAMOTIDINE 20 MG TAB PO SCH ×2 (09:09→16:30)
[2020-10-08] MEDS: BALSAM PERU/CASTOR OIL 60 GM OINT...G. TP SCH (09:10)
[2020-10-08] MEDS: HYDRALAZINE HCL 25 MG TAB PO SCH ×2 (09:10→17:00)
[2020-10-08] MEDS: METOPROLOL TARTRATE 50 MG TAB PO SCH ×2 (09:10→21:30)
[2020-10-08] MEDS: ATORVASTATIN 40 MG TAB PO SCH (21:30)
[2020-10-09] VITALS (8 sets, daily range): BP systolic 91–155; BP diastolic 58–69
[2020-10-09] MEDS: HYDRALAZINE HCL 25 MG TAB PO SCH ×2 (09:50→17:12)
[2020-10-09] MEDS: FAMOTIDINE 20 MG TAB PO SCH ×2 (09:50→17:12)
[2020-10-09] MEDS: Vancomycin IV 1 GM in SODIUM CHLORIDE 0.9% 250ML 250 ML IV SCH ×2 (09:50→22:05)
[2020-10-09] MEDS: BALSAM PERU/CASTOR OIL 60 GM OINT...G. TP SCH (09:51)
[2020-10-09] MEDS: METOPROLOL TARTRATE 50 MG TAB PO SCH ×2 (09:51→22:06)
[2020-10-09] MEDS: ATORVASTATIN 40 MG TAB PO SCH (22:05)
[2020-10-10] VITALS (8 sets, daily range): BP systolic 119–158; BP diastolic 54–78
[2020-10-10] MEDS: FAMOTIDINE 20 MG TAB PO SCH ×2 (08:25→17:20)
[2020-10-10] MEDS: Vancomycin IV 1 GM in SODIUM CHLORIDE 0.9% 250ML 250 ML IV SCH ×2 (08:25→21:40)
[2020-10-10] MEDS: HYDRALAZINE HCL 25 MG TAB PO SCH ×2 (08:25→17:20)
[2020-10-10] MEDS: METOPROLOL TARTRATE 50 MG TAB PO SCH ×2 (08:26→21:40)
[2020-10-10] MEDS: BALSAM PERU/CASTOR OIL 60 GM OINT...G. TP SCH (19:21)
[2020-10-10] MEDS: ATORVASTATIN 40 MG TAB PO SCH (21:40)
[2020-10-11] VITALS (8 sets, daily range): BP systolic 106–159; BP diastolic 52–88
[2020-10-11] MEDS: ACETAMINOPHEN 325 MG TAB PO PRN (00:19)
[2020-10-11] MEDS: FAMOTIDINE 20 MG TAB PO SCH ×2 (07:30→16:30)
[2020-10-11] MEDS: METOPROLOL TARTRATE 50 MG TAB PO SCH ×2 (09:00→21:28)
[2020-10-11] MEDS: BALSAM PERU/CASTOR OIL 60 GM OINT...G. TP SCH (09:00)
[2020-10-11] MEDS: HYDRALAZINE HCL 25 MG TAB PO SCH ×2 (09:00→17:00)
[2020-10-11] MEDS: Vancomycin IV 1 GM in SODIUM CHLORIDE 0.9% 250ML 250 ML IV SCH ×2 (09:00→21:28)
[2020-10-11] MEDS: ATORVASTATIN 40 MG TAB PO SCH (21:27)
[2020-10-11] MEDS ORDERED: SODIUM CHLORIDE 0.9% 250ML 250 ML ONE (23:51)
[2020-10-12 00:36] VITALS: BP 136/60
[2020-10-12 06:30] VITALS: BP 128/62
[2020-10-12] MEDS: FAMOTIDINE 20 MG TAB PO SCH (07:30)
[2020-10-12 08:50] VITALS: BP 128/62
[2020-10-12] MEDS: HYDRALAZINE HCL 25 MG TAB PO SCH (09:00)
[2020-10-12] MEDS: Vancomycin IV 1 GM in SODIUM CHLORIDE 0.9% 250ML 250 ML IV SCH (09:00)
[2020-10-12] MEDS: BALSAM PERU/CASTOR OIL 60 GM OINT...G. TP SCH (09:00)
[2020-10-12] MEDS: METOPROLOL TARTRATE 50 MG TAB PO SCH (09:00)
[2020-10-12 09:26] VITALS: BP 90/44
[2020-10-12 12:29] VITALS: BP 118/60
[2020-10-12] MEDS ORDERED: COLACE100 MG PO (12:58)
[2020-10-12] MEDS ORDERED: METOPROLOL TART50 MG PO (12:58)
[2020-10-12] MEDS ORDERED: SIMETHICONE80 MG PO (12:58)
[2020-10-12] MEDS ORDERED: HYDRALAZINE HCL25 MG PO (12:58)
== END 2020-10-12 15:52 | disposition hospice, home (50) | DRG 982 ==
LOC: ER 10:57 → ERHOLD 15:10 → MED/SURG2 19:08 → OBSVTOIN 09-25 13:34
PROVIDERS: ADMIT Internal Medicine; ATTEND Internal Medicine
PROC: 0T2BX0Z Change Drainage Device in Bladder, External Approach (ICD-10-PCS; 2020-10-04)
PROC: 0TC13ZZ Extirpation of Matter from Left Kidney, Percutaneous Approach (ICD-10-PCS; principal; 2020-10-04 11:32)
DX: L89.152 Pressure ulcer of sacral region, stage 2 (principal); I50.32 Chronic diastolic (congestive) heart failure; N13.30 Unspecified hydronephrosis; N20.0 Calculus of kidney; R33.9 Retention of urine, unspecified; E11.9 Type 2 diabetes mellitus without complications; I11.0 Hypertensive heart disease with heart failure; I25.10 Atherosclerotic heart disease of native coronary artery without angina pectoris; E78.5 Hyperlipidemia, unspecified; M19.90 Unspecified osteoarthritis, unspecified site; Z96.0 Presence of urogenital implants; N31.9 Neuromuscular dysfunction of bladder, unspecified; N40.0 Benign prostatic hyperplasia without lower urinary tract symptoms; E66.01 Morbid (severe) obesity due to excess calories; E66.9 Obesity, unspecified; D64.9 Anemia, unspecified; Z68.31 Body mass index [BMI] 31.0-31.9, adult; I25.2 Old myocardial infarction; Z87.440 Personal history of urinary (tract) infections; Z87.442 Personal history of urinary calculi; Z95.1 Presence of aortocoronary bypass graft; Z20.822 Contact with and (suspected) exposure to COVID-19
CPT/HCPCS: 36415; 50590; 74018; 74177; 80048; 80053; 80061; 80202; 81001; 82550; 82553; 82948; 83605; 83735; 84100; 84132; 84484; 85025; 87040; 87086; 97139; 99251; 99285; G0378; J0692; J1650; J2001; J2405; J3370; J7050; Q9967; U0002

== ENCOUNTER 2020-10-29 12:14 | Observation (INO) | payer MEDICARE ==
[~2020-10-29] VITALS: Ht 325.1 cm; Wt 96.2 kg
[~2020-10-29 12:14] MED LIST changes: +METOPROLOL TART50 MG PO; +SIMETHICONE80 MG PO
[2020-10-29] MEDS ORDERED: ONDANSETRON HCL INJ 2MG/ML 2ML 2 MG/ML VIAL IV NR (13:15)
[2020-10-29] MEDS ORDERED: MORPHINE SULFATE INJ 2 MG/ML SYR IV NR (13:30)
[2020-10-29 15:59] LABS: BASOPHILS % 0.2 % (0.0-1.0); CLARITY,URINE TURBID (CLEAR); COLOR,URINE YELLOW (YELLOW); EOSINOPHILS # (AUTO) 0.1 (0.0-0.4); EOSINOPHILS % 0.8 % (0.0-6.0); HEMATOCRIT 40.5 % (38.2-49.6); HEMOGLOBIN 12.4 g/dL (14.0-18.0); KETONES,URINE NEGATIVE (NEGATIVE); LEUKOCYTE ESTERASE ,URINE LARGE (NEGATIVE); LYMPHOCYTES # (AUTO) 0.8 (1.0-3.2); LYMPHOCYTES % 5.3 % (18.0-39.1); MEAN CORPUSCULAR HGB CONC 30.6 g/dL (31-35); MONOCYTES # (AUTO) 1.1 (0.2-0.8); MONOCYTES % 7.5 % (4.4-11.3); NEUTROPHILS # (AUTO) 12.4 (2.1-6.9); NEUTROPHILS % 85.7 % (38.7-80.0); NITRITE,URINE NEGATIVE (NEGATIVE); PLATELET COUNT 197 x10e3/uL (140-360); PROTEIN,URINE DIPSTICK >=300 (NEGATIVE); RED CELL DISTRIBUTION WIDTH 13.7 % (11.7-14.4); URINE UROBILINOGEN 0.2 mg/dL (0.2 - 1)
[2020-10-29 16:07] LABS: BACTERIA,URINE FEW /HPF; WBC,URINE (MAN) >50 /HPF (0-5)
[2020-10-29 16:12] LABS: INR 1.3; PARTIAL THROMBOPLASTIN TIME 32.6 seconds (23.8-35.5); PROTHROMBIN TIME 16.4 seconds (11.9-14.5)
[2020-10-29 16:30] LABS: ANION GAP 17.1 mmol/L (8-16); BLOOD UREA NITROGEN 35 mg/dL (7-26); BUN/CREATININE RATIO 12 (6-25); CARBON DIOXIDE 24 mmol/L (22-29); CHLORIDE 106 mmol/L (98-107); CREATININE, SERUM 2.98 mg/dL (0.72-1.25); EST GLOMERULAR FILTRATION RATE 20 ML/MIN (60-); POTASSIUM 5.1 mmol/L (3.5-5.1); SODIUM 142 mmol/L (136-145)
[2020-10-29 16:31] LABS: ALANINE AMINOTRANSFERASE 7 IU/L (0-55); ALBUMIN 2.8 g/dL (3.5-5.0); ALBUMIN/GLOBULIN RATIO 0.7 (0.8-2.0); ALKALINE PHOSPHATASE 110 IU/L (40-150); CALCIUM 8.6 mg/dL (8.4-10.2); CREATINE KINASE 109 IU/L (30-200); GLUCOSE 149 mg/dL (74-118); MAGNESIUM 2.2 MG/DL (1.3-2.1)
[2020-10-29 16:32] LABS: AMYLASE 15 U/L (25-125); LIPASE < 4 U/L (8-78)
[2020-10-29] MEDS ORDERED: SODIUM CHLORIDE 0.9% 250ML 250 ML ONE (16:40)
[2020-10-29] MEDS ORDERED: SODIUM CHLORIDE 0.9% 500ML 500 ML IV ONE (16:45)
[2020-10-29] MEDS: MEROPENEM 500 MG in SODIUM CHLORIDE 0.9% 50ML 50 ML IV SCH (16:55)
[2020-10-29 18:30] LABS: ANION GAP 18.1 mmol/L (8-16); CREATININE, SERUM 2.53 mg/dL (0.72-1.25); POTASSIUM 5.1 mmol/L (3.5-5.1)
[2020-10-29] MEDS ORDERED: ONDANSETRON HCL INJ 2MG/ML 2ML 2 MG/ML VIAL IV STA (20:22)
[2020-10-29] MEDS ORDERED: MORPHINE SULFATE INJ 4 MG/ML INJ 1ML IV PRN (20:30)
[2020-10-29] MEDS: PIPERACILLIN/TAZOBACTAM 3.375 GM in SODIUM CHLORIDE 0.9% 50ML 50 ML IV SCH (20:55)
[2020-10-29] MEDS: SODIUM CHLORIDE 0.9% 1000ML 1,000 ML IV SCH (20:55)
[2020-10-30] VITALS (10 sets, daily range): BP systolic 104–146; BP diastolic 58–80
[2020-10-30] MEDS ORDERED: ACETAMINOPHEN 325 MG TAB PO PRN (01:30)
[2020-10-30] MEDS: PIPERACILLIN/TAZOBACTAM 3.375 GM in SODIUM CHLORIDE 0.9% 50ML 50 ML IV SCH ×4 (02:01→19:48)
[2020-10-30 05:09] LABS: BASOPHILS % 0.3 % (0.0-1.0); EOSINOPHILS # (AUTO) 0.4 (0.0-0.4); EOSINOPHILS % 3.4 % (0.0-6.0); HEMATOCRIT 34.6 % (38.2-49.6); HEMOGLOBIN 10.2 g/dL (14.0-18.0); LYMPHOCYTES # (AUTO) 0.9 (1.0-3.2); LYMPHOCYTES % 8.6 % (18.0-39.1); MEAN CORPUSCULAR HEMOGLOBIN 26.6 pg (28-32); MEAN CORPUSCULAR HGB CONC 29.5 g/dL (31-35); MEAN CORPUSCULAR VOLUME 90.1 fL (81-99); MONOCYTES # (AUTO) 0.9 (0.2-0.8); MONOCYTES % 8.2 % (4.4-11.3); NEUTROPHILS # (AUTO) 8.2 (2.1-6.9); PLATELET COUNT 148 x10e3/uL (140-360); RED BLOOD COUNT 3.84 x10e6/uL (4.3-5.7); RED CELL DISTRIBUTION WIDTH 13.6 % (11.7-14.4)
[2020-10-30 05:32] LABS: ALBUMIN 2.2 g/dL (3.5-5.0); ALBUMIN/GLOBULIN RATIO 0.7 (0.8-2.0); ALKALINE PHOSPHATASE 83 IU/L (40-150); ANION GAP 13.4 mmol/L (8-16); BLOOD UREA NITROGEN 31 mg/dL (7-26); BUN/CREATININE RATIO 18 (6-25); CALCIUM 7.5 mg/dL (8.4-10.2); CARBON DIOXIDE 23 mmol/L (22-29); CHLORIDE 110 mmol/L (98-107); EST GLOMERULAR FILTRATION RATE 39 ML/MIN (60-); GLUCOSE 118 mg/dL (74-118); POTASSIUM 4.4 mmol/L (3.5-5.1); SODIUM 142 mmol/L (136-145)
[2020-10-30] MEDS: MEROPENEM 500 MG in SODIUM CHLORIDE 0.9% 50ML 50 ML IV SCH (06:14)
[2020-10-30 06:54] LABS: ALANINE AMINOTRANSFERASE < 6 IU/L (0-55)
[2020-10-30] MEDS: SODIUM CHLORIDE 0.9% 1000ML 1,000 ML IV SCH ×2 (08:31→11:00)
[2020-10-31] VITALS (7 sets, daily range): BP systolic 134–180; BP diastolic 60–79
[2020-10-31] MEDS: PIPERACILLIN/TAZOBACTAM 3.375 GM in SODIUM CHLORIDE 0.9% 50ML 50 ML IV SCH ×3 (01:48→15:47)
[2020-10-31] MEDS: SODIUM CHLORIDE 0.9% 1000ML 1,000 ML IV SCH ×3 (03:00→11:00)
[2020-10-31 05:09] LABS: BASOPHILS % 0.2 % (0.0-1.0); EOSINOPHILS # (AUTO) 0.6 (0.0-0.4); HEMATOCRIT 33.5 % (38.2-49.6); HEMOGLOBIN 10.2 g/dL (14.0-18.0); LYMPHOCYTES # (AUTO) 0.7 (1.0-3.2); LYMPHOCYTES % 6.8 % (18.0-39.1); MEAN CORPUSCULAR HEMOGLOBIN 26.5 pg (28-32); MEAN CORPUSCULAR HGB CONC 30.4 g/dL (31-35); MONOCYTES # (AUTO) 0.5 (0.2-0.8); MONOCYTES % 5.2 % (4.4-11.3); NEUTROPHILS # (AUTO) 8.4 (2.1-6.9); NEUTROPHILS % 81.1 % (38.7-80.0); PLATELET COUNT 173 x10e3/uL (140-360); RED BLOOD COUNT 3.85 x10e6/uL (4.3-5.7); RED CELL DISTRIBUTION WIDTH 13.2 % (11.7-14.4)
[2020-10-31 05:28] LABS: ANION GAP 12.8 mmol/L (8-16); CALCIUM 7.5 mg/dL (8.4-10.2); CREATININE, SERUM 0.9 mg/dL (0.72-1.25); POTASSIUM 3.8 mmol/L (3.5-5.1)
[2020-10-31] MEDS ORDERED: BALSAM PERU/CASTOR OIL 60 GM OINT...G. TP SCH (09:00)
== END 2020-10-31 20:49 | disposition hospice, home (50) ==
LOC: ER 13:00 → ERHOLD 20:36 → MED/SURG2 23:40
PROVIDERS: ADMIT Family Medicine; ATTEND Family Medicine
DX: A41.9 Sepsis, unspecified organism (principal); N39.0 Urinary tract infection, site not specified; R33.9 Retention of urine, unspecified; I25.10 Atherosclerotic heart disease of native coronary artery without angina pectoris; Z95.1 Presence of aortocoronary bypass graft; Z20.822 Contact with and (suspected) exposure to COVID-19; G92 Toxic encephalopathy; N17.9 Acute kidney failure, unspecified
CPT/HCPCS: 36415 ×3; 71045; 74176; 80048 ×2; 80053 ×2; 81001; 82150; 82550; 82553; 82948; 83690; 83735; 83880; 84484; 85025 ×3; 85610; 85730; 87040; 87086; 87186; 93005; 99251; 99284; G0378 ×3; J2185 ×2; J2270; J2405; J2543 ×3; J7030 ×3; J7050; U0002